=== PATIENT | female | born 1935 | race Caucasian/White ===

== ENCOUNTER 2025-03-06 22:39 | Inpatient (IN) | payer MEDICARE, SELFPAY ==
[2025-03-06] VITALS (27 sets, daily range): BP systolic 101–153; BP diastolic 63–115; BMI 17.8
[2025-03-06 19:24] LABS: Hematocrit 42.0 % (37.0-47.0); Hemoglobin 13.1 g/dL (12.0-16.0); Mean Corp Hgb Conc. 31.2 g/dL (33.0-37.0); Mean Corpuscular Volume 91.7 fL (81.0-99.0); Nucleated Red Blood Cells % 0 %; Platelet Count 268 10^3/uL (130-400); Red Cell Dist. Width 16.3 % (11.5-14.5)
[2025-03-06] MEDS: NSS 500 IV (19:40)
[2025-03-06] MEDS: ADENOCARD 6 MG IV (19:40)
[2025-03-06] MEDS: ADENOCARD 12 MG IV (19:44)
[2025-03-06 19:48] LABS: ALT (SGPT) 15 U/L (0-35); AST (SGOT) 22 U/L (14-36); Albumin 4.3 g/dl (3.5-5.0); Alkaline Phosphatase 117 U/L (38-126); Blood Urea Nitrogen 18 mg/dl (7-17); Calcium 9.6 mg/dl (8.4-10.2); Carbon Dioxide 29 mmol/L (22-30); Chloride 95 mmol/L (98-107); Estimated Creatinine Clearance 31 ml/min; Glucose 122 mg/dl (70-99); Lipase 32 U/L (23-300); Potassium 3.6 mmol/L (3.5-5.1); Sodium 135 mmol/L (135-145); Total Protein 7.2 g/dl (6.3-8.2); eGFR > 60.00
--- NOTE | 2025-03-06 19:56 | ED.GENMED ---
History of Present Illness
General
Chief Complaint: Heart Rate Problem
Source: patient and ambulance crew
Exam Limitations: none
Time Seen by Provider: 03/06/25 19:02
Nursing documentation reviewed up to this point in time: agreed with
History of Present Illness
History of Present Illness:
89-year-old female smoker not on home oxygen presents with fatigue cough abdominal pain constipation for a few weeks, she thought due to taking oxycodone for chronic back pain trying Ex-Lax much relief had increased pain in her upper abdomen afraid
that she was going to fall she felt weak and short of breath EMS was called found her to be in SVT given adenosine with no relief although sounds like the IV infiltrated, here she was tachypneic tachycardic placed on oxygen treated with adenosine x
2 with transient improvement of her heart rate and then back into the A-fib
Past History
Past History
ED Past Medical History: HTN
Social History
Tobacco: Smoker
Alcohol: None
Drug: None
Living: with family
Phy Exam
Physical Exam
Physical Exam:
Physical Exam
General: Ill-appearing female
Neck: No jaundice
Heart: Tachycardic
Lungs: Rhonchi bilaterally
Abdomen: Soft positive epigastric pain
Neuro: alert and oriented
Skin: no rash
Psychiatric: well kept. interactive and cooperative
Extremities: Slight edema
Course
Orders/Labs/Results
Orders:
Orders
03/06/25 19:11
EKG [Electrocardiogram (*1)] Urgent
Reason for Study: Tachycardia
EKG- Treatment ONCE
03/06/25 19:18
Complete Blood Count/With Diff Urgent
Comprehensive Metabolic Panel Urgent
Lipase Urgent
Comment: ADDON
Troponin I Urgent
03/06/25 19:34
0.9% Sodium Chloride 500 ml [Nss] 500 ml IV BOLUS
Adenosine [Adenocard] 6 mg IV NOW STA
03/06/25 19:35
Add On- LAB Urgent
Tests Added?: lipase
CR Chest Portable - 1 View Urgent
Comment:
Reason For Exam: sob
Reason Study Needs to be Portable: Patient Unstable
03/06/25 19:36
CT Abd/pelvis W Iv Cont Urgent
Comment:
Reason For Exam: full of stool pain
03/06/25 19:44
Adenosine [Adenocard] 12 mg .ROUTE .STK-MED ONE
Adenosine [Adenocard] 12 mg IV NOW STA
03/06/25 19:48
Adenosine [Adenocard] 12 mg IV NOW STA
Diltiazem HCl [Cardizem] 10 mg IV NOW STA
03/06/25 20:00
Diltiazem 125 mg/125 ml Nss [Cardizem] 125 mg in 125 ml IV PER PROTOCOL
Initial dose in mg/hr, then titrate:: 5
Titrate to keep:: Heart rate 80-100 bpm
Titrate by mg/hr:: 5 mg/hr
Frequency of titrations (minutes):: 15
Maximum dose in mg/hr:: 15
03/06/25 21:36
Doxycycline Hyclate [Vibramycin] 100 mg 0.9% Sodium Chloride 250 ml [Nss] 250 ml IV NOW
03/06/25 21:45
Blood Culture Q30M
LISSA Source: Blood/Venous
Specimen Description:
03/06/25 22:15
Blood Culture Q30M
LISSA Source: Blood/Venous
Specimen Description:
Abnormal Lab Results
03/06/25
19:18
MCHC 31.2 L g/dL
(33.0-37.0)
RDW 16.3 H %
(11.5-14.5)
Absolute Neuts (auto) 6.6 H 10^3/uL
(1.4-6.5)
Absolute Lymphs (auto) 1.1 L 10^3/uL
(1.2-3.4)
Absolute Monos (auto) 0.7 H 10^3/uL
(0.1-0.6)
Neutrophils % 77.7 H %
(42.2-75.2)
Lymphocytes % 12.8 L %
(20.5-51.1)
Chloride 95 L mmol/L
(98-107)
BUN 18 H mg/dl
(7-17)
Glucose 122 H mg/dl
(70-99)
03/06/25 19:18
03/06/25 19:18
Vital Signs
Initial and Last Documented VS:
Initial Vital Signs
Temp Pulse Resp BP Pulse Ox
97.8 F 181 22 151/102 93
03/06/25 19:03 03/06/25 19:03 03/06/25 19:03 03/06/25 19:03 03/06/25 19:03
Last Documented Vital Signs
Temp Pulse Resp BP Pulse Ox
97.8 F 120 26 146/93 95
03/06/25 19:03 03/06/25 21:30 03/06/25 21:30 03/06/25 21:25 03/06/25 21:30
MDM/Problems Addressed
Differential Diagnosis Includes:
SVT AF electrolyte abnormality intra-abdominal process occult infection constipation
MDM/Problems Addressed:
Tachycardia constipation
Chronic conditions affecting care:
Smoker likely COPD chronic pain
Acute Exacerbation and/or Progression of Chronic Illness:
Smoker COPD chronic pain
*Radiology
Radiology exam reviewed: preliminary read by ED provider
*Pulse Oximetry
SaO2: 93
Oxygen Mode of Delivery: Room air
Patient hypoxic: yes
*EKG
Interpreted by ED Provider?: Yes
Interpretation: abnormal
Comparison EKG: no comparison EKG present
Heart Rate: 174
Rate: tachycardiac
Rhythm: SVT
Ischemia: non-specific ST changes
*Analysis Analyst Interpretation
Rate: tachycardiac
Interpretation: abnormal
Heart Rate: 174
Rhythm: SVT
*Critical Care Note
Total Time (30-74mins, 75-104mins- exclusive of procedures): 32
Update Note
Update Note:
Update, patient transiently converted after 6 and then 12 of adenosine went back into SVT, labs noted chest x-ray noted she is a smoker she has got a productive cough will start on antibiotics continue IV diltiazem will require admission
ED Attending Note
-
Portions of this chart may have been created with voice recognition software.� Occasional wrong word or��sound alike� substitutions may have occurred due to the inherent limitations of voice recognition software.
Discharge Plan
Departure
Patient Disposition: Admit
Date of Disposition: 03/06/25
Time of Disposition: 21:49
Admit to: Telemetry
Presentation/result/management discussed w/ accepting MD/DO: Hospitalist
Patient with high blood pressure during this ER visit?: No
Condition: Fair
Covid-19: Not Applicable
Discharge Problem:
SVT, Bronchitis, Constipation, Pneumonia, COPD
Prescriptions:
No Action
lidocaine 5 % Adhesive Patch,Medicated
1 patch TOPICAL DAILYPRN PRN (Reason: lower back)
kvwwfau-kfogfyklivooj-auonntnk [Excedrin Extra Strength] 250-250-65 mg Tablet
2 tab PO DAILYPRN PRN (Reason: mild pain)
oxycodone 5 mg Tablet
5 mg PO TIDPRN PRN (Reason: severe pains)
losartan-hydrochlorothiazide 100-12.5 mg Tablet
1 tab PO DAILY
IBgard 90 mg Capsule,Delayed,Extend.Release
90 mg PO DAILYPRN PRN (Reason: stoamch issuses)
Referrals:
Kristal Flores DO [Family Provider, Family Practice]
Interventions
Interventions:
*Risk Screen - Suicide Last Done: 03/06/25 19:18
*General Assessment Last Done: 03/06/25 19:24
*Neglect/Abuse Screening Last Done: 03/06/25 19:18
*ED- Fall Risk Assessment Last Done: 03/06/25 19:18
*ED COVID-19 Vaccine History Last Done: 03/06/25 19:18
*ED Influenza Vaccine History Last Done: 03/06/25 19:18
ED- Cardiac Assessment Last Done: 03/06/25 19:16
ED- Pulmonary Assessment Last Done: 03/06/25 19:23
Discharge Date and Time
Print Language: KENYAN
[2025-03-06 19:58] LABS: Troponin I 0.029 ng/ml
[2025-03-06] MEDS: CARDIZEM 10 MG IV (20:20)
[2025-03-06] MEDS: CARDIZEM 125 IV (20:21)
--- NOTE | 2025-03-06 21:09 | EDRN ---
Shaheed aware that patient is maxed out on Cardizem and heart rate still remains in the 170s.
--- NOTE | 2025-03-06 21:36 | HPS.HSE ---
Family Physician
-
Family Physician: Kristal Flores
Chief Complaint
-
Tachycardia
History of Present Illness
This is a 89-year-old who has past medical history of COPD not on home O2, hypertension, hyperlipidemia, restrictive lung disease presenting to the emergency department with progressive abdominal pain over the last 2 weeks and then development of
shortness of breath and tachycardia.
Patient reported that symptoms began with some abdominal fullness and pain about 2 weeks ago. She is on oxycodone chronically for general severe pain. She stated that they were not helping and she felt constipated with her last bowel movement
unknown. She stated however with time she believed that the pain moved onto her epigastric area and then she started getting short of breath. She feels weak and tired. She called her son today due to her ongoing symptoms who called EMS. EMS
found her to be tachycardic to as high as 190 but hemodynamically stable and not hypoxic. Patient herself denies any cough. She denies any fevers or chills. Although she specifically denies any chest pain. She has no recent flulike symptoms.
She denies any recent vaccinations.
In the emergency department she was afebrile with a temp of nine 7.8, she was satting 95% on 2 L. Blood pressure was 146/93 and heart rate was as 180. ECG currently showing supraventricular tachycardia to 182 narrow complex and no acute ischemic
findings. Troponin was 0.029.
CBC was only unremarkable. Electrolytes BUN and creatinine were normal. Glucose was normal.
Chest x-ray with mild cardiomegaly and increasing station markings and possibly left lower lobe opacity. CT of the abdomen pelvis showing no evidence of constipation no bowel obstruction no diverticulitis. Has no other abnormal findings. No acute
inflammatory process within the abdomen or pelvis. Small bilateral pleural effusions noted with some third spacing. Mild fatty infiltration of the liver.
Patient was initially treated with adenosine 6 mg then 12 mg x 2 without any improvement. She is started on diltiazem now. Currently she is in the 130s showing atrial fibrillation on telemetry
Medical History
Past Medical History
Past Medical History: Reports COPD and HTN
Past Surgical History: Reports None
Social History
Tobacco: Smoker
Alcohol: None
Drug: None
Personal: Single
Living: Alone
Family History
Family History: Not pertinent
Allergies / Home Medications
Allergies reflects when Allergies were last updated in [facility].
Home Medications with original date entered in [facility]
Allergy/Medication List:
Allergies
Allergy/AdvReac Type Severity Reaction Status Date / Time
Penicillins Allergy Rash Verified 03/06/25 19:11
Home Medications
bxowvst-qtdbivnxuahnd-dqxcvbkf 250 mg-250 mg-65 mg tablet (Excedrin Extra Strength) 2 tab PO DAILYPRN PRN mild pain 03/06/25
lidocaine 5 % topical patch 1 patch topical DAILYPRN PRN lower back 03/06/25
losartan 100 mg-hydrochlorothiazide 12.5 mg tablet 1 tab PO DAILY Blood Pressure 03/06/25
oxycodone 5 mg tablet 5 mg PO TIDPRN PRN severe pains 03/06/25
peppermint oil 90 mg capsule,delayed,extended release (IBgard) 90 mg PO DAILYPRN PRN stoamch issuses 03/06/25
Review of Systems
-
Constitutional: Reports No Symptoms
EENT: Reports No Symptoms
Respiratory: Reports Trouble Breathing
Cardiac: Reports Diaphoresis
Abdomen/GI: Reports Abdominal Pain and Constipated
: Reports No Symptoms
Musculoskeletal: Reports No Symptoms
Skin: Reports No Symptoms
Neurological: Reports No Symptoms
Endocrine: Reports No Symptoms
Hematologic/Lymphatic: Reports No Symptoms
Psych: Reports No Symptoms
Physical Exam
Vital Signs
Vital Signs
Temp Pulse Resp BP Pulse Ox
97.8 F 120 26 146/93 95
03/06/25 19:03 03/06/25 21:30 03/06/25 21:30 03/06/25 21:25 03/06/25 21:30
Physical Exam
General: Appears in Distress
HEENT: NormoCephalic, Anicteric, Moist mucous membranes, Atraumatic, PERRLA and Oxygen
Respiratory: Crackles; No Wheezes
Cardiac: S1/S2, Irregular Rhythm and Tachycardia
Breast: Deferred by me
GI: Soft, Non Distended and Normal Bowel Sounds
Rectal: Deferred by Provider
Genito-urinary: Deferred by me
Musculoskeletal: No Clubbing, No Cyanosis and No Edema
Skin: Warm
Neuro: Nonfocal/grossly intact
Hematologic/Lymphatic: No Lymphadenopathy
Psych: Calm
Laboratory Results
-
03/06/25 19:18
03/06/25 19:18
Laboratory Results
Total Bilirubin 0.7 mg/dl (0.2-1.3) 03/06/25 19:18
AST 22 U/L (14-36) 03/06/25 19:18
ALT 15 U/L (0-35) 03/06/25 19:18
Alkaline Phosphatase 117 U/L (38-126) 03/06/25 19:18
Troponin I 0.029 ng/ml 03/06/25 19:18
Lipase 32 U/L (23-300) 03/06/25 19:18
Data Reviewed
-
Diagnostic Radiology: Image Personally Visualized and interpreted and Report Reviewed by me
CT Scan: Report Reviewed by me
Medical Tests (Nuc Med, Echo, EKG etc): Image Personally Visualized and interpreted
Lab Data: Labs Reviewed by me
Old Records: Reviewed
Impression/Plan
-
IMPRESSION:
89-year-old with history of COPD not on home O2 presents to emergency department with new onset atrial fibrillation with rapid ventricular response in the setting of abdominal discomfort. She appears to have some mild CHF based on x-ray and CT
scan. There is no finding to confirm her abdominal pain is from an acute infectious or inflammatory process. No clear evidence of pneumonia at this time.
PLAN:
Atrial fibrillation with rapid ventricle response -new onset,HD stable, no signs of an acute infection
- Admit to IVU
- Continue diltiazem drip to maintain rates less than 120
- Patient is ideal candidate for anticoagulation, will start Eliquis in a.m.
- N.p.o. for now pending cardiology in a.m. for possible TRAMAINE and cardioversion
- Will give low-dose metoprolol
- Trend troponin, check TSH, echocardiogram in a.m.
CHF -trace bilateral pleural effusion and some increased third spacing on CT scan suggestive of CHF which could be secondary to prolonged A-fib
- Check proBNP
- Echo as above
- Given stable oxygen status will give gentle diuresis lasix 20mg iv
PNA - LLL opacity on xray. No seen on CT a/p. Unlikely pna. No fevers, leuks.
- check procal
- hold further abx for now
COPD - no evidence of acute exacerbation
- supplemental O2
- prn nebs
- nicotine patch prn
DVT prophylaxis�to start apixaban
CODE STATUS�DNR
[2025-03-06] MEDS: OFIRMEV 100 IV (22:19)
[2025-03-06] MEDS: PEPCID 20 MG IV (22:19)
[2025-03-06] MEDS: NSS (PRESERVATIVE FREE) 8 ML IV (22:19)
[2025-03-06 22:51] LABS: COVID-19 Antigen Negative (Negative)
[2025-03-06 22:57] LABS: Procalcitonin < 0.05 ng/ml (0.0-0.25)
[2025-03-07] VITALS (32 sets, daily range): BP systolic 109–164; BP diastolic 53–96; BMI 17.8; BMI 16.9
--- NOTE | 2025-03-07 00:05 | EDRN ---
per provider Sin, if HR is less than 100, titrate Cardizem down to 10mg/hr.
--- NOTE | 2025-03-07 00:22 | EDRN ---
this RN noted end of atrial fibrillation on patient's monitor; EKG obtained and house provider Sin notified.
--- NOTE | 2025-03-07 00:26 | EDRN ---
per house provider Sin, decrease Cardizem to 5mg/hr and maintain at that rate unless HR drops below 60. if HR drops below 60, discontinue Cardizem.
[2025-03-07] MEDS: LASIX 20 MG IV ×2 (00:40→08:01)
[2025-03-07 06:46] LABS: Hematocrit 36.9 % (37.0-47.0); Hemoglobin 12.3 g/dL (12.0-16.0); Mean Corp Hgb Conc. 33.3 g/dL (33.0-37.0); Mean Corpuscular Volume 88.7 fL (81.0-99.0); Platelet Count 242 10^3/uL (130-400); Red Cell Dist. Width 16.0 % (11.5-14.5)
[2025-03-07] MEDS: ELIQUIS 2.5 MG PO ×2 (08:00→20:48)
[2025-03-07] MEDS: PEPCID 20 MG IV ×2 (08:00→20:48)
[2025-03-07] MEDS: TYLENOL 650 MG PO (09:09)
[2025-03-07] MEDS: COZAAR 100 MG PO (09:09)
--- NOTE | 2025-03-07 10:59 | CON.CAR ---
Addendum entered and electronically signed by Shantal Mercado MD 03/07/25 14:19:
I saw and examined the patient.
The Agricultural Service Technician's note was reviewed and I agree with the note.
Comment: General: Well developed, well nourished in NAD.
Heart: Non displaced PMI, RRR, no murmurs, No S3, S4, no rubs.
Lungs: Oxygen in place with coarse breath sounds
Extremities: No clubbing, cyanosis and trace edema bilaterally.
Neuro: Grossly nonfocal, awake, alert
She came in with at least 2 weeks if not more of abdominal pain, constipation which she feels is in part related to oxycodone type medication which she is on for her back pain. She has felt particularly bad especially yesterday with shortness of
breath, fatigue, heart racing and abdominal discomfort. She was found to be in rapid atrial fibrillation which is a new rhythm for her. She converted spontaneously when I saw her in the emergency department however she is back in rapid atrial
fibrillation requiring up titration of intravenous diltiazem drip. She currently is on oxygen. In the setting of feeling poorly and rapid atrial fibrillation she has required IV diuresis. She was noted to have urinary retention in addition which
is being addressed by primary care service
Impression:
She is admitted with abdominal pain, diarrhea and newly diagnosed A-fib 03/06/2025
Acute HF unknown EF (echo pending)
Newly diagnosed paroxysmal A-fib with RVR of unclear duration
Possible acute bronchitis
HTN
COPD
Active smoker�1 pack/day
Urinary retention
She presents with rapid atrial fibrillation which is now paroxysmal. We discussed this at great length. She is currently on IV diltiazem drip. We discussed anticoagulation and she is agreeable to proceed. She is [id number]-ESDl score 5. Continue
to follow telemetry continue to follow EKGs. She may require antiarrhythmic drug therapy if she remains paroxysmal with increased rates. She does have underlying COPD but would still consider amiodarone.
Thyroid function testing is normal.
She has heart failure with unknown left ventricular ejection fraction. Echocardiogram pending. Continue with diuresis. Urinary retention per primary service.
Continue to follow blood pressure. Continue antihypertensive medication.
Smoking cessation is recommended. COPD followed by primary care provider.
Original Note:
Consultation
Consultation Request
Date/Time Consultation Requested: 03/06/2025 and 2342
Date/Time Consultation Performed: 03/07/2025 at 0932
Requesting Provider: Dr. Flynn
Performing Provider: Dr. Shantal Mercado
Reason for Consultation: Newly diagnosed A-fib, acute HF
Medical History
-
History of Present Illness:
Patient came to the ER last night with abdominal pain and alternating constipation and diarrhea, ultimately admitted with new A-fib and acute HF prompting cardiology consultation. Patient has generalized pain described as severe for which she takes
oxycodone. Patient reports constipation and increasing abdominal fullness over weeks. Patient tried taking a laxative at home and then started with diarrhea. Patient says that for the last 2 weeks she has felt exhausted and been SOB, she had a
sense of doom and so she finally called her son to ask for help. Patient's son called EMS and they found patient to be tachycardic with a heart rate reportedly as high as 190 and they attempted to give adenosine, but she had IV infiltration.
Patient was given additional adenosine with a patent IV line in the ER 6 mg IV initially then 12 mg IV and then went back into SVT. Patient then started on Cardizem gtt and eventually converted from A-fib with RVR to SR. Then during this HPI
patient was simultaneously undergoing straight cath for urine retention and went back into A-fib, but was asymptomatic. Patient denies any history of CHF and was taking HCTZ as part of the losartan combo pill prior to admission, but has never taken
Lasix.
PMH:
HTN
COPD
Active smoker
Past Medical History
Past Medical History: Other (In HPI)
Past Surgical History: None
Social History
Tobacco: Smoker
Alcohol: None
Drug: None
Personal:
Living: Alone
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
Family History
Family History: Other (No FH of CAD)
Allergies / Home Medications
Allergy/AdvReac Type Severity Reaction Status Date / Time
Penicillins Allergy Rash Verified 03/06/25 19:11
�Medication �Instructions �Recorded �Confirmed �Type
bbnjqjd-jpwtuhrcgpedx-pbqyhxue 250 2 tab PO DAILYPRN PRN mild pain 03/06/25 03/06/25 History
mg-250 mg-65 mg tablet (Excedrin
Extra Strength)
lidocaine 5 % topical patch 1 patch topical DAILYPRN PRN lower 03/06/25 03/06/25 History
back
losartan 100 1 tab PO DAILY Blood Pressure 03/06/25 03/06/25 History
mg-hydrochlorothiazide 12.5 mg
tablet
oxycodone 5 mg tablet 5 mg PO TIDPRN PRN severe pains 03/06/25 03/06/25 History
peppermint oil 90 mg 90 mg PO DAILYPRN PRN stoamch 03/06/25 03/06/25 History
capsule,delayed,extended release issuses
(IBgard)
Review of Systems
-
History Source: Patient
All other systems: Negative unless noted
Physical Exam
Vital Signs
Temp Pulse Resp BP Pulse Ox
98.0 F 87 18 145/63 97
03/07/25 06:56 03/07/25 06:45 03/07/25 06:45 03/07/25 06:30 03/07/25 09:31
GEN: NAD, AAO x 3
HEENT: EOMI, MMM
LUNGS: 2 L NC. Diffuse rales and rhonchi
CV: Initially in SR, then went into A-fib with RVR during HPI. Reg, S1/S2, no murmur
ABD: ND
EXT: No edema B/L LE
NEURO: Gross non-focal
SKIN: No rash
Lab Results
03/07/25 06:39
Troponin I 0.029 ng/ml 03/06/25 19:18
Nwc-H-Yfdgdwikoae Pept 6740 pg/ml 03/06/25 22:20
Impression / Plan
-
PCP: Dr. Kristal Flores
Cardiology: None prior to admission
Impression:
Admitted with abdominal pain, diarrhea and newly diagnosed A-fib 03/06/2025
Constipation and diarrhea
Abdominal pain
Acute HF unknown EF
Newly diagnosed paroxysmal A-fib with RVR of unclear duration
Possible acute bronchitis
HTN
COPD
Active smoker
Urinary retention
Echo 03/07/2025: Study pending
Plan:
-Patient came to the ER last night with abdominal pain and alternating constipation and diarrhea, ultimately admitted with new A-fib and acute HF prompting cardiology consultation. Patient has generalized pain described as severe for which she
takes oxycodone. Patient reports constipation and increasing abdominal fullness over weeks. Patient tried taking a laxative at home and then started with diarrhea. Patient says that for the last 2 weeks she has felt exhausted and been SOB, she
had a sense of doom and so she finally called her son to ask for help. Patient's son called EMS and they found patient to be tachycardic with a heart rate reportedly as high as 190 and they attempted to give adenosine, but she had IV infiltration.
Patient was given additional adenosine with a patent IV line in the ER 6 mg IV initially then 12 mg IV and then went back into SVT. Patient then started on Cardizem gtt and eventually converted from A-fib with RVR to SR. Then during this HPI
patient was simultaneously undergoing straight cath for urine retention and went back into A-fib, but was asymptomatic. Patient denies any history of CHF and was taking HCTZ as part of the losartan combo pill prior to admission, but has never taken
Lasix.
-ECG that was initially done in the ER last night was reviewed by me and looks like SVT with heart rate up to 182, follow-up ECG after adenosine shows A-fib with RVR and finally ECG from this morning reviewed by me looks like SR with PACs.
-Telemetry reviewed by me was SR on my arrival to the patient's room and then she went back into A-fib with RVR during straight catheter urine retention.
-Patient has newly diagnosed paroxysmal A-fib, but appears to be overall asymptomatic, no sensation of palpitations. Cardizem gtt rate increased to 15 mg/hr by me.
-Will consider adding antiarrhythmic drug, possibly amiodarone.
-TSH normal at 0.53.
-Overnight patient was started on Eliquis 2.5 mg BID (age 89, wt 44, Cre 0.8)
-Patient with newly diagnosed acute HF with unknown EF. proBNP 6730. Acute HF could be related to the newly diagnosed A-fib with RVR, duration is unknown. Patient reports some symptomatic improvement with initial attempts at IV diuresis.
-Continue Lasix 20 mg IV daily. Patient was taking HCTZ 12.5 mg daily as part of a combination losartan/HCTZ prior to admission and she will probably need to transition to plain losartan and Lasix upon discharge with discontinuation of HCTZ.
-Check echo, study pending.
-Outpatient dose of losartan 100 mg daily has been continued
-Will attempt to add cardioselective BB
[2025-03-07 11:09] LABS: Blood Urea Nitrogen 17 mg/dl (7-17); Calcium 9.3 mg/dl (8.4-10.2); Carbon Dioxide 33 mmol/L (22-30); Chloride 94 mmol/L (98-107); Estimated Creatinine Clearance 34 ml/min; Glucose 86 mg/dl (70-99); Magnesium 1.6 mg/dl (1.6-2.3); Potassium 2.9 mmol/L (3.5-5.1); Sodium 135 mmol/L (135-145); eGFR > 60.00
--- NOTE | 2025-03-07 11:17 | W.PN.HOSP.TC ---
Addendum entered and electronically signed by Arabella Flynn MD 03/07/25 11:21:
Hypokalemia- Replace and also replace mag
Original Note:
Today's Communication/Plan
-
Switch to PO BB if OK with cardiology
Lasix
Straight cath
Add Doxy
Speech eval.
Assessment / Plan
Assessment / Plan
89-year-old female with abdominal pain for the past 2 weeks, shortness of breath and tachycardia
CT A/P-no evidence of constipation bowel obstruction. Mild sigmoid diverticulosis without diverticulitis. No obstructive uropathy. No acute inflammatory process. Mild fatty liver. Small bilateral pleural effusions. Hiatal hernia. Third
spacing.
CVS: S1-S2 normal, sm at apex
Chest: coarse BS biaterally
Abdomen: Soft, NT / Bowel sounds present
Extremities: No edema, normal pulses
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
# Atrial fibrillation with RVR-new onset
On Cardizem drip and Eliquis
Now in SR
Cardiology Evaluating now
Can switch to PO if agrees too
TSH-normal
Troponin-normal
# CHF-type unclear
Likely rate related
Echo pending
Continue Lasix
# Acute Bronchitis- Add Doxy and Mucinex. Speech eval to rule out aspiration.
# Abdominal discomfort on admission-no acute changes on CT. Bladder scan with 800 ml urine. Straight cath. Check lipase . Add PPI
# Hypertension-was on losartan hydrochlorothiazide as outpatient. Hold
# COPD-no exacerbation
# Diverticulosis
# Fatty liver per CT
# Hiatal hernia-Pepcid. Add a dose of PPI now.
# Smoker-cessation counseling. Continue nicotine patch
# DVT prophylaxis-Eliquis
# DNR
D/W Cardiology
D/W RN at bed side
Part of this note was created using voice recognition system. Occasional wrong word or��sound alike� substitutions may have inadvertently occurred due to the inherent limitations of voice recognition software. If noted kindly bring it to my
attention for correction.
Anticipated Discharge: 24 - 48 hours
Subjective/Interval History
-
Date of Service: March 07, 2025
Objective Data
-
Labs:
Laboratory Results
03/07/25 03/07/25 03/07/25
06:39 10:11 10:40
WBC 10.6
Hgb 12.3
Hct 36.9 L
Plt Count 242
Sodium Cancelled Cancelled 135
Potassium Cancelled Cancelled 2.9 L
Chloride Cancelled Cancelled 94 L
Carbon Dioxide Cancelled Cancelled 33 H
BUN Cancelled Cancelled 17
Creatinine Cancelled Cancelled 0.8
Glucose Cancelled Cancelled 86
Calcium Cancelled Cancelled 9.3
Vital Signs:
Vital Signs
Temp Pulse Resp BP Pulse Ox
98.0 F 87 18 145/63 97
03/07/25 06:56 03/07/25 06:45 03/07/25 06:45 03/07/25 06:30 03/07/25 09:31
I&O
03/06/25 03/07/25 03/08/25
06:59 06:59 06:59
Output Total 600 / 600
Balance -600 / -600
[2025-03-07] MEDS: CARDIZEM 125 IV (11:48)
[2025-03-07 11:57] LABS: Lipase 27 U/L (23-300)
[2025-03-07 12:12] LABS: Urine Character Clear (Clear)
[2025-03-07] MEDS: VENTOLIN NEBULES 2.5 MG INH (12:19)
[2025-03-07] MEDS: KCL 40 MEQ PO (12:33)
[2025-03-07] MEDS: PROTONIX 40 MG PO (12:33)
[2025-03-07] MEDS: MAGNESIUM SULFATE 100 IV (12:33)
[2025-03-07] MEDS: NICODERM TRANSDERMAL 7 MG TRANSDERM (12:34)
[2025-03-07] MEDS: VIBRAMYCIN 100 MG PO ×2 (12:34→20:48)
[2025-03-07] MEDS: MUCINEX 600 MG PO ×2 (12:34→20:48)
[2025-03-07] MEDS: KCL 270 MEQ IV (13:36)
--- NOTE | 2025-03-07 14:18 | W.CHA2DS2VAS ---
[id number] Score
Score
Age in Years (65=0, 65-74=1, >/=75=2): > or = 75
Sex (Female=+1): Female
Congestive Heart Failure History (Yes=+1): Yes
Hypertension History (Yes=+1): Yes
Stroke/TIA/Thromboembolism History (Yes=+2): No
Vascular Disease History (Yes=+1): No
Diabetes Mellitus (Yes=+1): No
Score >/=2 is otherwise an anticoagulation candidate: 5
--- NOTE | 2025-03-07 16:19 | PTOTSP ---
Dysphagia Evaluation:
Pt presents w/ acute (abnormal CXR, SOB) and chronic risk factors for aspiration/dysphagia (COPD, restrictive lung disease). However, no overt s/sx of aspiration observed during bedside swallow evaluation, no reported hx of PNAs, and WBC is WNL. It
is recommended that pt is placed on Regulars, Thins diet and ST is reconsulted if concern for aspiration PNA.
Recommendations:
1. Regulars, Thins
2. Medications as best tolerated
3. Strategies: Single sips/small bites, slow rate, alternating liquid washes
4. ST to sign off. Reconsult if change in diet level tolerance, pt presentation, or to consider VSE to objectively rule out aspiration.
[2025-03-07] MEDS: NSS (PRESERVATIVE FREE) 8 ML IV (21:03)
[2025-03-07] MEDS: ZOFRAN 4 MG IV (23:00)
[2025-03-07 23:45] LABS: Blood Urea Nitrogen 19 mg/dl (7-17); Calcium 9.1 mg/dl (8.4-10.2); Carbon Dioxide 32 mmol/L (22-30); Chloride 96 mmol/L (98-107); Estimated Creatinine Clearance 33 ml/min; Glucose 116 mg/dl (70-99); Potassium 3.7 mmol/L (3.5-5.1); Sodium 132 mmol/L (135-145); eGFR > 60.00
[2025-03-08 03:44] VITALS: BP 127/74
[2025-03-08 06:00] VITALS: BMI 16.7
[2025-03-08] MEDS: CARDIZEM 125 IV ×2 (06:19→22:30)
[2025-03-08 07:30] VITALS: BP 157/74
[2025-03-08 08:13] LABS: Blood Urea Nitrogen 18 mg/dl (7-17); Calcium 9.1 mg/dl (8.4-10.2); Carbon Dioxide 36 mmol/L (22-30); Chloride 98 mmol/L (98-107); Estimated Creatinine Clearance 29 ml/min; Glucose 97 mg/dl (70-99); Potassium 3.9 mmol/L (3.5-5.1); Sodium 137 mmol/L (135-145); eGFR > 60.00
[2025-03-08] MEDS: MUCINEX 600 MG PO ×2 (08:28→20:55)
[2025-03-08] MEDS: VIBRAMYCIN 100 MG PO ×2 (08:28→20:55)
[2025-03-08] MEDS: ELIQUIS 2.5 MG PO ×2 (08:28→20:55)
[2025-03-08] MEDS: COZAAR 100 MG PO (08:28)
[2025-03-08] MEDS: NSS (PRESERVATIVE FREE) 8 ML IV (08:29)
[2025-03-08] MEDS: LASIX 20 MG IV (08:29)
[2025-03-08] MEDS: PEPCID 20 MG IV (08:30)
[2025-03-08] MEDS: NICODERM TRANSDERMAL 7 MG TRANSDERM (08:32)
[2025-03-08] MEDS: PACERONE 200 MG PO (08:41)
[2025-03-08 09:06] LABS: Magnesium 1.9 mg/dl (1.6-2.3)
[2025-03-08 11:18] VITALS: BP 149/87
--- NOTE | 2025-03-08 11:49 | W.PN.HOSP.TC ---
Addendum entered and electronically signed by Arabella Flynn MD 03/08/25 15:50:
moderate protein calorie malnutrition
Original Note:
Today's Communication/Plan
-
Continue antibiotics
Add nebulizer treatments
Diuretics
Heart rate controlled
Case management to check pricing for Eliquis
Assessment / Plan
Assessment / Plan
89-year-old female with abdominal pain for the past 2 weeks, shortness of breath and tachycardia
CT A/P-no evidence of constipation bowel obstruction. Mild sigmoid diverticulosis without diverticulitis. No obstructive uropathy. No acute inflammatory process. Mild fatty liver. Small bilateral pleural effusions. Hiatal hernia. Third
spacing.
CVS: S1-S2 normal, sm at apex
Chest: coarse BS biaterally
Abdomen: Soft, NT / Bowel sounds present
Extremities: No edema
Echo-Left ventricular ejection fraction is normal with an ejection fraction of 64 %. RV size and function normal. Hydrocloride sclerosis. Dense mitral valve calcification. MVP. Moderate to severe MR. Severe TR. PA pressure 61 mmHg
# Atrial fibrillation with RVR-new onset
On Cardizem drip at 5 mg and Eliquis
Patient converted to sinus rhythm yesterday and back in A-fib
Amiodarone started following
Cardiology following
TSH-normal
Troponin-normal
# CHF-type unclear
Likely rate related
Echo as above
Continue Lasix
# Hyponatremia secondary to fluid retention-better. Also do not restart hydrochlorothiazide
# Acute Bronchitis- Added Doxy and Mucinex. Speech eval appreciated. Continue regular with thins
# Acute hypoxic respiratory failure secondary to CHF and also bronchitis. Wean oxygen as tolerated
# Abdominal discomfort on admission-no acute changes on CT. Bladder scan with 790 ml urine. Straight cathed in ER for 1000ml. Will do Bladder scan again to check PVR . May need torres placed.
# Hypertension-was on losartan hydrochlorothiazide as outpatient. Hold
# COPD-no exacerbation
# Diverticulosis
# Fatty liver per CT
# Hiatal hernia-Pepcid. Add a dose of PPI now.
# Smoker-cessation counseling. Continue nicotine patch
# DVT prophylaxis-Eliquis
# DNR
D/W RN at bed side
D/W Claudio Stallings and [id number].;
Part of this note was created using voice recognition system. Occasional wrong word or��sound alike� substitutions may have inadvertently occurred due to the inherent limitations of voice recognition software. If noted kindly bring it to my
attention for correction.
Anticipated Discharge: 24 - 48 hours
Subjective/Interval History
-
Date of Service: March 08, 2025
Objective Data
-
Labs:
Laboratory Results
03/08/25
07:29
Sodium 137
Potassium 3.9
Chloride 98
Carbon Dioxide 36 H
BUN 18 H
Creatinine 0.9
Glucose 97
Calcium 9.1
Vital Signs:
Vital Signs
Temp Pulse Resp BP Pulse Ox
98.1 F 130 18 149/87 97
03/08/25 11:18 03/08/25 11:18 03/08/25 11:18 03/08/25 11:18 03/08/25 11:18
I&O
03/07/25 03/08/25 03/09/25
06:59 06:59 06:59
Intake Total 0 / 0
Output Total 1899 / 1899
Balance -1899 / -1899
[2025-03-08] MEDS: DUONEB 3 ML INH ×3 (11:57→17:57)
--- NOTE | 2025-03-08 12:39 | PN.CDI ---
CDI
- -
CDI:
Physician Documentation Request
Admit Date: 03/06/25 22:39
Dear Doctor Rina,
Please review the following and provide your response in the progress notes.
Clinical Indicators:
- High Density Talc Coater Operator note indicates moderate protein calorie malnutrition
- Nutrient intake </= 75% estimated energy needs, >/= 1 month
- Moderate subcutaneous loss over rib cage
- Moderate muscle loss over clavicle, temporal
Based on the above information and your assessment, which of the following most accurately represents the patient's nutritional status?
Moderate protein calorie malnutrition
Other (please specify)
[place] Criteria ([facility] Hospitalist 2017)
2 or more criteria must be present for either
non severe or severe malnutrition
Note that the criteria differs related to the
presence of an acute or chronic illness
Acute Illness Chronic Illness
Energy Intake Non Severe: <75% for >7 days Non Severe: <75% for >1 month
Severe: <50% for >5 days Severe: <75% for >1 month
Weight Loss Non Severe: 1-2% over 1 week Non Severe: 5% over 1 month
5% over 1 month 7.5% over 3 months
7.5% over 3 months 10% over 6 months
1 year N/A 20% over 1 year
Severe: >2% over 1 week Severe: >5% over 1 month
>5% over 1 month >7.5% over 3 months
>7.5% over 3 months >10% over 6 months
1 year N/A >20% over 1 year
Body Fat Non Severe: Mild Decrease Non Severe: Mild Loss
Severe: Moderate Decrease Severe: Severe Loss
Muscle Mass Non Severe: Mild Decrease Non Severe: Mild Loss
Severe: Moderate Decrease Severe: Severe Loss
Fluid Accumulation Non Severe: Mild Accumulation Non Severe: Mild Accumulation
Severe: Moderate to severe Severe: Moderate to severe
accumulation accumulation
Reduced Molding Machine Tender Strength Non Severe: N/A Non Severe: N/A
Severe: Measurably reduced Severe: Measurably reduced
Additional criteria that can be used to Determine if Mild or Moderate Malnutrition ([employer] Manual 2018)
Mild Moderate Severe
Albumin gm/dl <3.0 gm/dl <2.5 gm/dl <2.0 gm/dl
Pre Albumin mg/dl <15 gm/dl <10 mg/dl <5.0 mg/dl
BMI <18.5 <17 <16
Use of terms such as suspected, likely, concern for, or probable (associated with a specific diagnosis that is being evaluated, monitored, or treated as if it exists) are acceptable and can be coded in the inpatient setting, when documented at the
time of discharge.
Thank you,
Umair Yan RN
CDI Specialist
Please use your independent medical judgment in providing your response.
[2025-03-08] MEDS: CARDIZEM 5 MG IV (13:05)
--- NOTE | 2025-03-08 13:27 | PTCARENOTE ---
12:00 pm Pt had low urine output. Bladder scanned patient for [address] Flynn. Redd ordered secondary to patient's acute urinary retention. Redd inserted at 12:30 without difficulty. Initial Redd Output was 625 ml. made aware.
Made patient comfortable. Cont to assess patient status.
--- NOTE | 2025-03-08 13:33 | PTCARENOTE ---
1215- Pt's HR range was in the 130-[address] on tele. B/P 138/75. Dr. Flynn made aware. Pt medicated with Cardizem 5 mg IV as ordered an Cardiazem drip was increased from 5 mg/hr to 10/hr. Cont to assess patient status.
--- NOTE | 2025-03-08 14:00 | W.PN.CARDCBS ---
Addendum entered and electronically signed by Shantal Mercado MD 03/08/25 16:19:
Patient with both atrial fibrillation and atrial flutter/tachycardia. During this admission.
Addendum entered and electronically signed by Shantal Mercado MD 03/08/25 16:13:
I saw and examined the patient.
The Stunner Animal's note was reviewed and I agree with the note.
Comment: She is sleeping currently. Appears comfortable.
She initially presented with continued abdominal pain which has been problematic for 2 weeks to 1 month and multifactorial. She presented with shortness of breath and was found to be in atrial a flutter/tachycardia with rapid ventricular response.
In the emergency department she converted to sinus rhythm. She is now back in atrial flutter/atrial tachycardia.
On presentation she also had heart failure noted. Echocardiogram reviewed which revealed ejection fraction 64%. Moderate to severe possibly severe mitral regurgitation in the setting of volume overload. Severe TR with PA pressure 61 mmHg. She
continues to diurese on IV Lasix.
Impression:
She is admitted with abdominal pain, diarrhea and newly diagnosed atrial flutter/atrial tachycardia 03/06/2025
Acute HF with preserved ejection fraction EF
Moderate to severe mitral regurgitation
Moderate to severe tricuspid regurgitation with increased PA pressures
Possible acute bronchitis
HTN
COPD
Active smoker�1 pack/day
Urinary retention
She has been paroxysmal with atrial arrhythmias. She is back in rapid atrial tachycardia. IV diltiazem increased. Given paroxysmal nature of disease have added oral amiodarone and have increased amiodarone oral load. Continue to follow.
Previously we discussed anticoagulation and she is agreeable to proceed. Oral anticoagulation started. She is [id number] score 5. Continue to follow telemetry continue to follow EKGs.
Thyroid function test normal.
She has heart failure with unknown left ventricular ejection fraction. Echocardiogram pending. Continue with diuresis. Urinary retention per primary service.
Continue to follow blood pressure. Continue antihypertensive medication.
Smoking cessation is recommended. COPD followed by primary care provider.
Original Note:
Today's Communication / Plan
-
-increase Amio 400 mg tid
-cont diuresis
Impression / Plan
-
PCP: Dr. Kristal Flores
Cardiology: None prior to admission
Impression:
Admitted with abdominal pain, diarrhea and newly diagnosed A-fib 03/06/2025
Constipation and diarrhea
Abdominal pain
Acute HF unknown EF
Newly diagnosed paroxysmal A-fib with RVR of unclear duration
Possible acute bronchitis
HTN
COPD
Active smoker
Urinary retention
Echo 03/07/2025: LVEF 64%, normal RV size and function, in some views possible posterior mitral valve prolapse, moderate to severe, probably severe MR, severe TR, PAP 61 mmHg
Plan:
-Patient came to the ER 03/06/2025 with abdominal pain and alternating constipation and diarrhea, ultimately admitted with new A-fib and acute HF prompting cardiology consultation. EMS initially found patient to be tachycardic with HR as high as
190. Patient was given adenosine in the ER 6 mg IV , then 12 mg IV and then went back into SVT. Patient then started on Cardizem gtt and eventually converted from A-fib with RVR to SR. Since admission going in and out of afib.
-remains on Cardizem gtt and initially started Amio 200 mg bid today, 03/08/2025
-on telemetry today was in NSR but went into what appears to be SVT/atrial tachycardia around 12:30 today 03/08, HRs to 160s and Cardizem uptitrated. Currently gtt at 10 mg/hr. Currently in afib 120s.
-will increase Amio to 400 mg tid while hospitalized
-son Dinesh 2.5 mg BID (age 87, wt 44, Cre 0.8), started 03/07/2025
-[id number] 5 (age, HTN, female, HF)
-TSH 0.53 WNL
-denies palps, lightheadedness
-consider BB for rate control/HF but cautious with COPD
-Patient denies any history of CHF and was taking HCTZ as part of the losartan combo pill prior to admission, but has never taken Lasix.
-Patient with newly diagnosed acute HF with unknown EF. proBNP 6730. Acute HF could be related to the newly diagnosed A-fib with RVR, duration is unknown. Patient reports some symptomatic improvement with initial attempts at IV diuresis.
-Continue Lasix 20 mg IV daily. Patient was taking HCTZ 12.5 mg daily as part of a combination losartan/HCTZ prior to admission and she will probably need to transition to plain losartan and Lasix upon discharge with discontinuation of HCTZ.
-echo 03/07/2025 with preserved EF, sev MR as above
-wt down 6 lbs since admission to 91 lbs. renal fxn stable BUN/creat 18/0.9
-Outpatient dose of losartan 100 mg daily has been continued
-Will attempt to add cardioselective BB
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
Subjective
Date of Service: March 08, 2025
-going in and out of afib/AT
-denies palps/lightheadness/SOB
Objective
Labs:
03/07/25 06:39
03/08/25 07:29
Labs
Hgb 12.3 g/dL (12.0-16.0) 03/07/25 06:39
Hct 36.9 % (37.0-47.0) L 03/07/25 06:39
Plt Count 242 10^3/uL (130-400) 03/07/25 06:39
Sodium 137 mmol/L (135-145) 03/08/25 07:29
Potassium 3.9 mmol/L (3.5-5.1) 03/08/25 07:29
BUN 18 mg/dl (7-17) H 03/08/25 07:29
Creatinine 0.9 mg/dL (0.6-1.0) 03/08/25 07:29
Glucose 97 mg/dl (70-99) 03/08/25 07:29
Troponins
03/06/25
19:18
Troponin I 0.029
Vital Signs and I&O:
Vital Signs
Temp Pulse Resp BP Pulse Ox
98.1 F 160 16 138/75 94
03/08/25 11:18 03/08/25 13:05 03/08/25 12:09 03/08/25 13:05 03/08/25 12:09
Vital Signs
Temp Pulse Resp BP Pulse Ox
98.1 F 160 16 138/75 94
03/08/25 11:18 03/08/25 13:05 03/08/25 12:09 03/08/25 13:05 03/08/25 12:09
Intake & Output
03/06/25 03/07/25 03/08/25 03/09/25
06:59 06:59 06:59 06:59
Intake Total 0 / 0
Output Total 1899 / 1899
Balance -0 / -1899
Physical Exam
Physical Exam
GEN: No distress, awake, Ox3, frail
HEENT: supple, anicteric, mmm
LUNGS: CTA, no wheezes/rales
CV: Tachy, irreg, irreg, no murmur
ABD: soft, BS+, NT/ND
EXT: No edema
NEURO: Gross non-focal
SKIN: No rash
[2025-03-08] MEDS: PACERONE 400 MG PO ×2 (15:36→21:03)
--- NOTE | 2025-03-08 16:44 | CM ---
Chart reviewed and patient states she lives alone in a split level home, with no steps to enter, patient is independent with adl's and ambulation, no dme, her daughter is very supportive and is at bedside.
Cost of Eliquis is $173 per month and Xarelto is $171.54 per month. Cardiology aware.
PCP: Dr Kristal Flores
Pharmacy' [facility] in [place]
--- NOTE | 2025-03-08 18:33 | PTCARENOTE ---
14:30 Pt's HR range 150-170;
--- NOTE | 2025-03-08 18:33 | PTCARENOTE ---
1430- Pt's HR 150-170 range. On tele patient in atrial tachycardia with A- fib intermittently. Pt continued on Cardizem Drip. Spoke with Cardiology MOSAICIST. Pt given now dose of Amiodarone 400 mg Po as ordered. HR range 70-90 range. Cont to assess
patient status.
[2025-03-08 18:38] VITALS: BP 137/84
[2025-03-08 19:11] VITALS: BP 115/62
--- NOTE | 2025-03-08 21:25 | PTCARENOTE ---
Addendum entered by Diane Ramirez RN 03/09/25 07:30:
RN notified PROGRAM OR PROJECT ADMINISTRATOR, patient still has blood in the torres w/o clots. Orders added for a CBC, Urinalysis reflex to culture, and to hold her Eliquis.
Original Note:
RN noted patient to have blood in the torres, w/o any clots. Patient denies pain at this time. PROGRAM OR PROJECT ADMINISTRATOR made aware. No new orders at this time. Patient resting in bed with call shields within reach.
[2025-03-08 23:46] VITALS: BP 117/62
[2025-03-09] VITALS (7 sets, daily range): BP systolic 104–124; BP diastolic 51–61; BMI 16.4
--- NOTE | 2025-03-09 05:34 | W.PN.UPDATE ---
Update Note
Progress Note Update
2100 RN reports torres with hematuria.
Torres bag with dark red. Draining good with no clots. Pt without complaints. Pt had torres placed earlier in day for ongoing urine retention. Pt also with new afib newly on eliquis.
unsure if hematuria caused by torres insertion exacerbated by eliquis. Will hold am dose for now.
[2025-03-09 07:06] LABS: Urine Character Cloudy (Clear)
[2025-03-09 07:12] LABS: Urine Red Blood Cell 80-90 /HPF (0-2); Urine Squamous Cell 0-2 /LPF (Few)
[2025-03-09 07:40] LABS: Hematocrit 34.7 % (37.0-47.0); Hemoglobin 11.4 g/dL (12.0-16.0); Mean Corp Hgb Conc. 32.9 g/dL (33.0-37.0); Mean Corpuscular Volume 89.7 fL (81.0-99.0); Nucleated Red Blood Cells % 0 %; Platelet Count 251 10^3/uL (130-400); Red Cell Dist. Width 16.2 % (11.5-14.5)
[2025-03-09 07:57] LABS: Blood Urea Nitrogen 23 mg/dl (7-17); Calcium 9.1 mg/dl (8.4-10.2); Carbon Dioxide 33 mmol/L (22-30); Chloride 97 mmol/L (98-107); Estimated Creatinine Clearance 28 ml/min; Glucose 94 mg/dl (70-99); Magnesium 1.8 mg/dl (1.6-2.3); Potassium 3.8 mmol/L (3.5-5.1); Sodium 134 mmol/L (135-145); eGFR > 60.00
[2025-03-09] MEDS: DUONEB 3 ML INH ×4 (08:06→19:51)
[2025-03-09] MEDS: PACERONE 400 MG PO ×3 (09:28→21:54)
[2025-03-09] MEDS: MUCINEX 600 MG PO ×2 (09:28→21:54)
[2025-03-09] MEDS: NSS (PRESERVATIVE FREE) 8 ML IV (09:29)
[2025-03-09] MEDS: VIBRAMYCIN 100 MG PO ×2 (09:29→21:54)
[2025-03-09] MEDS: COZAAR 100 MG PO (09:29)
[2025-03-09] MEDS: NICODERM TRANSDERMAL 7 MG TRANSDERM (09:30)
[2025-03-09] MEDS: PEPCID 20 MG IV (09:30)
[2025-03-09] MEDS: LASIX 20 MG IV (09:30)
[2025-03-09] MEDS: CARDIZEM 125 IV (11:21)
--- NOTE | 2025-03-09 12:47 | W.PN.CARDCBS ---
Today's Communication / Plan
-
Maintain amiodarone
Eventually resume anticoagulation when no further bleeding.
Impression / Plan
-
PCP: Dr. Kristal Flores
Cardiology: None prior to admission
She initially presented with continued abdominal pain which has been problematic for 2 weeks to 1 month and multifactorial. She presented with shortness of breath and was found to be in atrial a flutter/tachycardia with rapid ventricular response.
In the emergency department she converted to sinus rhythm. She is now back in atrial flutter/atrial tachycardia.
On presentation she also had heart failure noted. Echocardiogram reviewed which revealed ejection fraction 64%. Moderate to severe possibly severe mitral regurgitation in the setting of volume overload. Severe TR with PA pressure 61 mmHg. She
continues to diurese on IV Lasix.
Impression:
She is admitted with abdominal pain, diarrhea
Newly diagnosed atrial flutter/atrial tachycardia 03/06/2025
Acute HF with preserved ejection fraction EF
Moderate to severe mitral regurgitation
Moderate to severe tricuspid regurgitation with increased PA pressures
Possible acute bronchitis
HTN
COPD
Active smoker�1 pack/day
Urinary retention
Echocardiogram 03/07/2025 finds normal left ventricular size and function with ejection fraction of 64%, normal right ventricular size and function. There is moderate to severe mitral regurgitation with posterior leaflet mitral valve prolapse,
severe tricuspid regurgitation with estimated pulmonary artery pressure of 61 mmHg.
Recommendations:
She has been paroxysmal with atrial tachyarrhythmias.
IV diltiazem for rate control
Oral amiodarone for attempted rhythm control
Now in SR
[id number] score 5.
Eliquis initiated but now on hold due to hematuria, resume anticoagulation for atrial fibrillation related thromboembolic risk reduction when feasible
She has HFpEF
Continue with diuresis with Lasix 20 mg IV daily.
Hypertension
Blood pressure is well-controlled on current antihypertensive drug therapy
Continue losartan 100 mg daily
Urinary retention and now hematuria per primary service.
Eliquis currently on hold given hematuria. Further evaluation and management as per primary service.
Smoking cessation is recommended.
COPD followed by primary care provider.
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
Subjective
Date of Service: March 09, 2025
Denies chest pain shortness of breath palpitations or dizziness.
Objective
Labs:
03/09/25 06:49
03/09/25 06:49
Labs
Hgb 11.4 g/dL (12.0-16.0) L 03/09/25 06:49
Hct 34.7 % (37.0-47.0) L 03/09/25 06:49
Plt Count 251 10^3/uL (130-400) 03/09/25 06:49
Sodium 134 mmol/L (135-145) L 03/09/25 06:49
Potassium 3.8 mmol/L (3.5-5.1) 03/09/25 06:49
BUN 23 mg/dl (7-17) H 03/09/25 06:49
Creatinine 0.9 mg/dL (0.6-1.0) 03/09/25 06:49
Glucose 94 mg/dl (70-99) 03/09/25 06:49
Troponins
03/06/25
19:18
Troponin I 0.029
Vital Signs and I&O:
Vital Signs
Temp Pulse Resp BP Pulse Ox
97.4 F 70 16 104/56 90
03/09/25 11:30 03/09/25 11:41 03/09/25 11:41 03/09/25 11:30 03/09/25 11:41
Vital Signs
Temp Pulse Resp BP Pulse Ox
97.4 F 70 16 104/56 90
03/09/25 11:30 03/09/25 11:41 03/09/25 11:41 03/09/25 11:30 03/09/25 11:41
Intake & Output
03/07/25 03/08/25 03/09/25 03/10/25
06:59 06:59 06:59 05:59
Intake Total 0 / 0 570 / 570
Output Total 1900 / 1900 1025 / 1025
Balance -1900 / -1900 -455 / -455
Physical Exam
Physical Exam
Elderly woman resting in bed appears comfortable.
Regular rate and rhythm with normal S1 and S2, no S3 no S4 degree 1/6 apical holosystolic murmur no rubs. PMI is normally placed
Lungs poor inspiratory effort but otherwise clear, no wheezes. No rales or rhonchi
Abdomen soft nontender nondistended with normoactive bowel sounds
Extremities with trace pretibial edema bilaterally
--- NOTE | 2025-03-09 14:51 | W.PN.HOSP.TC ---
Today's Communication/Plan
-
Encourage p.o. intake as p.o. intake is very poor
Get labs done tomorrow morning prior to the dose of Lasix tomorrow
Continue Cardizem for rate control
Watch hematuria
Assessment / Plan
Assessment / Plan
89-year-old female with abdominal pain for the past 2 weeks, shortness of breath and tachycardia
CT A/P-no evidence of constipation bowel obstruction. Mild sigmoid diverticulosis without diverticulitis. No obstructive uropathy. No acute inflammatory process. Mild fatty liver. Small bilateral pleural effusions. Hiatal hernia. Third
spacing.
CVS: S1-S2 normal, sm at apex
Chest: coarse BS bilaterally
Abdomen: Soft, NT / Bowel sounds present
Extremities: No edema
Echo-Left ventricular ejection fraction is normal with an ejection fraction of 64 %. RV size and function normal. Dense mitral valve calcification. MVP. Moderate to severe MR. Severe TR. PA pressure 61 mmHg
# Atrial fibrillation with RVR-new onset
On Cardizem drip at 5 mg and hold Eliquis
Patient converted to sinus rhythm yesterday and back in A-fib
Amiodarone started
Cardiology following
TSH-normal
Troponin-normal
# CHF-acute HFpEF
Likely rate related
Echo as above
Continue Lasix
# Hematuria with urinary retention-placed a Redd catheter yesterday. Hold Eliquis given mild blood in the urine
# Hyponatremia secondary to fluid retention-better. Also do not restart hydrochlorothiazide
# Acute Bronchitis- Added Doxy and Mucinex. Speech eval appreciated. Continue regular with thins
# Acute hypoxic respiratory failure secondary to CHF and also bronchitis. Wean oxygen as tolerated
# Hypertension-was on losartan hydrochlorothiazide as outpatient. Hold
# COPD-no exacerbation
# Diverticulosis
# Fatty liver per CT
# Hiatal hernia-Pepcid. Continue PPI now.
# Smoker-cessation counseling. Continue nicotine patch
# DVT prophylaxis-Eliquis
# DNR
D/W RN at bed side
Son updated.
Part of this note was created using voice recognition system. Occasional wrong word or��sound alike� substitutions may have inadvertently occurred due to the inherent limitations of voice recognition software. If noted kindly bring it to my
attention for correction.
Anticipated Discharge: > 48 hours
Subjective/Interval History
-
Date of Service: March 09, 2025
Objective Data
-
Labs:
Laboratory Results
03/09/25
06:49
WBC 8.2
Hgb 11.4 L
Hct 34.7 L
Plt Count 251
Sodium 134 L
Potassium 3.8
Chloride 97 L
Carbon Dioxide 33 H
BUN 23 H
Creatinine 0.9
Glucose 94
Calcium 9.1
Vital Signs:
Vital Signs
Temp Pulse Resp BP Pulse Ox
97.4 F 70 16 104/56 90
03/09/25 11:30 03/09/25 11:41 03/09/25 11:41 03/09/25 11:30 03/09/25 11:41
I&O
03/08/25 03/09/25 03/10/25
06:59 06:59 05:59
Intake Total 0 / 0 570 / 570
Output Total 1900 / 1900 1025 / 1025
Balance -1900 / -1900 -455 / -455
[2025-03-09] MEDS: PROTONIX 40 MG PO (15:04)
[2025-03-09] MEDS: ROXICODONE 5 MG PO (22:07)
[2025-03-10] VITALS (7 sets, daily range): BP systolic 111–142; BP diastolic 56–71; BMI 17.4
[2025-03-10] MEDS: CARDIZEM 125 IV (00:15)
[2025-03-10] MEDS: DECADRON 4 MG IV ×2 (01:00→17:15)
[2025-03-10] MEDS: DUONEB 3 ML INH ×4 (07:29→20:24)
[2025-03-10 10:32] LABS: Blood Urea Nitrogen 30 mg/dl (7-17); Calcium 9.1 mg/dl (8.4-10.2); Carbon Dioxide 29 mmol/L (22-30); Chloride 94 mmol/L (98-107); Estimated Creatinine Clearance 19 ml/min; Glucose 143 mg/dl (70-99); Magnesium 1.7 mg/dl (1.6-2.3); Potassium 3.9 mmol/L (3.5-5.1); Sodium 131 mmol/L (135-145); eGFR 36.41
[2025-03-10] MEDS: COZAAR 100 MG PO (11:44)
[2025-03-10] MEDS: LASIX 20 MG IV (11:44)
[2025-03-10] MEDS: NICODERM TRANSDERMAL 7 MG TRANSDERM (11:45)
[2025-03-10] MEDS: MUCINEX 600 MG PO ×2 (11:45→20:00)
[2025-03-10] MEDS: NSS (PRESERVATIVE FREE) 8 ML IV (11:46)
[2025-03-10] MEDS: PACERONE 400 MG PO ×3 (11:46→21:28)
[2025-03-10] MEDS: PEPCID 20 MG IV (11:46)
[2025-03-10] MEDS: PROTONIX 40 MG PO (11:48)
[2025-03-10] MEDS: VIBRAMYCIN 100 MG PO ×2 (11:48→20:01)
[2025-03-10] MEDS: MIRALAX 17 GRAMS PO (13:15)
[2025-03-10] MEDS: MAGNESIUM OXIDE 400 MG PO (13:15)
[2025-03-10] MEDS: SENOKOT 17.2 MG PO ×2 (13:15→20:01)
--- NOTE | 2025-03-10 14:18 | W.PN.HOSP.TC ---
Today's Communication/Plan
-
hold further Lasix
Hold losartan
Encourage p.o. intake today
Add Decadron
Encourage encourage out of bed
DC Cardizem rate. Changed to Cardizem CD if okay with cardiology
Assessment / Plan
Assessment / Plan
89-year-old female with abdominal pain for the past 2 weeks, shortness of breath and tachycardia
CT A/P-no evidence of constipation bowel obstruction. Mild sigmoid diverticulosis without diverticulitis. No obstructive uropathy. No acute inflammatory process. Mild fatty liver. Small bilateral pleural effusions. Hiatal hernia. Third
spacing.
CVS: S1-S2 normal, sm at apex
Chest: coarse BS bilaterally
Abdomen: Soft, NT / Bowel sounds present
Extremities: No edema
Echo-Left ventricular ejection fraction is normal with an ejection fraction of 64 %. RV size and function normal. Dense mitral valve calcification. MVP. Moderate to severe MR. Severe TR. PA pressure 61 mmHg
# Atrial fibrillation with RVR-new onset
On Cardizem drip at 2.5 mg and hold Eliquis
Patient converted to sinus rhythm yesterday and back in A-fib
Amiodarone started
Cardiology following
TSH-normal
Troponin-normal
Switch to long-acting Cardizem if okay with cardiology
# CHF-acute HFpEF
Likely rate related
Echo as above
Hold Lasix
# Acute kidney injury-hold further Lasix. Encourage p.o. intake today
# COPD exacerbation-with acute bronchitis continue nebulizer treatments. Add IV steroids. Continue doxycycline, Mucinex. Speech evaluation appreciated. Continue regular with thins
# Hematuria with urinary retention-placed a Redd catheter yesterday. Hold Eliquis given mild blood in the urine
# Hyponatremia secondary to fluid retention-better. Also do not restart hydrochlorothiazide
# Acute hypoxic respiratory failure secondary to CHF and also COPD exacerbation and bronchitis. Wean oxygen as tolerated
# Hypertension-was on losartan hydrochlorothiazide as outpatient. Hold
# Diverticulosis
# Fatty liver per CT
# Hiatal hernia-Pepcid. Continue PPI now.
# Smoker-cessation counseling. Continue nicotine patch
# DVT prophylaxis-Eliquis
# DNR
D/W RN at bed side
Son updated.
Part of this note was created using voice recognition system. Occasional wrong word or��sound alike� substitutions may have inadvertently occurred due to the inherent limitations of voice recognition software. If noted kindly bring it to my
attention for correction.
Anticipated Discharge: > 48 hours
Subjective/Interval History
-
Date of Service: March 10, 2025
Objective Data
-
Labs:
Laboratory Results
03/10/25
10:06
Sodium 131 L
Potassium 3.9
Chloride 94 L
Carbon Dioxide 29
BUN 30 H
Creatinine 1.4 H
Glucose 143 H
Calcium 9.1
Vital Signs:
Vital Signs
Temp Pulse Resp BP Pulse Ox
97.9 F 68 16 132/64 95
03/10/25 11:35 03/10/25 11:58 03/10/25 11:58 03/10/25 11:44 03/10/25 11:58
I&O
03/09/25 03/10/25 03/11/25
06:59 05:59 06:59
Intake Total 570 / 570 600 / 600
Output Total 1025 / 1025 300 / 300 100 / 100
Balance -455 / -455 300 / 300 -100 / -100
[2025-03-11 03:36] VITALS: BP 139/72
[2025-03-11 06:00] VITALS: BMI 16.5
[2025-03-11 07:00] VITALS: BP 153/79
[2025-03-11 07:15] LABS: Blood Urea Nitrogen 32 mg/dl (7-17); Calcium 9.4 mg/dl (8.4-10.2); Carbon Dioxide 34 mmol/L (22-30); Chloride 95 mmol/L (98-107); Estimated Creatinine Clearance 23 ml/min; Glucose 106 mg/dl (70-99); Magnesium 1.8 mg/dl (1.6-2.3); Potassium 4.3 mmol/L (3.5-5.1); Sodium 133 mmol/L (135-145); eGFR 48.63
[2025-03-11] MEDS: DUONEB 3 ML INH ×4 (07:23→19:18)
[2025-03-11] MEDS: NICODERM TRANSDERMAL 7 MG TRANSDERM (08:20)
[2025-03-11] MEDS: MUCINEX 600 MG PO ×2 (08:20→20:57)
[2025-03-11] MEDS: PACERONE 400 MG PO ×3 (08:20→20:58)
[2025-03-11] MEDS: MIRALAX PO (08:21)
[2025-03-11] MEDS: VIBRAMYCIN 100 MG PO ×2 (08:21→20:58)
[2025-03-11] MEDS: DECADRON 4 MG IV ×2 (08:21→16:59)
[2025-03-11] MEDS: TYLENOL 650 MG PO (08:23)
[2025-03-11] MEDS: SENOKOT PO ×2 (08:24→21:07)
[2025-03-11] MEDS: CARDIZEM 30 MG PO ×3 (08:38→20:57)
[2025-03-11] MEDS: MAALOX 30 ML PO (08:38)
[2025-03-11] MEDS: PROTONIX 40 MG PO (08:38)
[2025-03-11 09:12] LABS: ALT (SGPT) 24 U/L (0-35); AST (SGOT) 27 U/L (14-36); Albumin 3.5 g/dl (3.5-5.0); Alkaline Phosphatase 113 U/L (38-126); Total Protein 6.3 g/dl (6.3-8.2)
--- NOTE | 2025-03-11 10:38 | PTCARENOTE ---
Roberta delgadillo dc'ed as per MR order.
--- NOTE | 2025-03-11 11:35 | W.PN.HOSP.TC ---
Today's Communication/Plan
-
Continue steroids
Acapella
Changed Cardizem to p.o.
Continue antibiotics
Sputum cultures if possible
Bladder scan to make sure patient is not retaining urine
Restart Eliquis
Assessment / Plan
Assessment / Plan
89-year-old female with abdominal pain for the past 2 weeks, shortness of breath and tachycardia
CT A/P-no evidence of constipation bowel obstruction. Mild sigmoid diverticulosis without diverticulitis. No obstructive uropathy. No acute inflammatory process. Mild fatty liver. Small bilateral pleural effusions. Hiatal hernia. Third
spacing.
CVS: S1-S2 normal, sm at apex
Chest: coarse BS bilaterally
Abdomen: Soft, NT / Bowel sounds present
Extremities: No edema
Echo-Left ventricular ejection fraction is normal with an ejection fraction of 64 %. RV size and function normal. Dense mitral valve calcification. MVP. Moderate to severe MR. Severe TR. PA pressure 61 mmHg
# Atrial fibrillation with RVR-new onset
On Cardizem drip at 2.5 mg changed to 30 Q6H, If BP Ok will change to CD
RESTART Eliquis
Afib -> converted to sinus rhythm -> A-fib-> now in SR again
Amiodarone started
Cardiology following
TSH-normal
Troponin-normal
# CHF-acute HFpEF
Likely rate related
Echo as above
Hold Lasix again today and start PO tomorrow
# Acute kidney injury-hold further Lasix today. Encourage p.o. intake today. Add Acapella
# Hematuria with urinary retention-placed a Redd catheter yesterday. Hold Eliquis given mild blood in the urine
# Hyponatremia secondary to fluid retention-better. Also do not restart hydrochlorothiazide
# Acute hypoxic respiratory failure secondary to CHF and also COPD exacerbation and bronchitis. Wean oxygen as tolerated. Rpt CXR.
# Hypertension-was on losartan hydrochlorothiazide as outpatient. Holding due to JORGE ALBERTO
# Diverticulosis
# Fatty liver per CT
# Hiatal hernia-Pepcid. Continue PPI now.
# Smoker-cessation counseling. Continue nicotine patch
# DVT prophylaxis-Eliquis
# DNR
Discussed with case management
Discussed with patient's son and updated encouraged to come up with places for rehab
Part of this note was created using voice recognition system. Occasional wrong word or��sound alike� substitutions may have inadvertently occurred due to the inherent limitations of voice recognition software. If noted kindly bring it to my
attention for correction.
Anticipated Discharge: 24 - 48 hours
Subjective/Interval History
-
Date of Service: March 11, 2025
Objective Data
-
Labs:
Laboratory Results
03/11/25
06:31
Sodium 133 L
Potassium 4.3
Chloride 95 L
Carbon Dioxide 34 H
BUN 32 H
Creatinine 1.1 H
Glucose 106 H
Calcium 9.4
Total Bilirubin 0.6
AST 27
ALT 24
Alkaline Phosphatase 113
Vital Signs:
Vital Signs
Temp Pulse Resp BP Pulse Ox
97.7 F 85 18 153/79 95
03/11/25 07:00 03/11/25 11:09 03/11/25 11:09 03/11/25 08:20 03/11/25 11:09
I&O
03/10/25 03/11/25 03/12/25
05:59 06:59 06:59
Intake Total 600 / 600 0 / 0 240 / 240
Output Total 300 / 300 900 / 900
Balance 300 / 300 -900 / -900 240 / 240
[2025-03-11] MEDS: ELIQUIS 2.5 MG PO ×2 (13:32→20:57)
[2025-03-11 15:00] VITALS: BP 141/81
--- NOTE | 2025-03-11 16:12 | CM ---
Chart reviewed. Care ongoing.
Cont abx
Discussed w/ hospitalist rehab planning for patient. PT/OT orders to be placed
Patient cont O2 at this time. Does not use any at baseline
--- NOTE | 2025-03-11 16:17 | W.PN.CARDCBS ---
Addendum entered and electronically signed by Eliazar Mallory MD 03/11/25 19:54:
89-year-old woman admitted with cholecystitis and found to be in atrial fibrillation with acute heart failure
PMH: Hypertension, COPD, active smoker
Current meds: Doxycycline, losartan 100 mg a day currently on hold, Mucinex 600 every 12, nicotine patch, DuoNebs, amiodarone 400 3 times daily, pantoprazole 40 daily, Senokot, polyethylene, dexamethasone, diltiazem 30 every 6, apixaban 2.5 mg twice
daily
122/70, pulse 86, respiratory rate 18, afebrile, frail, feisty, diminished breath sounds, irregular rate and rhythm, systolic murmur at apex, no edema
Chest x-ray today: Vascular congestion bilateral infiltrates/effusions
ECG March 10 sinus rhythm, septal FL,
Telemetry: Back in atrial fib
Echo: Pending
Sodium 133, potassium 4.3, BUN and creatinine are 32 and 1.1, proBNP was 6740 on the , troponin 0.029 and 0.015
Impression:
Newly diagnosed paroxysmal atrial fibrillation
Acute HFpEF
Hypertension
COPD
Ongoing tobacco use urinary retention abdominal pain
Plan:
Overall she is improved regarding HFpEF and paroxysmal atrial fibrillation, with periods of sinus rhythm. However currently she is in atrial fibs with a rapid ventricular response.
Continue reduced dose apixaban, oral diltiazem, and amiodarone. Over time suspect that atrial fibrillation will dwindle in sinus rhythm will predominate.
Await echocardiogram
Not currently on a diuretic, will continue to follow volume status.
Original Note:
Today's Communication / Plan
-
-cont Diltiazem, Amio for rate control of afib/AT
Impression / Plan
-
PCP: Dr. Kristal Flores
Cardiology: None prior to admission
She initially presented with continued abdominal pain which has been problematic for 2 weeks to 1 month and multifactorial. She presented with shortness of breath and was found to be in atrial a flutter/tachycardia with rapid ventricular response.
In the emergency department she converted to sinus rhythm. She is now back in atrial flutter/atrial tachycardia.
On presentation she also had heart failure noted. Echocardiogram reviewed which revealed ejection fraction 64%. Moderate to severe possibly severe mitral regurgitation in the setting of volume overload. Severe TR with PA pressure 61 mmHg. She
continues to diurese on IV Lasix.
Impression:
She is admitted with abdominal pain, diarrhea
Newly diagnosed atrial flutter/atrial tachycardia 03/06/2025
Acute HF with preserved ejection fraction EF
Moderate to severe mitral regurgitation
Moderate to severe tricuspid regurgitation with increased PA pressures
Possible acute bronchitis
HTN
COPD
Active smoker�1 pack/day
Urinary retention
Echocardiogram 03/07/2025 finds normal left ventricular size and function with ejection fraction of 64%, normal right ventricular size and function. There is moderate to severe mitral regurgitation with posterior leaflet mitral valve prolapse,
severe tricuspid regurgitation with estimated pulmonary artery pressure of 61 mmHg.
Recommendations:
-contiues with paroxysmal atrial tachyarrhythmias- new diagnosis this admission
has been on IV diltiazem for rate control which was weaned off today 03/11/2025 and has been transitioned to oral diltiazem q 6 hr
Oral amiodarone for attempted rhythm control. Initially started on 200 mg bid on 03/08 but uptitrated to 400 mg tid when she had rapid atrial rates 03/08/2025. Has rec'd 2.8 gm load since Amio started. At time of discharge will provide plan for
reduction of Amiodarone dosing
She continues to go in and out of atrial fib, currently in afib HR 90s.
[id number] score 5.
Dinesh initiated this admission, held 03/09-03/10/2025 due to hematuria, resumed today 03/11/25. Hgb 11.4
She has HFpEF
Weight down 7 pounds since admission to 90 pounds today 03/11/2025
Lasix on hold due to JORGE ALBERTO, creat to 1.4 on 03/10. Creat 1.1 today 03/11
Consider resume Lasix in am, oral dosing
Losartan on hold due to JORGE ALBERTO
remains on O2 2L
PT/OT
Hypertension
Blood pressure overall controlled
losartan 100 mg daily on hold due to JORGE ALBERTO
Urinary retention and now hematuria per primary service.
hematuria resolved and Hgb stable- Eliquis resumed today 03/11/2025
Smoking cessation is recommended.
COPD followed by primary care provider.
Progress Note - [employer]
Subjective
Date of Service: March 11, 2025
no palps, SOB
anxious to get OOB
Objective
Labs:
03/09/25 06:49
03/11/25 06:31
Labs
Hgb 11.4 g/dL (12.0-16.0) L 03/09/25 06:49
Hct 34.7 % (37.0-47.0) L 03/09/25 06:49
Plt Count 251 10^3/uL (130-400) 03/09/25 06:49
Sodium 133 mmol/L (135-145) L 03/11/25 06:31
Potassium 4.3 mmol/L (3.5-5.1) 03/11/25 06:31
BUN 32 mg/dl (7-17) H 03/11/25 06:31
Creatinine 1.1 mg/dL (0.6-1.0) H 03/11/25 06:31
Glucose 106 mg/dl (70-99) H 03/11/25 06:31
Vital Signs and I&O:
Vital Signs
Temp Pulse Resp BP Pulse Ox
97.7 F 86 18 122/70 95
03/11/25 07:00 03/11/25 15:11 03/11/25 15:11 03/11/25 13:32 03/11/25 15:11
Vital Signs
Temp Pulse Resp BP Pulse Ox
97.7 F 86 18 122/70 95
03/11/25 07:00 03/11/25 15:11 03/11/25 15:11 03/11/25 13:32 03/11/25 15:11
Intake & Output
03/09/25 03/10/25 03/11/25 03/12/25
06:59 05:59 06:59 06:59
Intake Total 570 / 570 600 / 600 0 / 0 240 / 240
Output Total 1025 / 1025 300 / 300 900 / 900
Balance -455 / -455 300 / 300 -900 / -900 240 / 240
Physical Exam
Physical Exam
GEN: No distress, awake, Ox3
HEENT: supple, anicteric, mmm
LUNGS: CTA, no wheezes/rales
CV: irreg, irreg, 2/6 systolic murmur
ABD: soft, BS+, NT/ND
EXT: No edema
NEURO: Gross non-focal
SKIN: No rash
[2025-03-11 19:55] VITALS: BP 125/73
[2025-03-11 23:55] VITALS: BP 135/71
[2025-03-12] MEDS: DECADRON 4 MG IV ×4 (01:33→23:17)
[2025-03-12] MEDS: CARDIZEM 30 MG PO ×2 (01:34→10:37)
[2025-03-12] MEDS: FLUSH (NSS) 2 FLUSH IV (01:34)
[2025-03-12 03:55] VITALS: BP 142/69
[2025-03-12 06:00] VITALS: BMI 16.7
[2025-03-12 07:00] VITALS: BP 143/73
[2025-03-12] MEDS: DUONEB 3 ML INH ×3 (08:05→19:38)
[2025-03-12 09:06] LABS: Blood Urea Nitrogen 36 mg/dl (7-17); Calcium 9.5 mg/dl (8.4-10.2); Carbon Dioxide 35 mmol/L (22-30); Chloride 98 mmol/L (98-107); Estimated Creatinine Clearance 29 ml/min; Glucose 108 mg/dl (70-99); Potassium 4.5 mmol/L (3.5-5.1); Sodium 138 mmol/L (135-145); eGFR > 60.00
[2025-03-12] MEDS: ELIQUIS 2.5 MG PO ×2 (10:38→20:15)
[2025-03-12] MEDS: MIRALAX 17 GRAMS PO (10:38)
[2025-03-12] MEDS: MUCINEX 600 MG PO ×2 (10:38→20:15)
[2025-03-12] MEDS: NICODERM TRANSDERMAL 7 MG TRANSDERM (10:38)
[2025-03-12] MEDS: ROCEPHIN 1000 MG IV (10:39)
[2025-03-12] MEDS: LASIX 20 MG IV (10:39)
[2025-03-12] MEDS: STERILE WATER FOR INJECTION 10 ML IV (10:39)
[2025-03-12] MEDS: NSS (PRESERVATIVE FREE) 8 ML IV (10:40)
[2025-03-12] MEDS: PACERONE 400 MG PO ×3 (10:40→23:17)
[2025-03-12] MEDS: PROTONIX 40 MG PO (10:40)
[2025-03-12] MEDS: PEPCID 20 MG IV (10:40)
[2025-03-12] MEDS: SENOKOT 17.2 MG PO (10:41)
[2025-03-12] MEDS: VIBRAMYCIN 100 MG PO ×2 (10:41→20:14)
[2025-03-12] MEDS: DIAMOX 250 MG PO ×2 (10:42→20:14)
[2025-03-12] MEDS: DUONEB INH (11:23)
--- NOTE | 2025-03-12 12:09 | W.PN.HOSP.TC ---
Today's Communication/Plan
-
Diuretics restarted
Breathing better with IV steroids
Follow labs
PT OT evaluation
Encourage out of bed
Treat constipation
Assessment / Plan
Assessment / Plan
89-year-old female with abdominal pain for the past 2 weeks, shortness of breath and tachycardia
CT A/P-no evidence of constipation bowel obstruction. Mild sigmoid diverticulosis without diverticulitis. No obstructive uropathy. No acute inflammatory process. Mild fatty liver. Small bilateral pleural effusions. Hiatal hernia. Third
spacing.
CVS: S1-S2 normal, sm at apex
Chest: Decerased BS
Abdomen: Soft, NT / Bowel sounds present
Extremities: No edema
Echo-Left ventricular ejection fraction is normal with an ejection fraction of 64 %. RV size and function normal. Dense mitral valve calcification. MVP. Moderate to severe MR. Severe TR. PA pressure 61 mmHg
03/11/2025- chest [id number] vascular congestion and interstitial edema. Small bilateral pleural effusions and adjacent atelectasis.
# Atrial fibrillation with RVR-new onset
Cardizem drip at 2.5 mg changed to 30 Q6H, change to CD 120 mg today
Continue Eliquis
Afib -> converted to sinus rhythm -> A-fib-> now in SR again
Amiodarone started
Cardiology following
TSH-normal
Troponin-normal
# CHF-acute HFpEF
Likely rate related
Echo as above
Lasix and Diamox ordered
# Acute kidney injury- improved
# Hematuria with urinary retention- Redd catheter placed and removed. Bladder scan to make sure she is not retaining. Hematuria resolved
# Hyponatremia secondary to fluid retention-better. Also do not restart hydrochlorothiazide
# Acute hypoxic respiratory failure secondary to CHF and also COPD exacerbation and bronchitis. Wean oxygen as tolerated. ceftriaxone added . continue IV steroids
# Hypertension-was on losartan hydrochlorothiazide as outpatient. Blood pressure on the softer side therefore hold off on losartan now
# Diverticulosis
# Constipation- Miralax and Senna
# Fatty liver per CT
# Hiatal hernia-Pepcid. Continue PPI now.
# Smoker-cessation counseling. Continue nicotine patch
# DVT prophylaxis-Eliquis
# DNR
PT OT
Part of this note was created using voice recognition system. Occasional wrong word or��sound alike� substitutions may have inadvertently occurred due to the inherent limitations of voice recognition software. If noted kindly bring it to my
attention for correction.
Anticipated Discharge: 24 - 48 hours
Subjective/Interval History
-
Date of Service: March 12, 2025
Objective Data
-
Labs:
Laboratory Results
03/12/25
08:20
Sodium 138
Potassium 4.5
Chloride 98
Carbon Dioxide 35 H
BUN 36 H
Creatinine 0.9
Glucose 108 H
Calcium 9.5
Vital Signs:
Vital Signs
Temp Pulse Resp BP Pulse Ox
97.8 F 73 16 143/73 96
03/12/25 07:00 03/12/25 08:05 03/12/25 08:05 03/12/25 07:00 03/12/25 08:05
I&O
03/11/25 03/12/25 03/13/25
06:59 06:59 06:59
Intake Total 0 / 0 240 / 240
Output Total 900 / 900 400 / 400
Balance -900 / -900 -160 / -160
[2025-03-12 13:28] VITALS: BP 149/77
[2025-03-12] MEDS: CARDIZEM CD 120 MG PO (14:02)
[2025-03-12 16:30] VITALS: BP 132/68
--- NOTE | 2025-03-12 18:36 | W.PN.CARDCBS ---
Today's Communication / Plan
-
Still having some paroxysms of atrial fibrillation. Continue amiodarone load 400 mg p.o. 3 times daily. Check EKG.
Continue diltiazem and Eliquis
Back on Lasix 20 mg IV daily. Hopefully transition to oral Lasix over next 24 to 48 hours.
Resume losartan 50 mg daily.
Impression / Plan
-
PCP: Dr. Kristal Flores
Cardiology: None prior to admission
She initially presented with continued abdominal pain which has been problematic for 2 weeks to 1 month and multifactorial. She presented with shortness of breath and was found to be in atrial a flutter/tachycardia with rapid ventricular response.
In the emergency department she converted to sinus rhythm. She is now back in atrial flutter/atrial tachycardia.
On presentation she also had heart failure noted. Echocardiogram reviewed which revealed ejection fraction 64%. Moderate to severe possibly severe mitral regurgitation in the setting of volume overload. Severe TR with PA pressure 61 mmHg. She
continues to diurese on IV Lasix.
Impression:
She is admitted with abdominal pain, diarrhea
Newly diagnosed atrial flutter/atrial tachycardia 03/06/2025
Acute HF with preserved ejection fraction EF
Moderate to severe mitral regurgitation
Moderate to severe tricuspid regurgitation with increased PA pressures
Possible acute bronchitis
HTN
COPD
Active smoker�1 pack/day
Urinary retention
Echocardiogram 03/07/2025 finds normal left ventricular size and function with ejection fraction of 64%, normal right ventricular size and function. There is moderate to severe mitral regurgitation with posterior leaflet mitral valve prolapse,
severe tricuspid regurgitation with estimated pulmonary artery pressure of 61 mmHg.
Recommendations:
-contiues with paroxysmal atrial tachyarrhythmias- new diagnosis this admission
Continue amiodarone 400 mg p.o. 3 times daily. Will convert to 200 mg p.o. twice daily tomorrow. Continue diltiazem 120 mg daily.
[id number] score 5.
Eliblanca initiated this admission, held 03/09-03/10/2025 due to hematuria, resumed 03/11/25. Hgb 11.4
She has HFpEF
Weight down 7 pounds since admission to 90 pounds today 03/11/2025
Creatinine normal at 0.9. Continue Lasix 20 mg IV daily
Resume losartan in a.m. 50 mg daily at lower dose
remains on O2 2L
PT/OT
Hypertension
Would resume losartan 50 mg daily in AM.
Urinary retention and now hematuria per primary service.
hematuria resolved and Hgb stable- Eliquis resumed today 03/11/2025
Smoking cessation is recommended.
COPD followed by primary care provider.
Progress Note - [employer]
Subjective
Date of Service: March 12, 2025
Overall about the same. Remains on oxygen. Breathing is slightly improved. Back on diuretics.
Objective
Labs:
03/09/25 06:49
03/12/25 08:20
Labs
Hgb 11.4 g/dL (12.0-16.0) L 03/09/25 06:49
Hct 34.7 % (37.0-47.0) L 03/09/25 06:49
Plt Count 251 10^3/uL (130-400) 03/09/25 06:49
Sodium 138 mmol/L (135-145) 03/12/25 08:20
Potassium 4.5 mmol/L (3.5-5.1) 03/12/25 08:20
BUN 36 mg/dl (7-17) H 03/12/25 08:20
Creatinine 0.9 mg/dL (0.6-1.0) 03/12/25 08:20
Glucose 108 mg/dl (70-99) H 03/12/25 08:20
Vital Signs and I&O:
Vital Signs
Temp Pulse Resp BP Pulse Ox
97.5 F 95 18 132/68 92
03/12/25 13:28 03/12/25 16:30 03/12/25 15:35 03/12/25 16:30 03/12/25 16:30
Vital Signs
Temp Pulse Resp BP Pulse Ox
97.5 F 95 18 132/68 92
03/12/25 13:28 03/12/25 16:30 03/12/25 15:35 03/12/25 16:30 03/12/25 16:30
Intake & Output
03/10/25 03/11/25 03/12/25 03/13/25
05:59 06:59 06:59 06:59
Intake Total 600 / 600 0 / 0 240 / 240
Output Total 300 / 300 900 / 900 400 / 400 525 / 525
Balance 300 / 300 -900 / -900 -160 / -160 -525 / -525
Physical Exam
Physical Exam
GEN: No distress, awake, Ox3
HEENT: supple, anicteric, mmm
LUNGS: rhonchi
CV: Reg, S1/S2, 1/6 syst LSB, no gallop
ABD: soft, BS+, NT/ND
EXT: No edema
NEURO: Gross non-focal
SKIN: No rash
[2025-03-12 19:23] VITALS: BP 126/71
[2025-03-12] MEDS: SENOKOT PO (20:13)
[2025-03-12 23:30] VITALS: BP 122/80
--- NOTE | 2025-03-12 23:50 | PTCARENOTE ---
Pt voided small amount, then c/o feeling discomfort in lower abdomen. Bladder scanned for 549 ml. SHEYLA Darling notified and put order in for torres. 16 F Torres catheter placed without issue, drained 600 mls yellow urine. Pt states she's
feeling more comfortable now.
[2025-03-13] VITALS (7 sets, daily range): BP systolic 121–153; BP diastolic 57–95; PULSE 112; O2SAT 91; BMI 16.0
[2025-03-13] MEDS: DUONEB 3 ML INH ×4 (07:25→19:32)
[2025-03-13 09:04] LABS: Blood Urea Nitrogen 31 mg/dl (7-17); Calcium 9.7 mg/dl (8.4-10.2); Carbon Dioxide 31 mmol/L (22-30); Chloride 101 mmol/L (98-107); Estimated Creatinine Clearance 23 ml/min; Glucose 115 mg/dl (70-99); Potassium 4.1 mmol/L (3.5-5.1); Sodium 138 mmol/L (135-145); eGFR 48.63
[2025-03-13] MEDS: COZAAR 50 MG PO (09:40)
[2025-03-13] MEDS: PROTONIX 40 MG PO (09:40)
[2025-03-13] MEDS: DIAMOX 250 MG PO ×2 (09:40→21:26)
[2025-03-13] MEDS: ELIQUIS 2.5 MG PO ×2 (09:41→21:19)
[2025-03-13] MEDS: DECADRON 4 MG IV (09:41)
[2025-03-13] MEDS: MUCINEX 600 MG PO ×3 (09:41→21:19)
[2025-03-13] MEDS: PACERONE 400 MG PO (09:41)
[2025-03-13] MEDS: VIBRAMYCIN 100 MG PO ×2 (09:41→21:19)
[2025-03-13] MEDS: CARDIZEM CD 120 MG PO (09:41)
[2025-03-13] MEDS: NICODERM TRANSDERMAL 7 MG TRANSDERM (09:45)
[2025-03-13] MEDS: MIRALAX 17 GRAMS PO (09:46)
[2025-03-13] MEDS: STERILE WATER FOR INJECTION 10 ML IV (09:46)
[2025-03-13] MEDS: SENOKOT 17.2 MG PO (09:46)
[2025-03-13] MEDS: ROCEPHIN 1000 MG IV (09:47)
[2025-03-13] MEDS: LASIX 20 MG IV (10:11)
--- NOTE | 2025-03-13 10:12 | W.PN.CARDCBS ---
Today's Communication / Plan
-
Still having paroxysms of atrial fibs and atrial flutter
Will decrease amiodarone to 100 mg p.o. twice daily. Continue diltiazem. Continue Eliquis per
Will switch Lasix to 20 mg p.o. daily
Creatinine overall acceptable at 1.1
Repeat hemoglobin
Hopeful for discharge over next 24 hours
Impression / Plan
-
PCP: Dr. Kristal Flores
Cardiology: None prior to admission
She initially presented with continued abdominal pain which has been problematic for 2 weeks to 1 month and multifactorial. She presented with shortness of breath and was found to be in atrial a flutter/tachycardia with rapid ventricular response.
In the emergency department she converted to sinus rhythm. She is now back in atrial flutter/atrial tachycardia.
On presentation she also had heart failure noted. Echocardiogram reviewed which revealed ejection fraction 64%. Moderate to severe possibly severe mitral regurgitation in the setting of volume overload. Severe TR with PA pressure 61 mmHg. She
continues to diurese on IV Lasix.
Impression:
She is admitted with abdominal pain, diarrhea
Newly diagnosed atrial flutter/atrial tachycardia 03/06/2025
Acute HF with preserved ejection fraction EF
Moderate to severe mitral regurgitation
Moderate to severe tricuspid regurgitation with increased PA pressures
Possible acute bronchitis
HTN
COPD
Active smoker�1 pack/day
Urinary retention
Echocardiogram 03/07/2025 finds normal left ventricular size and function with ejection fraction of 64%, normal right ventricular size and function. There is moderate to severe mitral regurgitation with posterior leaflet mitral valve prolapse,
severe tricuspid regurgitation with estimated pulmonary artery pressure of 61 mmHg.
Recommendations:
-contiues with paroxysmal atrial tachyarrhythmias-having episodes of atrial flutter today. Will decrease amiodarone to 200 mg p.o. twice daily. Continue diltiazem 120 mg daily.
[id number] score 5.
Dinesh initiated this admission, held 03/09-03/10/2025 due to hematuria, resumed 03/11/25. Hgb 11.4. Recheck CBC
She has HFpEF
Weight down 10 lbs
Creatinine normal at 1.1. Will switch to Lasix 20 mg p.o. daily
Resume losartan 50 mg daily at lower dose
PT/OT
Hypertension
Would resume losartan 50 mg daily in AM.
Urinary retention and now hematuria per primary service.
hematuria resolved and Hgb stable- Eliquis resumed today 03/11/2025
Smoking cessation is recommended.
COPD followed by primary care provider.
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
Subjective
Date of Service: March 13, 2025
She is improving. Now off oxygen. Still having paroxysms of atrial fibs atrial flutter
Objective
Labs:
03/09/25 06:49
03/13/25 07:54
Labs
Hgb 11.4 g/dL (12.0-16.0) L 03/09/25 06:49
Hct 34.7 % (37.0-47.0) L 03/09/25 06:49
Plt Count 251 10^3/uL (130-400) 03/09/25 06:49
Sodium 138 mmol/L (135-145) 03/13/25 07:54
Potassium 4.1 mmol/L (3.5-5.1) 03/13/25 07:54
BUN 31 mg/dl (7-17) H 03/13/25 07:54
Creatinine 1.1 mg/dL (0.6-1.0) H 03/13/25 07:54
Glucose 115 mg/dl (70-99) H 03/13/25 07:54
Vital Signs and I&O:
Vital Signs
Temp Pulse Resp BP Pulse Ox
97.4 F 79 16 139/82 94
03/13/25 07:00 03/13/25 07:27 03/13/25 07:27 03/13/25 07:00 03/13/25 07:27
Vital Signs
Temp Pulse Resp BP Pulse Ox
97.4 F 79 16 139/82 94
03/13/25 07:00 03/13/25 07:27 03/13/25 07:27 03/13/25 07:00 03/13/25 07:27
Intake & Output
03/11/25 03/12/25 03/13/25 03/14/25
06:59 06:59 06:59 06:59
Intake Total 0 / 0 240 / 240 120 / 120
Output Total 900 / 900 400 / 400 1800 / 1800
Balance -900 / -900 -160 / -160 -1680 / -1680
Physical Exam
Physical Exam
GEN: No distress, awake, Ox3
HEENT: supple, anicteric, mmm
LUNGS: scatt rhoncho
CV: Irreg, S1/S2, 1/6 syst LSB, no gallop
ABD: soft, BS+, NT/ND
EXT: No edema
NEURO: Gross non-focal
SKIN: No rash
--- NOTE | 2025-03-13 10:15 | CM ---
Met with pt bedside. [facility] has accepted this patient after they verify her insurance. Pt is agreeable to [facility] As of 03/14 she will meet the 3 day Medicare criteria for SNF.
Plan: DC to Snf when medically stable
--- NOTE | 2025-03-13 10:29 | W.PN.HOSP.TC ---
Today's Communication/Plan
-
Cardizem
Diuresis
Off O2
Discharge planning for rehab
Assessment / Plan
Assessment / Plan
89-year-old female with abdominal pain for the past 2 weeks, shortness of breath and tachycardia
CT A/P-no evidence of constipation bowel obstruction. Mild sigmoid diverticulosis without diverticulitis. No obstructive uropathy. No acute inflammatory process. Mild fatty liver. Small bilateral pleural effusions. Hiatal hernia. Third
spacing.
CVS: S1-S2 irregular, sm at apex
Chest: Decreased BS , CTA
Abdomen: Soft, NT / Bowel sounds present
Extremities: No edema
Echo-Left ventricular ejection fraction is normal with an ejection fraction of 64 %. RV size and function normal. Dense mitral valve calcification. MVP. Moderate to severe MR. Severe TR. PA pressure 61 mmHg
03/11/2025- chest [id number] vascular congestion and interstitial edema. Small bilateral pleural effusions and adjacent atelectasis.
# Atrial fibrillation with RVR-new onset
Cardizem drip at 2.5 mg changed to 30 Q6H, change to CD 120 mg today
Continue Eliquis
Afib -> converted to sinus rhythm -> A-fib-> now in SR again
Amiodarone started
Cardiology following
TSH-normal
Troponin-normal
# CHF-acute HFpEF
Likely rate related
Echo as above
Po lasix
Weight better .
# Acute kidney injury- improved
# Hematuria with urinary retention- Redd catheter placed and removed. Bladder scan to make sure she is not retaining. Hematuria resolved. Redd placed again
# Hyponatremia secondary to fluid retention-better. Also do not restart hydrochlorothiazide
# Acute hypoxic respiratory failure secondary to CHF and also COPD exacerbation and bronchitis. Wean oxygen as tolerated. ceftriaxone added . continue IV steroids, taper
# Hypertension-was on Losartan Hydrochlorothiazide as outpatient. Losartan restarted for tomorrow .
# Diverticulosis
# Constipation- Miralax and Senna
# Fatty liver per CT
# Hiatal hernia-Pepcid. Continue PPI now.
# Smoker-cessation counseling. Continue nicotine patch
# DVT prophylaxis-Eliquis
# DNR
PT OT
Part of this note was created using voice recognition system. Occasional wrong word or��sound alike� substitutions may have inadvertently occurred due to the inherent limitations of voice recognition software. If noted kindly bring it to my
attention for correction.
Anticipated Discharge: Within 24 hours
Subjective/Interval History
-
Date of Service: March 13, 2025
Objective Data
-
Labs:
Laboratory Results
03/13/25
07:54
Sodium 138
Potassium 4.1
Chloride 101
Carbon Dioxide 31 H
BUN 31 H
Creatinine 1.1 H
Glucose 115 H
Calcium 9.7
Vital Signs:
Vital Signs
Temp Pulse Resp BP Pulse Ox
97.4 F 79 16 139/82 94
03/13/25 07:00 03/13/25 07:27 03/13/25 07:27 03/13/25 07:00 03/13/25 07:27
I&O
03/12/25 03/13/25 03/14/25
06:59 06:59 06:59
Intake Total 240 / 240 120 / 120
Output Total 400 / 400 1800 / 1800
Balance -160 / -160 -1680 / -1680
--- NOTE | 2025-03-13 17:45 | CM ---
Addendum entered by Connie Castillo 03/13/25 19:04:
Referral placed for [facility]. CM will connect with family and pt in the a.m.
OT eval not performed today
Original Note:
PT rec SNF. Need choices from family for SNF referrals. Family prefers [facility], Auth needed
Possible DC tomorrow
Plan: DC to SNF when stable
[2025-03-13] MEDS: DECADRON 3 MG IV (21:20)
[2025-03-13] MEDS: SENOKOT PO ×2 (21:21→21:37)
[2025-03-13] MEDS: PACERONE 200 MG PO (21:27)
[2025-03-14] VITALS (10 sets, daily range): BP systolic 107–153; BP diastolic 54–72; PULSE 67–71; O2SAT 93–95; BMI 16.0
[2025-03-14] MEDS: DUONEB 3 ML INH ×4 (07:36→20:02)
[2025-03-14 08:40] LABS: Hematocrit 37.0 % (37.0-47.0); Hemoglobin 12.3 g/dL (12.0-16.0)
[2025-03-14] MEDS: NICODERM TRANSDERMAL 7 MG TRANSDERM (09:18)
[2025-03-14] MEDS: PEPCID 20 MG IV (09:19)
[2025-03-14] MEDS: SENOKOT 17.2 MG PO ×2 (09:19→20:02)
[2025-03-14] MEDS: MIRALAX 17 GRAMS PO (09:19)
[2025-03-14] MEDS: ELIQUIS 2.5 MG PO ×2 (09:19→20:01)
[2025-03-14] MEDS: DECADRON 3 MG IV (09:19)
[2025-03-14] MEDS: PROTONIX 40 MG PO (09:20)
[2025-03-14] MEDS: LASIX 20 MG PO (09:20)
[2025-03-14] MEDS: CARDIZEM CD 120 MG PO (09:21)
[2025-03-14] MEDS: PACERONE 200 MG PO ×2 (09:21→20:01)
[2025-03-14] MEDS: NSS (PRESERVATIVE FREE) 8 ML IV (09:21)
[2025-03-14] MEDS: COZAAR 50 MG PO (09:21)
[2025-03-14] MEDS: VIBRAMYCIN 100 MG PO ×2 (09:41→20:01)
[2025-03-14] MEDS: ROCEPHIN 1000 MG IV (09:42)
[2025-03-14] MEDS: STERILE WATER FOR INJECTION 10 ML IV (09:42)
[2025-03-14 09:45] LABS: Blood Urea Nitrogen 32 mg/dl (7-17); Calcium 9.5 mg/dl (8.4-10.2); Carbon Dioxide 29 mmol/L (22-30); Chloride 104 mmol/L (98-107); Estimated Creatinine Clearance 23 ml/min; Glucose 113 mg/dl (70-99); Potassium 3.9 mmol/L (3.5-5.1); Sodium 136 mmol/L (135-145); eGFR 48.63
[2025-03-14] MEDS: ZOFRAN 4 MG IV (10:44)
--- NOTE | 2025-03-14 12:12 | W.PN.CARDCBS ---
Today's Communication / Plan
-
aroxysmal atrial tachyarrhythmias have improved over last 24 hrs, remains in sinus.
Reduce amiodarone to 200 mg daily next 24 hrs, at the time of d/c
Cont Diltiazem 120 mg daily.
[id number] score 5.
Dinesh initiated this admission, held 03/09-03/10/2025 due to hematuria, resumed 03/11/25, 2.5 mg BID based on age and wt
Hemoglobin stable.
She appears euvolemic with HFpEF
Weight down 10 lbs
Creatinine normal at 1.1.
Cont Lasix 20 mg p.o. daily
Resumed losartan 50 mg daily at lower dose
Will arrange outpt cardiac follow up.
Discussed with primary service
Please recall if needed
Impression / Plan
-
.
PCP: Dr. Kristal Flores
Cardiology: None prior to admission, initially seen by Dr Shantal Mercado
Impression:
She is admitted with abdominal pain, diarrhea
Newly diagnosed atrial flutter/atrial tachycardia 03/06/2025
Acute HF with preserved ejection fraction EF
Moderate to severe mitral regurgitation
Moderate to severe tricuspid regurgitation with increased PA pressures
Possible acute bronchitis
HTN
COPD
Active smoker�1 pack/day
Urinary retention
Echocardiogram 03/07/2025 finds normal left ventricular size and function with ejection fraction of 64%, normal right ventricular size and function. There is moderate to severe mitral regurgitation with posterior leaflet mitral valve prolapse,
severe tricuspid regurgitation with estimated pulmonary artery pressure of 61 mmHg.
Recommendations:
She initially presented with continued abdominal pain which has been problematic for 2 weeks to 1 month and multifactorial. She presented with shortness of breath and was found to be in atrial a flutter/tachycardia with rapid ventricular response.
In the emergency department she converted to sinus rhythm. She is now back in atrial flutter/atrial tachycardia.
On presentation she also had heart failure noted. Echocardiogram reviewed which revealed ejection fraction 64%. Moderate to severe possibly severe mitral regurgitation in the setting of volume overload. Severe TR with PA pressure 61 mmHg. She
continues to diurese on IV Lasix.
Paroxysmal atrial tachyarrhythmias have improved over last 24 hrs, remains in sinus.
Reduce amiodarone to 200 mg daily next 24 hrs, at the time of d/c
Cont Diltiazem 120 mg daily.
[id number] score 5.
Dinesh initiated this admission, held 03/09-03/10/2025 due to hematuria, resumed 03/11/25, 2.5 mg BID based on age and wt
Hemoglobin stable.
She appears euvolemic with HFpEF
Weight down 10 lbs
Creatinine normal at 1.1.
Cont Lasix 20 mg p.o. daily
Resumed losartan 50 mg daily at lower dose
Urinary retention and now hematuria resolved
Smoking cessation is recommended.
COPD followed by primary care provider.
Will arrange outpt cardiac follow up.
Discussed with primary service
Please recall if needed.
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
Subjective
Date of Service: March 14, 2025
Pt seen and examined. No complaints other than general weakness. No chest pain or shortness of breath.
Objective
Labs:
03/14/25 08:11
03/14/25 08:11
Labs
Hgb 12.3 g/dL (12.0-16.0) 03/14/25 08:11
Hct 37.0 % (37.0-47.0) 03/14/25 08:11
Plt Count 251 10^3/uL (130-400) 03/09/25 06:49
Sodium 136 mmol/L (135-145) 03/14/25 08:11
Potassium 3.9 mmol/L (3.5-5.1) 03/14/25 08:11
BUN 32 mg/dl (7-17) H 11/06/25 08:11
Creatinine 1.1 mg/dL (0.6-1.0) H 03/14/25 08:11
Glucose 113 mg/dl (70-99) H 03/14/25 08:11
Vital Signs and I&O:
Vital Signs
Temp Pulse Resp BP Pulse Ox
97.3 F 63 18 153/71 94
03/14/25 11:40 03/14/25 11:40 03/14/25 11:40 03/14/25 11:40 03/14/25 11:40
Vital Signs
Temp Pulse Resp BP Pulse Ox
97.3 F 63 18 153/71 94
03/14/25 11:40 03/14/25 11:40 03/14/25 11:40 03/14/25 11:40 03/14/25 11:40
Intake & Output
03/12/25 03/13/25 03/14/25 03/15/25
06:59 06:59 06:59 06:59
Intake Total 240 / 240 120 / 120 0 / 0
Output Total 400 / 400 1800 / 1800 1700 / 1700
Balance -160 / -160 -1680 / -1680 -1700 / -1700
Physical Exam
Physical Exam
General: No acute distress, AAOX3, frail appearing
Neck: Negative JVD
Heart: Regular, Negative S3 positive S1/S2, Negative S4, No murmur
Lungs: CTA b/l, negative wheezes/rales/rhonchi
Abd: Positive BS, NT/ND, neg rebound/rigidity/guarding
Ext: Negative cyanosis/clubbing/edema
Neuro: nonfocal
--- NOTE | 2025-03-14 14:26 | W.PN.HOSP.TC ---
Today's Communication/Plan
-
Change steroids to PO
Discharge planning
Case management to arrange
Voiding trial in rehab when pt is more ambulatory
Assessment / Plan
Assessment / Plan
89-year-old female with abdominal pain for the past 2 weeks, shortness of breath and tachycardia
CT A/P-no evidence of constipation bowel obstruction. Mild sigmoid diverticulosis without diverticulitis. No obstructive uropathy. No acute inflammatory process. Mild fatty liver. Small bilateral pleural effusions. Hiatal hernia. Third
spacing.
CVS: S1-S2 irregular, sm at apex
Chest: Decreased BS , CTA
Abdomen: Soft, NT / Bowel sounds present
Extremities: No edema
Echo-Left ventricular ejection fraction is normal with an ejection fraction of 64 %. RV size and function normal. Dense mitral valve calcification. MVP. Moderate to severe MR. Severe TR. PA pressure 61 mmHg
03/11/2025- chest [id number] vascular congestion and interstitial edema. Small bilateral pleural effusions and adjacent atelectasis.
# Atrial fibrillation with RVR-new onset
Cardizem drip at 2.5 mg changed to 30 Q6H, change to CD 120
Continue Eliquis
Afib -> converted to sinus rhythm -> A-fib-> now in SR again
Amiodarone started , dose to be reduced to 200 mg at discharge
TSH-normal
Troponin-normal
# CHF-acute HFpEF
Likely rate related
Echo as above
Continue Po lasix
Weight better .
# Acute kidney injury- improved
# Hematuria with urinary retention- Redd catheter placed and removed. Hematuria resolved. Redd placed again due to retention.
# Hyponatremia secondary to fluid retention-better. Also do not restart hydrochlorothiazide
# Acute hypoxic respiratory failure secondary to CHF and also COPD exacerbation and bronchitis. Wean oxygen as tolerated. ceftriaxone added . continue IV steroids, taper
# Hypertension-was on Losartan Hydrochlorothiazide as outpatient. Losartan restarted .
# Diverticulosis
# Constipation- Miralax and Senna
# Fatty liver per CT
# Hiatal hernia-Pepcid. Continue PPI now.
# Smoker-cessation counseling. Continue nicotine patch
# DVT prophylaxis-Eliquis
# DNR
PT OT
D/W Cardiology
D/W Case management
Part of this note was created using voice recognition system. Occasional wrong word or��sound alike� substitutions may have inadvertently occurred due to the inherent limitations of voice recognition software. If noted kindly bring it to my
attention for correction.
Anticipated Discharge: Within 24 hours
Subjective/Interval History
-
Date of Service: March 14, 2025
Objective Data
-
Labs:
Laboratory Results
03/14/25
08:11
Hgb 12.3
Hct 37.0
Sodium 136
Potassium 3.9
Chloride 104
Carbon Dioxide 29
BUN 32 H
Creatinine 1.1 H
Glucose 113 H
Calcium 9.5
Vital Signs:
Vital Signs
Temp Pulse Resp BP Pulse Ox
97.3 F 63 18 153/71 94
03/14/25 11:40 03/14/25 11:40 03/14/25 11:40 03/14/25 11:40 03/14/25 11:40
I&O
03/13/25 03/14/25 03/15/25
06:59 06:59 06:59
Intake Total 120 / 120 0 / 0
Output Total 1800 / 1800 1700 / 1700
Balance -1680 / -1680 -1700 / -1700
--- NOTE | 2025-03-14 14:52 | CM ---
Pt given PAc Data for SNF.
She will confer with her family for SNF picks.
She will need [employer] auth
PLAN Locate SNF obtain auth
--- NOTE | 2025-03-14 15:59 | CM ---
Spoke with patient in room .
She said she wanted to go to [facility] .Referral in care port.
Spoke with [facility] . Petrona said to call in am to check for bed availability.
Will need auth with [facility].
PLAN To SNf after auth
[2025-03-14] MEDS: MUCINEX 600 MG PO (20:01)
[2025-03-14] MEDS: ANESTHETIC LOZENGE 1 LOZENGE PO (22:17)
[2025-03-15 03:53] VITALS: BP 126/52
[2025-03-15 06:00] VITALS: BMI 15.1
[2025-03-15] MEDS: DUONEB 3 ML INH ×4 (07:21→19:56)
[2025-03-15 07:28] VITALS: BP 151/67
[2025-03-15] MEDS: VIBRAMYCIN 100 MG PO ×2 (08:56→20:37)
[2025-03-15] MEDS: PROTONIX 40 MG PO (08:56)
[2025-03-15] MEDS: MIRALAX 17 GRAMS PO (08:56)
[2025-03-15] MEDS: LASIX 20 MG PO (08:56)
[2025-03-15] MEDS: SENOKOT 17.2 MG PO (08:57)
[2025-03-15] MEDS: ELIQUIS 2.5 MG PO ×2 (08:57→20:37)
[2025-03-15] MEDS: PACERONE 200 MG PO ×2 (08:57→20:40)
[2025-03-15] MEDS: NICODERM TRANSDERMAL 7 MG TRANSDERM (08:57)
[2025-03-15] MEDS: MUCINEX 600 MG PO ×2 (08:57→20:37)
[2025-03-15] MEDS: DELTASONE 40 MG PO (08:57)
[2025-03-15] MEDS: CARDIZEM CD 120 MG PO (08:57)
[2025-03-15] MEDS: COZAAR 50 MG PO (08:57)
[2025-03-15] MEDS: ROCEPHIN 1000 MG IV (08:59)
[2025-03-15] MEDS: STERILE WATER FOR INJECTION 10 ML IV (08:59)
--- NOTE | 2025-03-15 09:56 | CM ---
Addendum entered by Anna Marie Fischer 03/16/25 10:11:
Patient has been medically cleared for discharge to [facility] for snf and rehab services. Transport scheduled for 1:00PM. Nursing Outside Upholsterer, Humphrey, at [facility] notified. Auth information provided. Son notified of transport time.
Addendum entered by Joselyn Hansen 03/15/25 17:15:
Pt approved for transfer to [facility]
Authorization [id number] for DOS 03/15-03/19/2025
Reviewer is Cassandra Seth
Fax#
Original Note:
Patient accepted at [facility]. Spoke daniel/ Petrona/director, has a bed available today for patient
called [facility] ([phone]) to initiate auth, spoke daniel/ Anthony. Clinical information requested to be faxed
Faxed clinicals to [phone]
Pending ref # [id number]
Petrona aware insurance auth may come back at the end of the day or tomorrow, therefore, a bed will be available tomorrow for patient if unable to admit today
Ambulance transport forms on chart
IMM reviewed, copy provided, copy on chart
[facility]
Report: [phone]

Plan: [facility] once auth is received
[2025-03-15 11:00] VITALS: BP 145/61
--- NOTE | 2025-03-15 12:06 | W.PN.HOSP.TC ---
Addendum entered and electronically signed by Arabella Flynn MD 03/15/25 14:05:
Patient has urine retention issues. Straight cath at the rehab. I also called urology office and schedule her an appointment for now with any further at 1 PM.
Addendum entered and electronically signed by Arabella Flynn MD 03/15/25 13:07:
Spoke to Son and updated.
Addendum entered and electronically signed by Arabella Flynn MD 03/15/25 12:14:
left a message for son
Original Note:
Today's Communication/Plan
-
Discharge
Assessment / Plan
Assessment / Plan
89-year-old female with abdominal pain for the past 2 weeks, shortness of breath and tachycardia
CT A/P-no evidence of constipation bowel obstruction. Mild sigmoid diverticulosis without diverticulitis. No obstructive uropathy. No acute inflammatory process. Mild fatty liver. Small bilateral pleural effusions. Hiatal hernia. Third
spacing.
CVS: S1-S2 irregular, sm at apex
Chest: Decreased BS , CTA
Abdomen: Soft, NT / Bowel sounds present
Extremities: No edema
Echo-Left ventricular ejection fraction is normal with an ejection fraction of 64 %. RV size and function normal. Dense mitral valve calcification. MVP. Moderate to severe MR. Severe TR. PA pressure 61 mmHg
03/11/2025- chest [id number] vascular congestion and interstitial edema. Small bilateral pleural effusions and adjacent atelectasis.
# Atrial fibrillation with RVR-new onset
Cardizem drip at 2.5 mg changed to 30 Q6H, change to CD 120
Continue Eliquis
Afib -> converted to sinus rhythm -> A-fib-> now in SR again
Amiodarone started , dose to be reduced to 200 mg at discharge
TSH-normal
Troponin-normal
# CHF-acute HFpEF
Likely rate related
Echo as above
Continue Po lasix
Weight better
# Acute kidney injury- improved
# Hematuria with urinary retention- Redd catheter placed and removed. Hematuria resolved. Redd placed again due to retention. Removed. Bladder scan .
# Hyponatremia secondary to fluid retention-better. Also do not restart hydrochlorothiazide
# Acute hypoxic respiratory failure secondary to CHF and also COPD exacerbation and bronchitis. Wean oxygen as tolerated. ceftriaxone added . continue IV steroids, taper
# Hypertension-was on Losartan Hydrochlorothiazide as outpatient. Losartan restarted .
# Diverticulosis
# Constipation- Miralax and Senna
# Fatty liver per CT
# Hiatal hernia-Pepcid. Continue PPI now.
# Smoker-cessation counseling. Continue nicotine patch
# DVT prophylaxis-Eliquis
# DNR
PT OT
D/W Cardiology
D/W Case management
D/W RN at bed side
Part of this note was created using voice recognition system. Occasional wrong word or��sound alike� substitutions may have inadvertently occurred due to the inherent limitations of voice recognition software. If noted kindly bring it to my
attention for correction.
Anticipated Discharge: Today
Subjective/Interval History
-
Date of Service: March 15, 2025
Objective Data
-
Vital Signs:
Vital Signs
Temp Pulse Resp BP Pulse Ox
98.2 F 72 18 145/61 95
03/15/25 11:00 03/15/25 11:34 03/15/25 11:34 03/15/25 11:00 03/15/25 12:01
I&O
03/14/25 03/15/25 03/16/25
06:59 06:59 06:59
Intake Total 0 / 0 360 / 360
Output Total 1700 / 1700 1050 / 1050
Balance -1700 / -1700 -690 / -690
[2025-03-15] MEDS: FLUZONE HIGH-DOSE 2025-26 0.5 ML IM (12:30)
[2025-03-15] MEDS: PREVNAR 20 0.5 ML IM (12:30)
[2025-03-15 15:23] VITALS: BP 143/61
[2025-03-15] MEDS: SENOKOT PO (20:37)
[2025-03-15 23:39] VITALS: BP 146/69
[2025-03-16 03:55] VITALS: BP 145/73
[2025-03-16 06:00] VITALS: BMI 13.8
[2025-03-16 08:10] VITALS: BP 153/61
[2025-03-16] MEDS: DUONEB 3 ML INH ×2 (08:13→11:32)
[2025-03-16] MEDS: PROTONIX 40 MG PO (09:25)
[2025-03-16] MEDS: MUCINEX 600 MG PO (09:25)
[2025-03-16] MEDS: COZAAR 50 MG PO (09:26)
[2025-03-16] MEDS: SENOKOT 17.2 MG PO (09:26)
[2025-03-16] MEDS: PACERONE 200 MG PO (09:26)
[2025-03-16] MEDS: ELIQUIS 2.5 MG PO (09:26)
[2025-03-16] MEDS: VIBRAMYCIN 100 MG PO (09:26)
[2025-03-16] MEDS: CARDIZEM CD 120 MG PO (09:26)
[2025-03-16] MEDS: DELTASONE 40 MG PO (09:27)
[2025-03-16] MEDS: PEPCID 20 MG IV (09:27)
[2025-03-16] MEDS: LASIX 20 MG PO (09:27)
[2025-03-16] MEDS: MIRALAX 17 GRAMS PO (09:28)
[2025-03-16] MEDS: NSS (PRESERVATIVE FREE) 8 ML IV (09:28)
[2025-03-16] MEDS: NICODERM TRANSDERMAL 7 MG TRANSDERM (09:29)
[2025-03-16] MEDS: ROCEPHIN 1000 MG IV (09:30)
[2025-03-16] MEDS: STERILE WATER FOR INJECTION 10 ML IV (09:30)
[2025-03-16 11:18] VITALS: BP 154/72
[2025-03-16] MEDS: ATARAX 10 MG PO (12:42)
--- NOTE | 2025-03-16 13:04 | W.PN.HOSP.TC ---
Today's Communication/Plan
-
discharge
Assessment / Plan
Assessment / Plan
89-year-old female with abdominal pain for the past 2 weeks, shortness of breath and tachycardia
CT A/P-no evidence of constipation bowel obstruction. Mild sigmoid diverticulosis without diverticulitis. No obstructive uropathy. No acute inflammatory process. Mild fatty liver. Small bilateral pleural effusions. Hiatal hernia. Third
spacing.
feels slightly anxious about the rehab
No SOB
CVS: S1-S2 irregular, sm at apex
Chest: Decreased BS , CTA
Abdomen: Soft, NT / Bowel sounds present
Extremities: No edema
Echo-Left ventricular ejection fraction is normal with an ejection fraction of 64 %. RV size and function normal. Dense mitral valve calcification. MVP. Moderate to severe MR. Severe TR. PA pressure 61 mmHg
03/11/2025- chest [id number] vascular congestion and interstitial edema. Small bilateral pleural effusions and adjacent atelectasis.
# Atrial fibrillation with RVR-new onset
Cardizem drip at 2.5 mg changed to 30 Q6H, change to CD 120
Continue Eliquis
Afib -> converted to sinus rhythm -> A-fib-> now in SR again
Amiodarone started , dose to be reduced to 200 mg at discharge
TSH-normal
Troponin-normal
# CHF-acute HFpEF
Likely rate related
Echo as above
Continue Po lasix
Weight better
# Acute kidney injury- improved
# Hematuria with urinary retention- Redd catheter placed and removed. Hematuria resolved. Redd placed again due to retention. Removed. Bladder scan at rehab also .
# Hyponatremia secondary to fluid retention-better. Also do not restart hydrochlorothiazide
# Acute hypoxic respiratory failure secondary to CHF and also COPD exacerbation and bronchitis. Wean oxygen as tolerated. ceftriaxone added . continue IV steroids, taper
# Hypertension-was on Losartan Hydrochlorothiazide as outpatient. Losartan restarted .
# Diverticulosis
# Constipation- Miralax and Senna
# Fatty liver per CT
# Hiatal hernia-Pepcid. Continue PPI now.
# Smoker-cessation counseling. Continue nicotine patch
# DVT prophylaxis-Eliquis
# DNR
PT OT
D/W Cardiology
D/W Case management
D/W RN at bed side
\\
More than 30 minutes spent in discharge including
Final examination of the patient
Summarizing hospital stay
Instructions for continuing care to all relevant caregivers
Preparation of discharge records, prescriptions, and referral forms
Part of this note was created using voice recognition system. Occasional wrong word or��sound alike� substitutions may have inadvertently occurred due to the inherent limitations of voice recognition software. If noted kindly bring it to my
attention for correction.
Anticipated Discharge: Today
Subjective/Interval History
-
Date of Service: March 16, 2025
Objective Data
-
Vital Signs:
Vital Signs
Temp Pulse Resp BP Pulse Ox
98.1 F 67 16 154/72 96
03/16/25 11:18 03/16/25 11:34 03/16/25 11:34 03/16/25 11:18 03/16/25 11:18
I&O
03/15/25 03/16/25 03/17/25
06:59 06:59 06:59
Intake Total 360 / 360 700 / 700
Output Total 1050 / 1050 1400 / 1400
Balance -690 / -690 -700 / -700
--- NOTE | 2025-03-16 15:10 | W.DS.TRANS ---
Addendum entered and electronically signed by Arabella Flynn MD 03/16/25 15:13:
Dictation- [id number]
Original Note:
DC Summary - Treatment Technician
-
Discharge Instructions:
Discharge Diagnosis/Procedures Atrial fibrillation with RVR
Acute HFpEF
Acute kidney injury
Hematuria with urinary retention
Hyponatremia
Acute hypoxic respiratory failure
COPD exacerbation acute bronchitis
Hypertension
Diverticulosis
Constipation
Fatty liver per CT
Hiatal hernia
Severe protein calorie malnutrition
Diet 2 Gram Sodium,Restrict fluids to 64 oz
Additional Diets Ensure chocolate twice daily
Activity As tolerated,With assistance
Driving Restrictions No driving
Blood Work BMP- 2-3 days. Thyroid function tests 6 weeks.
Others Tests Chest X ray 6 weeks and in 6 months
Other Services PT,OT
Specialty Instructions Weigh Daily
Instructions:
Stand-Alone Forms:
Changes to Home Medications: Yes
Discharge Medications:
DC Medications w/original date entered in [employer]
lidocaine 5 % topical patch 1 patch topical DAILYPRN PRN lower back 03/06/25
peppermint oil 90 mg capsule,delayed,extended release (IBgard) 90 mg PO DAILYPRN PRN stoamch issuses 03/06/25
acetaminophen 325 mg tablet 650 mg (2 x 325 mg) PO Q6HPRN PRN mild pain/ fever>100.5F #0 tabs 03/15/25
amiodarone 200 mg tablet (Pacerone) 200 mg PO DAILY Arrhythmia #0 tabs 03/15/25
apixaban 2.5 mg tablet (Eliquis) 2.5 mg PO BID Blood clot prevention/tx #0 tabs 03/15/25
cefuroxime axetil 250 mg tablet 250 mg PO BID Lung/breathing issues #6 tabs 03/15/25
diltiazem HCl 120 mg capsule,extended release 24 hr 120 mg PO DAILY Heart disease/condition #0 caps 03/15/25
furosemide 20 mg tablet 20 mg PO DAILY Fluid retention/Swelling #0 tabs 03/15/25
guaifenesin 600 mg tablet, extended release 12 hr 600 mg PO Q12 Lung/breathing issues #0 tabs 03/15/25
ipratropium 0.5 mg-albuterol 3 mg (2.5 mg base)/3 mL nebulization soln 3 ml inhalation R Q4HPRN PRN sob #0 mL 03/15/25
ipratropium 0.5 mg-albuterol 3 mg (2.5 mg base)/3 mL nebulization soln 3 ml inhalation R QID Lung/breathing issues #0 mL 03/15/25
losartan 50 mg tablet 50 mg PO DAILY Blood pressure #0 tabs 03/15/25
nicotine 7 mg/24 hr daily transdermal patch 7 mg transdermal DAILY Smoking cessation #0 ea 03/15/25
oxycodone 5 mg tablet 5 mg PO BIDPRN PRN severe pain #5 tabs 03/15/25
pantoprazole 40 mg tablet,delayed release 40 mg PO DAILY Gastrointestinal issue #0 tabs 03/15/25
polyethylene glycol 3350 17 gram oral powder packet 17 g PO DAILY Constipation #0 ea 03/15/25
prednisone 10 mg tablet See Rx Instructions .Route .COMPLEX Lung/breathing issues #30 tabs 03/15/25
sennosides 8.6 mg tablet (Hina-ame) 17.2 mg (2 x 8.6 mg) PO BID Constipation #0 tabs 03/15/25
Home Medication Changes
new
amiodarone 200 mg tablet (Pacerone) 200 mg PO DAILY Arrhythmia #0 tabs 03/15/25
apixaban 2.5 mg tablet (Eliquis) 2.5 mg PO BID Blood clot prevention/tx #0 tabs 03/15/25
cefuroxime axetil 250 mg tablet 250 mg PO BID Lung/breathing issues #6 tabs 03/15/25
diltiazem HCl 120 mg capsule,extended release 24 hr 120 mg PO DAILY Heart disease/condition #0 caps 03/15/25
furosemide 20 mg tablet 20 mg PO DAILY Fluid retention/Swelling #0 tabs 11/07/25
guaifenesin 600 mg tablet, extended release 12 hr 600 mg PO Q12 Lung/breathing issues #0 tabs 03/15/25
ipratropium 0.5 mg-albuterol 3 mg (2.5 mg base)/3 mL nebulization soln 3 ml inhalation R Q4HPRN PRN sob #0 mL 03/15/25
ipratropium 0.5 mg-albuterol 3 mg (2.5 mg base)/3 mL nebulization soln 3 ml inhalation R QID Lung/breathing issues #0 mL 03/15/25
losartan 50 mg tablet 50 mg PO DAILY Blood pressure #0 tabs 03/15/25
nicotine 7 mg/24 hr daily transdermal patch 7 mg transdermal DAILY Smoking cessation #0 ea 03/15/25
oxycodone 5 mg tablet 5 mg PO BIDPRN PRN severe pain #5 tabs 03/15/25
pantoprazole 40 mg tablet,delayed release 40 mg PO DAILY Gastrointestinal issue #0 tabs 03/15/25
polyethylene glycol 3350 17 gram oral powder packet 17 g PO DAILY Constipation #0 ea 03/15/25
prednisone 10 mg tablet See Rx Instructions .Route .COMPLEX Lung/breathing issues #30 tabs 03/15/25
sennosides 8.6 mg tablet (Hina-ame) 17.2 mg (2 x 8.6 mg) PO BID Constipation #0 tabs 03/15/25
Pending Results: No
== END 2025-03-16 12:56 | DRG 308 ==
LOC: 4 EAST ACU 22:39
PROVIDERS: Internal Medicine Cardiovascular Disease; Nurse Practitioner Family; ADMITTING PHYSICIAN Internal Medicine; ATTENDING PHYSICIAN Hospitalist; EMERGENCY PHYSICIAN Emergency Medicine; FAMILY PHYSICIAN Family Medicine; OTHER PHYSICIAN Internal Medicine Cardiovascular Disease
PROC: 3E02340 Introduction of Influenza Vaccine into Muscle, Percutaneous Approach (ICD-10-PCS; 2025-03-15)
DX: I48.0 Paroxysmal atrial fibrillation (principal); E43 Unspecified severe protein-calorie malnutrition; I50.31 Acute diastolic (congestive) heart failure; J96.01 Acute respiratory failure with hypoxia; N17.9 Acute kidney failure, unspecified; J44.1 Chronic obstructive pulmonary disease with (acute) exacerbation; J44.0 Chronic obstructive pulmonary disease with (acute) lower respiratory infection; Z68.1 Body mass index [BMI] 19.9 or less, adult; E87.1 Hypo-osmolality and hyponatremia; I11.0 Hypertensive heart disease with heart failure; J20.9 Acute bronchitis, unspecified; K57.30 Diverticulosis of large intestine without perforation or abscess without bleeding; K59.00 Constipation, unspecified; K76.0 Fatty (change of) liver, not elsewhere classified; K44.9 Diaphragmatic hernia without obstruction or gangrene; R33.9 Retention of urine, unspecified; F41.9 Anxiety disorder, unspecified; R31.9 Hematuria, unspecified; Z88.0 Allergy status to penicillin; Z79.899 Other long term (current) drug therapy; Z66 Do not resuscitate; F17.210 Nicotine dependence, cigarettes, uncomplicated; I47.10 Supraventricular tachycardia, unspecified; Z11.52 Encounter for screening for COVID-19; Z23 Encounter for immunization
CPT/HCPCS: 71045; 71046; 74177; 80048; 80053; 81003; 81015; 82248; 83690; 83735; 83880; 84145; 84443; 84484; 85014; 85018; 85025; 85027; 87077; 87086; 87186; 87502; 87811; 90662; 90677; 92610; 93005; 93306; 94640; 97116; 97163; 97167; 97530; 99406; G0008; G0009; J0153; Q9967

== ENCOUNTER → 2025-03-18 13:05 | Outpatient (REF) | payer OTHER, MEDICARE, SELFPAY ==
[2025-03-18 13:25] LABS: Hematocrit 44.8 % (37.0-47.0); Hemoglobin 13.9 g/dL (12.0-16.0); Mean Corp Hgb Conc. 31.0 g/dL (33.0-37.0); Mean Corpuscular Volume 92.9 fL (81.0-99.0); Nucleated Red Blood Cells % 0.2 %; Platelet Count 283 10^3/uL (130-400); Red Cell Dist. Width 17.2 % (11.5-14.5)
[2025-03-18 13:32] LABS: ALT (SGPT) 33 U/L (0-35); AST (SGOT) 21 U/L (14-36); Albumin 3.6 g/dl (3.5-5.0); Alkaline Phosphatase 104 U/L (38-126); Blood Urea Nitrogen 46 mg/dl (7-17); Calcium 9.3 mg/dl (8.4-10.2); Carbon Dioxide 30 mmol/L (22-30); Chloride 101 mmol/L (98-107); Glucose 84 mg/dl (70-99); Potassium 4.0 mmol/L (3.5-5.1); Sodium 137 mmol/L (135-145); Total Protein 6.5 g/dl (6.3-8.2); eGFR 48.63
== END ==
LOC: OLABP 13:05
PROVIDERS: ATTENDING PHYSICIAN Family Medicine
DX: E87.6 Hypokalemia (principal); N17.9 Acute kidney failure, unspecified; J40 Bronchitis, not specified as acute or chronic; E87.1 Hypo-osmolality and hyponatremia; E44.0 Moderate protein-calorie malnutrition; I48.0 Paroxysmal atrial fibrillation; J98.4 Other disorders of lung; K57.90 Diverticulosis of intestine, part unspecified, without perforation or abscess without bleeding; K76.0 Fatty (change of) liver, not elsewhere classified; J96.01 Acute respiratory failure with hypoxia; J44.89 Other specified chronic obstructive pulmonary disease; I50.9 Heart failure, unspecified; J18.9 Pneumonia, unspecified organism
CPT/HCPCS: 36415; 80053; 85025

== ENCOUNTER → 2025-03-26 11:10 | Outpatient (REF) | payer OTHER, MEDICARE, SELFPAY ==
[2025-03-26 13:18] LABS: Blood Urea Nitrogen 31 mg/dl (7-17); Calcium 8.6 mg/dl (8.4-10.2); Carbon Dioxide 31 mmol/L (22-30); Chloride 100 mmol/L (98-107); Glucose 67 mg/dl (70-99); Potassium 3.3 mmol/L (3.5-5.1); Sodium 138 mmol/L (135-145); eGFR > 60.00
== END ==
LOC: OLABP 11:10
PROVIDERS: ATTENDING PHYSICIAN Family Medicine
DX: J96.01 Acute respiratory failure with hypoxia (principal); J44.89 Other specified chronic obstructive pulmonary disease; I50.9 Heart failure, unspecified; J18.9 Pneumonia, unspecified organism; J40 Bronchitis, not specified as acute or chronic; N17.9 Acute kidney failure, unspecified; E87.1 Hypo-osmolality and hyponatremia; E44.0 Moderate protein-calorie malnutrition; E78.5 Hyperlipidemia, unspecified; E87.6 Hypokalemia; I48.0 Paroxysmal atrial fibrillation; J98.4 Other disorders of lung; K57.90 Diverticulosis of intestine, part unspecified, without perforation or abscess without bleeding; K76.0 Fatty (change of) liver, not elsewhere classified
CPT/HCPCS: 36415; 80048

== ENCOUNTER → 2025-03-27 10:11 | Outpatient (REF) | payer OTHER, MEDICARE, SELFPAY ==
[2025-03-27 11:02] LABS: Blood Urea Nitrogen 28 mg/dl (7-17); Calcium 8.4 mg/dl (8.4-10.2); Carbon Dioxide 30 mmol/L (22-30); Chloride 103 mmol/L (98-107); Glucose 77 mg/dl (70-99); Potassium 3.0 mmol/L (3.5-5.1); Sodium 138 mmol/L (135-145); eGFR > 60.00
== END ==
LOC: OLABP 10:11
PROVIDERS: ATTENDING PHYSICIAN Family Medicine
DX: E44.0 Moderate protein-calorie malnutrition (principal); E78.5 Hyperlipidemia, unspecified; K76.0 Fatty (change of) liver, not elsewhere classified; K57.90 Diverticulosis of intestine, part unspecified, without perforation or abscess without bleeding; J44.89 Other specified chronic obstructive pulmonary disease; J96.01 Acute respiratory failure with hypoxia
CPT/HCPCS: 36415; 80048

== ENCOUNTER → 2025-03-28 11:01 | Outpatient (REF) | payer OTHER, MEDICARE, SELFPAY | LOC: OLABP 11:01 | PROVIDERS: ATTENDING PHYSICIAN Family Medicine | DX: J96.01 Acute respiratory failure with hypoxia (principal); J44.89 Other specified chronic obstructive pulmonary disease; I50.9 Heart failure, unspecified; J18.9 Pneumonia, unspecified organism; N17.9 Acute kidney failure, unspecified; E87.1 Hypo-osmolality and hyponatremia; E44.0 Moderate protein-calorie malnutrition; E78.5 Hyperlipidemia, unspecified; E87.6 Hypokalemia; I48.0 Paroxysmal atrial fibrillation; J98.4 Other disorders of lung; K57.90 Diverticulosis of intestine, part unspecified, without perforation or abscess without bleeding; K76.0 Fatty (change of) liver, not elsewhere classified | CPT/HCPCS: 36415 ==

== ENCOUNTER → 2025-03-29 11:10 | Outpatient (REF) | payer OTHER, MEDICARE, SELFPAY ==
[2025-03-29 12:21] LABS: Blood Urea Nitrogen 27 mg/dl (7-17); Calcium 8.5 mg/dl (8.4-10.2); Carbon Dioxide 24 mmol/L (22-30); Chloride 105 mmol/L (98-107); Glucose 97 mg/dl (70-99); Potassium 3.8 mmol/L (3.5-5.1); Sodium 135 mmol/L (135-145); eGFR > 60.00
== END ==
LOC: OLABP 11:10
PROVIDERS: ATTENDING PHYSICIAN Family Medicine
DX: J96.01 Acute respiratory failure with hypoxia (principal); J44.89 Other specified chronic obstructive pulmonary disease; J18.9 Pneumonia, unspecified organism; J40 Bronchitis, not specified as acute or chronic; I50.9 Heart failure, unspecified; N17.9 Acute kidney failure, unspecified; E87.1 Hypo-osmolality and hyponatremia; E44.0 Moderate protein-calorie malnutrition; E78.5 Hyperlipidemia, unspecified; E87.6 Hypokalemia; I48.0 Paroxysmal atrial fibrillation; J98.4 Other disorders of lung; K57.90 Diverticulosis of intestine, part unspecified, without perforation or abscess without bleeding; K76.0 Fatty (change of) liver, not elsewhere classified
CPT/HCPCS: 36415; 80048

== ENCOUNTER 2025-04-01 19:17 | Inpatient (IN) | payer MEDICARE, SELFPAY ==
[2025-04-01] VITALS (11 sets, daily range): BP systolic 89–126; BP diastolic 49–89; BMI 14.9; BMI 14.4
--- NOTE | 2025-04-01 14:51 | ED.GENMED ---
History of Present Illness
General
Chief Complaint: Heart Rate Problem
Source: patient
Exam Limitations: none
Time Seen by Provider: 04/01/25 14:39
Nursing documentation reviewed up to this point in time: agreed with
History of Present Illness
History of Present Illness:
Note:
CHIEF COMPLAINT(S)
Difficulty breathing, fatigue
HISTORY OF PRESENT ILLNESS
The patient is an 89-year-old female with a history of atrial flutter, atrial fibrillation, and chronic obstructive pulmonary disease (COPD). She presents with ongoing difficulty breathing and fatigue. She reports feeling constantly exhausted and
has experienced shortness of breath though this has not persisted. Currently, she reports difficulty breathing. The patient is known to be on anticoagulation therapy with Eliquis and has been experiencing fluctuations between atrial flutter and
atrial fibrillation, which appear to be impacting her respiratory status. A notable episode of low blood pressure was identified. It was discussed that her COPD might be exacerbating her cardiac symptoms. The treatment plan includes hospitalization
for monitoring, initiation of fluid therapy, a chest x-ray, laboratory work, breathing treatments, and steroid therapy.
CHRONIC MEDICAL CONDITIONS SIGNIFICANTLY AFFECTING CARE
- Atrial flutter
- Atrial fibrillation
- Chronic obstructive pulmonary disease (COPD)
MEDICATIONS
- Eliquis (apixaban)
PHYSICAL EXAM
General: Alert, no acute distress.
Skin: Warm, dry.
Head: Normocephalic, atraumatic.
Neck: Supple, trachea midline.
Eye Ears, nose, mouth and throat: Oral mucosa moist.
Cardiovascular: Normal peripheral perfusion, No edema.
Respiratory: Respirations are non-labored.
Gastrointestinal: Abdomen nondistended
Back: Normal range of motion, Normal alignment.
Musculoskeletal: Normal ROM, normal strength.
Neurological: Alert and oriented to person, place, time, and situation, No focal neurological deficit observed.
Psychiatric: Cooperative, appropriate mood & affect.
PROBLEM LIST
Acute Problems:
- Difficulty breathing
- Fatigue
- Atrial flutter/atrial fibrillation
- Low blood pressure
- COPD exacerbation
PLAN
1. Hospitalization for monitoring of cardiac and respiratory status.
2. Initiate fluid therapy to address low blood pressure.
3. Perform a chest x-ray.
4. Obtain laboratory tests.
5. Administer breathing treatments.
6. Start steroid therapy to manage COPD and associated symptoms.
7. Review current medication list from her rehab records for any changes.
DIFFERENTIAL DIAGNOSIS
The Differential Diagnosis includes, in no particular order and is not limited to:
1. COPD exacerbation
2. Atrial fibrillation with rapid ventricular response
3. Congestive heart failure
4. Pneumonia
5. Pulmonary embolism
6. Myocardial infarction
7. Heart failure with preserved ejection fraction
8. Hypertensive crisis
9. Anxiety disorder
10. Anemia
EKG
My independent EKG interpretation is:
- Time of EKG: Not provided
- Rhythm: Atrial flutter
- Heart rate: 125 bpm
- King: Normal
- Notable intervals: Not provided
- Abnormalities: Not provided
Disposition:
SUMMARY OF ENCOUNTER
The patient, an 89-year-old female with a known history of atrial flutter, atrial fibrillation, and chronic obstructive pulmonary disease (COPD), presented to the emergency department with complaints of difficulty breathing and fatigue. Examination
and history suggested an exacerbation of her COPD, possibly complicated by atrial fibrillation. She appeared hypovolemic, which contributed to a low blood pressure episode. The patients atrial flutter and fibrillation have been alternating,
affecting her breathing. In the emergency department, efforts were focused on treating the COPD exacerbation and stabilizing her cardiovascular status.
DISPOSITION
Admit.
ASSESSMENT
The patient is experiencing an exacerbation of COPD alongside atrial fibrillation with a potential volume depletion.
EMERGENCY TREATMENTS ADMINISTERED
The patient received nebulized albuterol and ipratropium (DuoNeb) to assist with breathing difficulties, and dexamethasone (Decadron) to reduce airway inflammation. Intravenous fluids were also administered to address hypovolemia.
MANAGEMENT OF THE PATIENTS CARE WAS DISCUSSED WITH
Discussed with hospitalist regarding admission and ongoing management of the patients care.
PLAN
The plan includes admission to the hospital for monitoring of her respiratory and cardiac status. Continuation of bronchodilator therapy and steroids to manage COPD symptoms, fluid management to address hypovolemia, and monitoring and treatment of
atrial fibrillation as needed. Further diagnostic work, including imaging and lab tests, to assess the extent of COPD exacerbation and any cardiac implications.
MEDICATION RECONCILIATION
- Nebulized albuterol and ipratropium (DuoNeb) administered.
- Dexamethasone (Decadron) administered.
- Intravenous fluids administered.
MEDICAL DECISION MAKING
1. Number and Complexity of Problems Addressed:
Chronic conditions affecting care include atrial flutter, atrial fibrillation, and COPD. Differential diagnosis includes COPD exacerbation, atrial fibrillation with rapid ventricular response, congestive heart failure, pneumonia, pulmonary embolism,
myocardial infarction, heart failure with preserved ejection fraction, hypertensive crisis, anxiety disorder, and anemia.
2. Data:
- Category 1: Lab tests ordered.
- Category 2: None.
- Category 3: Discussed management with hospitalist.
3. Risk:
The decision was made for hospitalization due to the complexity and risk associated with the patients COPD exacerbation and cardiac condition, considering severe respiratory and cardiac symptoms and underlying comorbidities.
DIAGNOSIS
- Chronic obstructive pulmonary disease exacerbation (J44.1)
- Atrial fibrillation (I48.91)
- Hypovolemia (E86.0)
Past History
Past History
ED Past Medical History: HTN
Social History
Tobacco: Smoker
Alcohol: None
Drug: None
Living: with family
Phy Exam
Physical Exam
Physical Exam:
.
Course
Orders/Labs/Results
Orders:
Orders
04/01/25 14:05
EKG [Electrocardiogram (*1)] Urgent
Reason for Study: Atrial Fibrillation
EKG- Treatment ONCE
04/01/25 14:35
Complete Blood Count/With Diff Urgent
NT-proBNP Urgent
Troponin I Urgent
04/01/25 14:44
Venous Blood Gas Urgent
%Oxygen/Room Air: room air
04/01/25 14:50
0.9% Sodium Chloride 500 ml [Nss] 500 ml IV BOLUS
04/01/25 14:52
Ipratropium/Albuterol Sulfate [Duoneb] 3 ml INH R NOW STA
04/01/25 14:54
CR Chest Portable - 1 View Urgent
Comment:
Reason For Exam: short of breath
Reason Study Needs to be Portable: Patient Unstable
04/01/25 15:29
Comprehensive Metabolic Panel Urgent
04/01/25 16:19
Dexamethasone Sod Phosphate [Decadron] 10 mg IV NOW STA
Ipratropium/Albuterol Sulfate [Duoneb] 3 ml INH R NOW STA
Abnormal Lab Results
04/01/25 04/01/25 04/01/25
14:35 14:44 15:29
RDW 17.5 H %
(11.5-14.5)
Abs Immat Gran (auto) 0.1 H 10^3/uL
(0-0.05)
Absolute Neuts (auto) 7.7 H 10^3/uL
(1.4-6.5)
Absolute Lymphs (auto) 1.1 L 10^3/uL
(1.2-3.4)
Immature Gran % 1.4 H %
(0-0.5)
Neutrophils % 80.1 H %
(42.2-75.2)
Lymphocytes % 11.5 L %
(20.5-51.1)
VBG HCO3 27.3 H mmol/L
(22-27)
Potassium 3.4 L mmol/L
(3.5-5.1)
BUN 22 H mg/dl
(7-17)
Glucose 100 H mg/dl
(70-99)
Calcium 8.2 L mg/dl
(8.4-10.2)
Total Protein 5.5 L g/dl
(6.3-8.2)
Albumin 2.9 L g/dl
(3.5-5.0)
04/01/25 14:35
04/01/25 15:29
Vital Signs
Initial and Last Documented VS:
Initial Vital Signs
Temp Pulse Resp BP Pulse Ox
98.1 F 52 18 89/49 96
04/01/25 14:14 04/01/25 14:14 04/01/25 14:14 04/01/25 14:14 04/01/25 14:14
Last Documented Vital Signs
Temp Pulse Resp BP Pulse Ox
98.1 F 109 25 126/81 96
04/01/25 14:14 04/01/25 16:00 04/01/25 16:00 04/01/25 16:00 04/01/25 14:52
*Pulse Oximetry
SaO2: 96
Oxygen Mode of Delivery: Room air
Patient hypoxic: no
*Critical Care Note
Total Time (30-74mins, 75-104mins- exclusive of procedures): Not Applicable
ED Attending Note
-
Portions of this chart may have been created with voice recognition software.� Occasional wrong word or��sound alike� substitutions may have occurred due to the inherent limitations of voice recognition software.
Discharge Plan
Departure
Patient Disposition: Admit
Date of Disposition: 04/01/25
Time of Disposition: 16:20
Admit to: IMU
Presentation/result/management discussed w/ accepting MD/DO: Hospitalist
Patient with high blood pressure during this ER visit?: Yes
Condition: Fair
Discharge Problem:
Acute exacerbation of chronic obstructive pulmonary disease, Atrial fibrillation with RVR
Prescriptions:
No Action
lidocaine 5 % Adhesive Patch,Medicated
1 patch TOPICAL DAILYPRN PRN (Reason: lower back)
IBgard 90 mg Capsule,Delayed,Extend.Release
90 mg PO DAILYPRN PRN (Reason: stoamch issuses)
losartan 50 mg Tablet
50 mg PO DAILY Qty: 0 0RF
sennosides [Hina-ame] 8.6 mg Tablet
17.2 mg PO BID Qty: 0 0RF
acetaminophen 325 mg Tablet
650 mg PO Q6HPRN PRN (Reason: mild pain/ fever>100.5F) Qty: 0 0RF
ipratropium-albuterol 0.5 mg-3 mg(2.5 mg base)/3 mL Solution For Nebulization
3 ml inhalation R QID Qty: 0 0RF
ipratropium-albuterol 0.5 mg-3 mg(2.5 mg base)/3 mL Solution For Nebulization
3 ml inhalation R Q4HPRN PRN (Reason: sob) Qty: 0 0RF
polyethylene glycol 3350 17 gram Powder In Packet
17 g PO DAILY Qty: 0 0RF
amiodarone [Pacerone] 200 mg Tablet
200 mg PO DAILY Qty: 0 0RF
pantoprazole 40 mg Tablet,Delayed Release (Dr/Ec)
40 mg PO DAILY Qty: 0 0RF
diltiazem HCl 120 mg Capsule,Extended Release 24hr
120 mg PO DAILY Qty: 0 0RF
furosemide 20 mg Tablet
20 mg PO DAILY Qty: 0 0RF
nicotine 7 mg/24 hr Patch 24 Hour
7 mg transdermal DAILY Qty: 0 0RF
oxycodone 5 mg Tablet
5 mg PO BIDPRN PRN (Reason: severe pain) Qty: 5 0RF
Eliquis 2.5 mg Tablet
2.5 mg PO BID Qty: 0 0RF
guaifenesin 600 mg Tablet Extended Release 12hr
600 mg PO Q12 Qty: 0 0RF
cefuroxime axetil 250 mg tablet
250 mg PO BID Qty: 6 0RF
prednisone 10 mg Tablet
See Rx Instructions .ROUTE .COMPLEX Qty: 30 0RF
Rx Instructions:
Take By Mouth:
40 mg daily x2 days, 30 mg daily x2 days,
20 mg daily x3 days, 10 mg daily x3 days.
Referrals:
Kristal Flores DO [Family Provider, Family Practice]
Interventions
Interventions:
*Risk Screen - Suicide Last Done: 04/01/25 14:14
*General Assessment Last Done: 04/01/25 14:14
*Neglect/Abuse Screening Last Done: 04/01/25 14:14
ED- Cardiac Assessment Last Done: 04/01/25 14:30
ED- Pulmonary Assessment Last Done: 04/01/25 14:30
Discharge Date and Time
Print Language: LIBYAN
[2025-04-01] MEDS: DUONEB 3 ML INH ×2 (14:55→16:34)
[2025-04-01 14:56] LABS: Venous Blood Gas B.E. 2.0 mmol/L (-4 to +4); Venous Blood Gas O2 Sat % 64.8 %
[2025-04-01 14:58] LABS: Hematocrit 39.8 % (37.0-47.0); Hemoglobin 13.4 g/dL (12.0-16.0); Mean Corp Hgb Conc. 33.7 g/dL (33.0-37.0); Mean Corpuscular Volume 86.9 fL (81.0-99.0); Nucleated Red Blood Cells % 0 %; Platelet Count 240 10^3/uL (130-400); Red Cell Dist. Width 17.5 % (11.5-14.5)
[2025-04-01] MEDS: NSS 500 IV (14:58)
[2025-04-01 15:29] LABS: Troponin I 0.028 ng/ml
[2025-04-01 16:03] LABS: ALT (SGPT) 22 U/L (0-35); AST (SGOT) 19 U/L (14-36); Albumin 2.9 g/dl (3.5-5.0); Alkaline Phosphatase 98 U/L (38-126); Blood Urea Nitrogen 22 mg/dl (7-17); Calcium 8.2 mg/dl (8.4-10.2); Carbon Dioxide 27 mmol/L (22-30); Chloride 104 mmol/L (98-107); Estimated Creatinine Clearance 25 ml/min; Glucose 100 mg/dl (70-99); Potassium 3.4 mmol/L (3.5-5.1); Sodium 135 mmol/L (135-145); Total Protein 5.5 g/dl (6.3-8.2); eGFR > 60.00
[2025-04-01] MEDS: DECADRON 10 MG IV (16:31)
--- NOTE | 2025-04-01 17:43 | W.PN.UPDATE ---
Update Note
Progress Note Update
Attending�addendum:
I saw and evaluated the patient independently. I reviewed and discussed the resident�s note and agree with findings and plan as documented in the resident�s note.� patient seen and examined at bedside, patient came to the ER today with palpitations,
shortness of breath, patient with history of COPD, atrial flutter, recently discharged on March 17 after admission for new onset atrial flutter, started on Eliquis.
X-ray shows no pneumonia, EKG shows a flutter with RVR.
Patient received IV fluid in the ER and heart rate improved.
Patient was poor historian but admitted having difficulty breathing with exertion, came to the ER today after her appointment with her urology for Redd catheter placed last admit.
Physical�exam:
GENERAL : Patient is awake, but not fully oriented
HEENT: Nonicteric sclerae, PERRLA, EOMI. Oropharynx clear. Moist mucous membranes. Conjunctivae appear well perfused.
CHEST: Chest wall is nontender.
HEART: irregular rate and rhythm without murmurs.
LUNGS: Diminished breath sound bilateral
ABDOMEN: Soft, positive bowel sounds, nontender, no organomegaly.
RECTAL: Deferred.
MUSCLES/EXTREMITIES: No abnormal range of motion, no swelling.SKIN: No rash, no excessive bruising, petechiae, or purpura.
NEUROLOGIC: Cranial nerves II-XII intact without motor/sensory deficit.
�
Assessment/plan:
Atrial flutter with RVR.
Heart rate improved with fluids.
Continue home meds in form of amiodarone, Cardizem, Eliquis.
As needed Lopressor.
Cardiology consult
COPD exacerbation, mild.
Chronic bronchitis.
Steroid.
Breathing treatment
Check COVID/flu
Urine retention.
Redd catheter in place
Oral thrush.
Continue nystatin.
Hold fluconazole
Hypertension.
Continue home meds
DVT prophylaxis: Eliquis
Diet: cardiac
�
Total time spent on today�s encounter was 75 minutes which included time spent in counseling the patient/family regarding diagnosis and treatment plan as listed above, goals of care, and symptom management. Case was discussed with nursing staff,
specialists, and care coordinators/case management. All labs and imaging personally reviewed by me. Remainder the time spent in detailed review of previous records, lab data, imaging, and other medical provider documentation.
--- NOTE | 2025-04-01 18:37 | HPS.HSE ---
Family Physician
-
Family Physician: Kristal Flores
Chief Complaint
-
dyspnea,fatigue
History of Present Illness
A 89 y/o F with a pmh of atrial fibrillation, COPD not on home O2, hypertension, anxiety presenting to the ED with difficulty breathing and feeling fatigue. She denies change in her baseline COPD coughing, change in sputum. Her sputum is clear in
color. Today she had an appt with a urologist and her Dr. told to go to the ED after seeing her. She is on urinary catheter she does not know the reason. It was rec with her recent hospitalization at on 03/17/2025 due to urinary retention. She
denies any fevers or chills. She denies any chest pain, palpitations. She has no recent flulike symptoms. At ED her BP and HR was low. She received IVF and being admitted to IVU.
Medical History
Past Medical History
Past Medical History: Reports Arrhythmia, CHF, COPD and HTN
Past Surgical History: Reports None
Social History
Tobacco: Former Smoker
Alcohol: Occasional (twice a week, 1 glass )
Drug: None
Living: Alone
Family History
Family History: Not pertinent
Allergies / Home Medications
Allergies reflects when Allergies were last updated in [facility].
Home Medications with original date entered in [facility]
Allergy/Medication List:
Allergies
Allergy/AdvReac Type Severity Reaction Status Date / Time
Penicillins Allergy Rash Verified 04/01/25 14:13
Home Medications
lidocaine 5 % topical patch 1 patch topical DAILYPRN PRN lower back 03/06/25
acetaminophen 325 mg tablet 650 mg (2 x 325 mg) PO Q6HPRN PRN mild pain/ fever>100.5F #0 tabs 03/15/25
amiodarone 200 mg tablet (Pacerone) 200 mg PO DAILY Arrhythmia #0 tabs 03/15/25
apixaban 2.5 mg tablet (Eliquis) 2.5 mg PO BID Blood clot prevention/tx #0 tabs 03/15/25
diltiazem HCl 120 mg capsule,extended release 24 hr 120 mg PO DAILY Heart disease/condition #0 caps 03/15/25
furosemide 20 mg tablet 20 mg PO DAILY Fluid retention/Swelling #0 tabs 03/15/25
guaifenesin 600 mg tablet, extended release 12 hr 600 mg PO Q12 Lung/breathing issues #0 tabs 03/15/25
ipratropium 0.5 mg-albuterol 3 mg (2.5 mg base)/3 mL nebulization soln 3 ml inhalation R Q4HPRN PRN sob #0 mL 03/15/25
ipratropium 0.5 mg-albuterol 3 mg (2.5 mg base)/3 mL nebulization soln 3 ml inhalation R QID Lung/breathing issues #0 mL 03/15/25
losartan 50 mg tablet 50 mg PO DAILY Blood pressure #0 tabs 03/15/25
nicotine 7 mg/24 hr daily transdermal patch 7 mg transdermal DAILY Smoking cessation #0 ea 03/15/25
oxycodone 5 mg tablet 5 mg PO BIDPRN PRN severe pain #5 tabs 03/15/25
pantoprazole 40 mg tablet,delayed release 40 mg PO DAILY Gastrointestinal issue #0 tabs 03/15/25
bisacodyl 10 mg rectal suppository (Dulcolax (bisacodyl)) 10 mg VT DAILYPRN PRN if no bm aftr mom giv gabriel day 5 04/01/25
docusate sodium 100 mg capsule (Colace) 200 mg PO HS Constipation 04/01/25
fluconazole 200 mg tablet 200 mg PO DAILY 04/01/25
lorazepam 0.5 mg tablet 0.5 mg PO Q6HPRN PRN anixety 04/01/25
magnesium hydroxide 400 mg/5 mL oral suspension (Milk of Magnesia) 2,400 mg PO [id number] PRN if no bm by 3rd day give on day 4 04/01/25
nystatin 100,000 unit/mL oral suspension 30 ml mucous membrane TID 04/01/25
peppermint 350 mg capsule 90 mg PO DAILYPRN PRN stomach issuses 04/01/25
phenol 1.4 % mucosal aerosol spray 2 spray mucous membrane Q2HPRN PRN sore throat 04/01/25
polyethylene glycol 3350 17 gram oral powder packet 17 g PO DAILYPRN PRN constipation 04/01/25
sennosides 8.6 mg tablet (Hina-ame) 17.2 mg PO Q48H Constipation 04/01/25
sennosides 8.6 mg tablet (senna) 17.2 mg PO BIDPRN PRN constipation 04/01/25
sodium phosphates 19 gram-7 gram/118 mL enema (Fleet Enema) 118 ml VT DAILYPRN PRN if no bm aftr dulcoalc give on day 6 04/01/25
Review of Systems
-
History Source: Patient
Constitutional: Reports Fatigue
EENT: Reports Mouth Pain
Respiratory: Reports Trouble Breathing
Abdomen/GI: Reports No Symptoms
: Reports Redd
Musculoskeletal: Reports No Symptoms
Skin: Reports No Symptoms
Neurological: Reports No Symptoms
Endocrine: Reports No Symptoms
Psych: Reports Calm
Physical Exam
Vital Signs
Vital Signs
Temp Pulse Resp BP Pulse Ox
98.1 F 100 26 101/62 96
04/01/25 14:14 04/01/25 18:30 04/01/25 18:30 04/01/25 18:00 04/01/25 14:52
Physical Exam
General: Respiratory Distress, Appears Chronically Ill and Cachectic
HEENT: NormoCephalic, Moist mucous membranes, Thrush and Pharyngeal Erythema
Respiratory: Clear and Decreased Breath Sounds
Cardiac: S1/S2, Regular Rhythm and Tachycardia
Breast: Deferred by me
GI: Soft, Non Tender, Non Distended and Normal Bowel Sounds
Rectal: Deferred by Provider
Genito-urinary: Redd
Musculoskeletal: No Clubbing, No Cyanosis and No Edema
Skin: Warm and Decubitus Ulcers (sacral wound)
Neuro: AO x 3, No Motor Deficits, Nonfocal/grossly intact, Cranial Nerves Intact and No Sensory Deficits
Hematologic/Lymphatic: No Lymphadenopathy
Psych: Anxious
Laboratory Results
-
04/01/25 14:35
04/01/25 15:29
Laboratory Results
Total Bilirubin 0.5 mg/dl (0.2-1.3) 04/01/25 15:29
AST 19 U/L (14-36) 04/01/25 15:29
ALT 22 U/L (0-35) 04/01/25 15:29
Alkaline Phosphatase 98 U/L (38-126) 04/01/25 15:29
Troponin I 0.028 ng/ml 04/01/25 14:35
Impression/Plan
-
IMPRESSION
A 89 y/o F with a pmh of atrial fibrillation, COPD not on home O2, hypertension, anxiety presenting to the ED with difficulty breathing and feeling fatigue. At ED her BP and HR was low. She received IVF and being admitted to the IVU.
PLAN:
Paroxysmal Atrial flutter with RVR
Hypotension corrected with IV Fluid repletion
-Initially her BP was 89/49, HR 52
-Consult Cardiology, input appreciated
-Continue home meds- Eliquis, Amiodarone, Diltiazem
-Lopressor 5mg Q6h, prn if HR>110, hold if SBP <100
-Check TSH
ECG 04/01/2025
-ATRIAL FLUTTER WITH VARIABLE A-V BLOCK
-ANTEROSEPTAL INFARCT
Acute COPD exacerbation, mild vs Possible chronic bronchitis
-Dyspnea, no change in coughing/sputum
-Dexamethasone 6mg Q12h IV
-Duoneb prn
-Covid/Flu test- pending
Chronic HFpEF
-Furosemide d/c
-daily weight
Echo 03/07/2025
-LVEF 64%
-RV size normal. Aortic valve sclerosis w/o stenosis
-Dense mitral calcification. leaflet MVP. Moderate to severe mitral Regurgitation. Severe tricuspid regurgitation. PAP 61mmhg, RAP 8mmhg
Essential Hypertension
-Continue Losartan
Hypokalemia
-K 3.4- repleted 40KCL PO
Thrush
-Fluconasole DC due to interaction with Amio
-Continue Nystatin
Chronic Urinary Redd catheter Use
-It was rec at last adission to due to urinary retention
-no complaints
-UA
Constipation
-sennokat
Anxiety
-Continue Lorazepam
Sacral wound
-Consult wound care
Hiatal hernia
-Continue PPI
Nicotine dependence, former smoker
-Continue daily nicotine patch
DVT prophylaxis: Eliquis
DNR
[2025-04-01 19:17] LABS: COVID-19 Antigen Negative (Negative)
[2025-04-01 20:30] LABS: Urine Character Slightly Cloudy (Clear)
[2025-04-01] MEDS: MUCINEX 600 MG PO (20:39)
[2025-04-01] MEDS: KCL 40 MEQ PO (20:39)
[2025-04-01] MEDS: COLACE 200 MG PO (20:39)
[2025-04-01] MEDS: ELIQUIS 2.5 MG PO (20:39)
[2025-04-01] MEDS: ATIVAN 0.5 MG PO (20:42)
[2025-04-01 20:43] LABS: Urine Red Blood Cell >100 /HPF (0-2); Urine Squamous Cell 0-2 /LPF (Few); Urine White Cell >100 /HPF (0-5)
[2025-04-01] MEDS: SENOKOT 8.6 MG PO (21:33)
[2025-04-01] MEDS: MYCOSTATIN ORAL SUSPENSION 5 ML PO (23:09)
[2025-04-02] VITALS (10 sets, daily range): BP systolic 93–130; BP diastolic 59–91; BMI 14.3
[2025-04-02] MEDS: DECADRON 6 MG IV ×2 (03:16→16:36)
[2025-04-02 03:29] LABS: Hematocrit 35.3 % (37.0-47.0); Hemoglobin 12.3 g/dL (12.0-16.0); Mean Corp Hgb Conc. 34.8 g/dL (33.0-37.0); Mean Corpuscular Volume 83.6 fL (81.0-99.0); Platelet Count 219 10^3/uL (130-400); Red Cell Dist. Width 17.2 % (11.5-14.5)
[2025-04-02 03:57] LABS: Blood Urea Nitrogen 25 mg/dl (7-17); Calcium 8.4 mg/dl (8.4-10.2); Carbon Dioxide 23 mmol/L (22-30); Chloride 106 mmol/L (98-107); Estimated Creatinine Clearance 24 ml/min; Glucose 119 mg/dl (70-99); Magnesium 1.6 mg/dl (1.6-2.3); Potassium 4.4 mmol/L (3.5-5.1); Sodium 134 mmol/L (135-145); eGFR > 60.00
[2025-04-02 04:59] LABS: TSH 1.23 uIU/ml (0.47-4.68)
--- NOTE | 2025-04-02 06:31 | PTCARENOTE ---
Admitted pt from ED to room 2258, aaox3, drowsy and lethargic. transferred from stretcher to bed with assist x 4, unable to stand d/t weakness. Aflutter on tele, Hr 90's, bp stable. Assessment questionnaires completed. Oriented to room and call
light. Call light within reach, POC ongoing.
--- NOTE | 2025-04-02 08:00 | CON.CAR ---
Addendum entered and electronically signed by Isrrael Conn DO 04/03/25 08:36:
.
amiodarone 200 mg BID
Addendum entered and electronically signed by Isrrael Conn, 04/02/25 10:15:
I saw and examined the patient.
The Physician'S Aide's note was reviewed and I agree with the note.
Comment:
Plan:
Amiodarone re load with amio 200 mg TID for now and monitor HR and bp.
Already feels improved and denies complaints
Mod to severe MR likely contributing to aFib. Cont conservative management of her valvular heart disease.
Follow QTc by EKG, stable
Recent echo reviewed, no need to repeat at this time.
TSH normal
Cont Eliquis as no recurrent hematuria.
Appears euvolemic.
pBNP elevated at 3600 however weight down compared to last admission at 75 lbs and chest xray without evidence of acute CHF. Cont po lasix 20mg daily.
Original Note:
Consultation
Consultation Request
Date/Time Consultation Performed: 04/02/25
Requesting Provider: Dr. Meade
Performing Provider: Victoria Lorenzo PA-C for Dr. Harrell
Reason for Consultation: afib/flutter
Medical History
-
Chief Complaint: weakness
History of Present Illness:
Patient with hypertension, COPD with admission to the [facility] 03/06 - 03/16/2025 for hematuria, urinary retention, new onset A-fib started on amiodarone and Eliquis who was discharged to SNF at [facility]. Went to urologist for follow-up yesterday and
was noted to be hypotensive and tachycardic and referred back to ER. Noted to be back in atrial fibrillation. Patient denies feelings of palpitations, CP.
PMH:
Admission PM for hematuria, urinary retention, afib, abd pain 03/06-03/16/25
Atrial fibrillation diagnosed 03/06/25
Moderate to severe MR
Severe TR
HTN
COPD
Active smoker
Past Medical History
Past Medical History: Other (In HPI)
Past Surgical History: None
Social History
Tobacco: Smoker
Alcohol: None
Drug: None
Personal:
Living: Alone
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
Family History
Family History: Other (No FH of CAD)
Allergies / Home Medications
Allergy/AdvReac Type Severity Reaction Status Date / Time
Penicillins Allergy Rash Verified 04/01/25 14:13
�Medication �Instructions �Recorded �Confirmed �Type
lidocaine 5 % topical patch 1 patch topical DAILYPRN PRN lower 03/06/25 04/01/25 History
back
acetaminophen 325 mg tablet 650 mg (2 x 325 mg) PO Q6HPRN PRN 03/15/25 04/01/25 Rx
mild pain/ fever>100.5F #0 tabs
amiodarone 200 mg tablet (Pacerone) 200 mg PO DAILY Arrhythmia #0 tabs 03/15/25 04/01/25 Rx
apixaban 2.5 mg tablet (Eliquis) 2.5 mg PO BID Blood clot 03/15/25 04/01/25 Rx
prevention/tx #0 tabs
diltiazem HCl 120 mg 120 mg PO DAILY Heart 03/15/25 04/01/25 Rx
capsule,extended release 24 hr disease/condition #0 caps
furosemide 20 mg tablet 20 mg PO DAILY Fluid 03/15/25 04/01/25 Rx
retention/Swelling #0 tabs
guaifenesin 600 mg tablet, 600 mg PO Q12 Lung/breathing 03/15/25 04/01/25 Rx
extended release 12 hr issues #0 tabs
ipratropium 0.5 mg-albuterol 3 mg 3 ml inhalation R Q4HPRN PRN sob 03/15/25 04/01/25 Rx
(2.5 mg base)/3 mL nebulization #0 mL
soln
ipratropium 0.5 mg-albuterol 3 mg 3 ml inhalation R QID 03/15/25 04/01/25 Rx
(2.5 mg base)/3 mL nebulization Lung/breathing issues #0 mL
soln
losartan 50 mg tablet 50 mg PO DAILY Blood pressure #0 03/15/25 04/01/25 Rx
tabs
nicotine 7 mg/24 hr daily 7 mg transdermal DAILY Smoking 03/15/25 04/01/25 Rx
transdermal patch cessation #0 ea
oxycodone 5 mg tablet 5 mg PO BIDPRN PRN severe pain #5 03/15/25 04/01/25 Rx
tabs
pantoprazole 40 mg tablet,delayed 40 mg PO DAILY Gastrointestinal 03/15/25 04/01/25 Rx
release issue #0 tabs
bisacodyl 10 mg rectal suppository 10 mg OR DAILYPRN PRN if no bm 04/01/25 04/01/25 History
(Dulcolax (bisacodyl)) aftr mom giv gabriel day 5
docusate sodium 100 mg capsule 200 mg PO HS Constipation 04/01/25 04/01/25 History
(Colace)
fluconazole 200 mg tablet 200 mg PO DAILY 04/01/25 04/01/25 History
lorazepam 0.5 mg tablet 0.5 mg PO Q6HPRN PRN anixety 04/01/25 04/01/25 History
magnesium hydroxide 400 mg/5 mL 2,400 mg PO [id number] PRN if no bm 04/01/25 04/01/25 History
oral suspension (Milk of Magnesia) by 3rd day give on day 4
nystatin 100,000 unit/mL oral 30 ml mucous membrane TID 04/01/25 04/01/25 History
suspension
peppermint 350 mg capsule 90 mg PO DAILYPRN PRN stomach 04/01/25 04/01/25 History
issuses
phenol 1.4 % mucosal aerosol spray 2 spray mucous membrane Q2HPRN PRN 04/01/25 04/01/25 History
sore throat
polyethylene glycol 3350 17 gram 17 g PO DAILYPRN PRN constipation 04/01/25 04/01/25 History
oral powder packet
sennosides 8.6 mg tablet (Hina-ame) 17.2 mg PO Q48H Constipation 04/01/25 04/01/25 History
sennosides 8.6 mg tablet (senna) 17.2 mg PO BIDPRN PRN constipation 04/01/25 04/01/25 History
sodium phosphates 19 gram-7 118 ml OR DAILYPRN PRN if no bm 04/01/25 04/01/25 History
gram/118 mL enema (Fleet Enema) aftr dulcoalc give on day 6
Review of Systems
-
History Source: Patient
All other systems: Negative unless noted
Physical Exam
Vital Signs
Temp Pulse Resp BP Pulse Ox
96.9 F L 95 20 102/76 97
04/02/25 02:50 04/02/25 06:30 04/02/25 02:50 04/02/25 02:48 04/02/25 02:50
Lab Results
04/02/25 03:10
04/02/25 03:10
Troponin I 0.028 ng/ml 04/01/25 14:35
Dpn-O-Jttnfjwakdq Pept 3690 pg/ml 04/01/25 14:35
Physical Exam
General: No Apparent Distress and Comfortable
HEENT: Normocephalic, Anicteric and Moist Mucous Membranes
Respiratory: Clear and Non Labored Respirations
Cardiac: S1/S2, Irregular Rhythm and Murmur
GI: Soft, Non Tender, Non Distended and Normal Bowel Sounds
Musculoskeletal: No Clubbing, No Cyanosis and No Edema
Skin: Warm and Dry
Neuro: AO x 3
Impression / Plan
-
PCP: Dr. Kristal Flores
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 Shantal Mercado
Assessment:
Presentation with hypotension, tachycardia
Atrial fibrillation diagnosed 03/06/25, now with recurrence
Admission [facility] for hematuria, urinary retention, afib, abd pain 03/06-03/16/25
Moderate to severe MR
Severe TR
HTN
COPD
Active smoker
Hypoalbuminemia
DNR
ECHO 03/07/25: EF 64%, aortic sclerosis, dense MAC, possible posterior MVP, moderate to severe MR, severe TR, PAP 61 mmHg
Plan:
-Patient with recent admission for new diagnosis afib, hematuria and urinary retention presents back due to recurrence of arrhythmia
-denies palpitations
-reports feeling well compared to admission
-presume patient has been getting medications as prescribed at [facility]
-will increase amiodarone to 200mg BID and follow QTc by EKG, stable by review of 04/01 EKG.
-suspect mod to severe MR contributing to arrhythmia. plan for conservative mgmt of valvular disease
-recent echo with results as above
-TSH WNL
-no recurrence of hematuria noted. continue eliquis 2.5mg BID. hgb 12.3
-proBNP elevated at 3600 however weight down compared to last admission (75 lbs!) and CXR without evidence of acute CHF. not requiring supp O2. hesitant to aggressively diurese further. on po lasix 20mg daily.
-dietary consultation given cachexia
-d/w nursing
Data Reviewed
-
EKG: Tracing Personally Visualized and interpreted
Radiology: Report Reviewed by me
Medical Tests (Nuc Med, Echo etc): Report Reviewed by me
Labs: Labs Reviewed by me
Old Records: Reviewed
--- NOTE | 2025-04-02 08:32 | W.PN.HOSP.TC ---
Addendum entered and electronically signed by Marianela Meade MD 04/02/25 13:30:
Attending�addendum:
I saw and evaluated the patient independently. I reviewed and discussed the resident�s note and agree with findings and plan as documented in the resident�s note.� Patient seen and examined at bedside, denies any chest pain , shortness of breath
Improved, no abdominal pain, no nausea, no vomiting, no diarrhea or constipation.
Physical�exam:
GENERAL : Patient is awake, alert, oriented x3
HEENT: Nonicteric sclerae, PERRLA, EOMI. Oropharynx clear. Moist mucous membranes. Conjunctivae appear well perfused.
CHEST: Chest wall is nontender.
HEART: irregular rate and rhythm without murmurs.
LUNGS: Clear to auscultation bilaterally.
ABDOMEN: Soft, positive bowel sounds, nontender, no organomegaly.
RECTAL: Deferred.
MUSCLES/EXTREMITIES: No abnormal range of motion, no swelling.SKIN: No rash, no excessive bruising, petechiae, or purpura.
NEUROLOGIC: Cranial nerves II-XII intact without motor/sensory deficit.
�
Assessment/plan:
�Atrial flutter with RVR.
Heart rate improved with fluids.
Continue home meds in form of amiodarone, Cardizem, Eliquis.
As needed Lopressor.
Cardiology consulted, reloading amiodarone
COPD exacerbation, mild.
Chronic bronchitis.
Steroid.
Breathing treatment
Shortness of breath improved
Urine retention.
Torres catheter in place
Voiding trial
Oral thrush.
Continue nystatin.
Hold fluconazole
Hypertension.
Continue home meds
DVT prophylaxis: Eliquis
Diet: cardiac
�
Total time spent on today�s encounter was 60 minutes which included time spent in counseling the patient/family regarding diagnosis and treatment plan as listed above, goals of care, and symptom management. Case was discussed with nursing staff,
specialists, and care coordinators/case management. All labs and imaging personally reviewed by me. Remainder the time spent in detailed review of previous records, lab data, imaging, and other medical provider documentation.
Original Note:
Today's Communication/Plan
-
start empiric ceftriaxone for UTI
Continue Lasix 20mg PO
Watch HR, BP
Assessment / Plan
Assessment / Plan
IMPRESSION
A 89 y/o F with a pmh of atrial fibrillation, COPD not on home O2, hypertension, anxiety presenting to the ED with difficulty breathing and feeling fatigue. At ED her BP and HR was low. She received IVF and being admitted to the IVU.
PLAN:
Paroxysmal Atrial flutter with RVR
Hypotension corrected with IV Fluid repletion
-Initially her BP was 89/49, HR 52
-Consult Cardiology, input appreciated
-Continue home meds- Eliquis, Amiodarone, Diltiazem
-Reload with Amio 200mg TID for now
-Follow QTc on ECG, stable
-Mod to severe MR likely contributing to aFib
-Lopressor 5mg Q6h, prn if HR>110, hold if SBP <100
-TSH 1.23- WNL
-monitor HR, BP
ECG 04/01/2025
-ATRIAL FLUTTER WITH VARIABLE A-V BLOCK
-ANTEROSEPTAL INFARCT
Acute COPD exacerbation, mild vs Possible chronic bronchitis
-Dyspnea, no change in coughing/sputum
-Dexamethasone 6mg Q12h IV
-Duoneb prn
-Covid/Flu test- neg
Chronic HFpEF
-euvolemic
-pBNP 3600
-Chest xray no evidence of acute CHF
-Continue Furosemide PO QD
-daily weight 34.2kg
Echo 03/07/2025
-LVEF 64%
-RV size normal. Aortic valve sclerosis w/o stenosis
-Dense mitral calcification. leaflet MVP. Moderate to severe mitral Regurgitation. Severe tricuspid regurgitation. PAP 61mmhg, RAP 8mmhg
Chronic Urinary Torres catheter Use, asymtpomatic UTI
-It was rec at last adission 03/06 to due to urinary retention
-UA (+)
-Urine Cx-pending
-Voiding trial- d/c torres, bladder scan
-start empiric ceftiraxone 1g QD #D1
Thrush
-Fluconasole DC due to interaction with Amio
-Continue Nystatin suspension 5ml
Essential Hypertension
-Continue Losartan
Hypokalemia
-K 3.4- repleted K4.4
Essential Hypertension
-Continue Losartan
Constipation
-senokat
Anxiety
-Continue Lorazepam
Sacral wound
-Consult wound care
Hiatal hernia
-Continue PPI
Nicotine dependence, former smoker
-Continue daily nicotine patch
DVT prophylaxis: Eliquis
DNR
Anticipated Discharge: > 48 hours
Subjective/Interval History
-
Date of Service: April 02, 2025
Objective Data
-
Labs:
Laboratory Results
04/02/25
03:10
WBC 8.8
Hgb 12.3
Hct 35.3 L
Plt Count 219
Sodium 134 L
Potassium 4.4 D
Chloride 106
Carbon Dioxide 23
BUN 25 H
Creatinine 0.9
Glucose 119 H
Calcium 8.4
Vital Signs:
Vital Signs
Temp Pulse Resp BP Pulse Ox
97.7 F 98 17 102/76 93
04/02/25 08:25 04/02/25 08:25 04/02/25 08:25 04/02/25 02:48 04/02/25 08:25
I&O
04/01/25 04/02/25 04/03/25
06:59 06:59 06:59
Intake Total 240 / 240
Balance 240 / 240
[2025-04-02] MEDS: PROTONIX 40 MG PO (09:22)
[2025-04-02] MEDS: ELIQUIS 2.5 MG PO ×2 (09:22→19:44)
[2025-04-02] MEDS: MUCINEX 600 MG PO ×2 (09:23→19:42)
[2025-04-02] MEDS: SENOKOT 8.6 MG PO ×2 (09:23→19:42)
[2025-04-02] MEDS: PACERONE 200 MG PO ×2 (09:23→19:42)
[2025-04-02] MEDS: LIDOCAINE 4% PATCH 1 PATCH TOPICAL (09:23)
[2025-04-02] MEDS: COZAAR 50 MG PO (09:23)
[2025-04-02] MEDS: CARDIZEM CD 120 MG PO (09:23)
[2025-04-02] MEDS: NICODERM TRANSDERMAL 7 MG TRANSDERM (09:24)
[2025-04-02] MEDS: MYCOSTATIN ORAL SUSPENSION 5 ML PO ×3 (10:02→22:27)
--- NOTE | 2025-04-02 12:03 | CM ---
Spoke with patient in room, prior to admission she was at [facility] for rehab. Went to urology appt and sent to ER in [place]. [facility] called, bed is on hold.
Spoke to jeb Stallings on phone, he confirms that patient was previously independent living alone, split level, with cane. She was just elected to [facility] this year and leads an active life.
Plan for return to [facility] for additional rehab when medically stable, before returning home.
--- NOTE | 2025-04-02 12:45 | WOUNDNOTE ---
GREAT TOE TIPS
--- NOTE | 2025-04-02 12:45 | WOUNDNOTE ---
R GREAT TOE TIP
--- NOTE | 2025-04-02 12:45 | WOUNDNOTE ---
L GREAT TOE TIP
--- NOTE | 2025-04-02 12:46 | WOUNDNOTE ---
R LATERAL 5TH TOE
[2025-04-02] MEDS: MAGNESIUM SULFATE 50 IV (12:50)
--- NOTE | 2025-04-02 12:50 | WOUNDNOTE ---
WON RN note: Patient admitted with acute exacerbation of COPD.
See H&P for complete history. From [facility].
PMH: The patient is an 89-year-old female with a history of atrial flutter, atrial fibrillation, and chronic obstructive pulmonary disease (COPD).
Wound Location and type/assessment: Patient admitted with: 2 stage 2 PI's on Coccyx, scant drainage, painful reports patient. R heel blanchable red. Great toe tips curl up, with evolving blood blisters and R 5th toe with similar discoloration. No
edema in legs, skin warm and dry. Suspect patient has poor circulation due to smoking history and banged toes on something, causing blood blister. Patient has slippers from home at bedside. Spine very bony, blanchable pink, protective foams in use
on back and heels.
Appetite: Poor, patient very thin, dietary on consult. Encouraged protein in diet.
Pressure redistribution devices in place: On air mattress, turns self, pillow under calves. Air cushion in use.
Plan: For Sacrum applied adaptic then sacral silicone foam. Protective foams changed on back and heels. Skin prepped toe tips, may need arterial studies if become worse, nurse Kasey made aware.
Will confirm orders with hospitalist. Updated care plan and will follow as needed.
Note to case management of equipment requested for discharge: VN if home.
Recommend follow up at wound care center upon discharge.
[2025-04-02] MEDS: ROCEPHIN 1000 MG IV (13:34)
[2025-04-02] MEDS: STERILE WATER FOR INJECTION 10 ML IV (13:34)
[2025-04-02] MEDS: MYCOSTATIN ORAL SUSPENSION PO (13:48)
[2025-04-02] MEDS: ATIVAN 0.5 MG PO (19:42)
[2025-04-02] MEDS: REMOVE LIDOCAINE PATCH 1 PATCH REMOVE (19:44)
[2025-04-02] MEDS: COLACE 200 MG PO (22:27)
--- NOTE | 2025-04-03 00:57 | PTCARENOTE ---
Assumed care of pt at change of shift OOB in chair. Afib/flutter on tele, HR 70's-80's. pt denies any CP or SOB at this time. PRN Ativan administered per pt request for anxiety--see JUL. Fall risk precautions maintained, encouraged pt to call RN for
assistance ambulating. pt calls appropriately. Call shields within reach.
[2025-04-03 02:56] VITALS: BP 126/91
[2025-04-03 03:22] VITALS: BMI 14.7
[2025-04-03] MEDS: DECADRON 6 MG IV (03:38)
[2025-04-03 04:39] LABS: Hematocrit 38.4 % (37.0-47.0); Hemoglobin 12.5 g/dL (12.0-16.0); Mean Corp Hgb Conc. 32.6 g/dL (33.0-37.0); Mean Corpuscular Volume 86.9 fL (81.0-99.0); Platelet Count 255 10^3/uL (130-400); Red Cell Dist. Width 17.8 % (11.5-14.5)
[2025-04-03 04:43] LABS: Blood Urea Nitrogen 39 mg/dl (7-17); Calcium 8.7 mg/dl (8.4-10.2); Carbon Dioxide 23 mmol/L (22-30); Chloride 102 mmol/L (98-107); Estimated Creatinine Clearance 16 ml/min; Glucose 127 mg/dl (70-99); Potassium 4.5 mmol/L (3.5-5.1); Sodium 132 mmol/L (135-145); eGFR 36.41
--- NOTE | 2025-04-03 07:55 | PN.CDI ---
CDI
- -
CDI:
Physician Documentation Request
Admit Date: 04/01/25 19:17
Dear Doctor Sana and Dr. Meade,
Please review the following and provide your response in the progress notes.
Clinical Indicators:
Telepathist, 04/02
#Current BW: (04/02) 75 lbs 6.369 oz BMI: 14.3 (underweight).
#...No recent weight history.
#Patient meets AND and ASPEN criteria for severe protein calorie malnutrition
#...of chronic disease due to a severe loss of muscle and
#...a severe loss of fat at the patient's triceps and clavicle.
Based on the above and you clinical assessment, please clarify the patient's nutritional status:
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
Other (please specify)
[place] Criteria ([facility] Hospitalist 2017)
2 or more criteria must be present for either
non severe or severe malnutrition
Note that the criteria differs related to the
presence of an acute or chronic illness
Chronic Illness
Energy Intake Non Severe: <75% for >1 month
Severe: <75% for >1 month
Weight Loss Non Severe: 5% over 1 month
7.5% over 3 months
10% over 6 months
20% over 1 year
Severe: >5% over 1 month
>7.5% over 3 months
>10% over 6 months
>20% over 1 year
Body Fat Non Severe: Mild Loss
Severe: Severe Loss
Muscle Mass Non Severe: Mild Loss
Severe: Severe Loss
Use of terms such as suspected, likely, concern for, or probable (associated with a specific diagnosis that is being evaluated, monitored, or treated as if it exists) are acceptable and can be coded in the inpatient setting, when documented at the
time of discharge.
Thank you,
Virgie Kim RN BSN CCDS
CDI Specialist
please contact via tiger text
Please use your independent medical judgment in providing your response.
[2025-04-03] MEDS: SENOKOT 8.6 MG PO ×2 (08:00→19:58)
--- NOTE | 2025-04-03 08:05 | PN.CDI ---
CDI
- -
CDI:
Physician Documentation Request
Admit Date: 04/01/25 19:17
Dear Doctor Sana and Dr. Meade,
Please review the following and provide your response in the progress notes.
Clinical Indicators:
04/02/25 12:50 (created 04/02/25 13:49) - Wound Note
#Wound Location and type/assessment:
#...admitted with: 2 stage 2 PI's on Coccyx, scant drainage, painful reports patient.
#...R heel blanchable red. Great toe tips curl up, with evolving blood blisters
#...and R 5th toe with similar discoloration. No edema in legs, skin warm and dry.
#...Suspect patient has poor circulation due to smoking history
#...and banged toes on something, causing blood blister.
#...Spine very bony, blanchable pink, protective foams in use on back and heels.
Selected Entries
04/02/25
01:48
Pressure injury stage [Present on admission Sacrum] Stage 2
Physician documentation of the type and location of wounds is required for compliant documentation. Based on the above clinical findings and your assessment, please provide the following in your progress note:
Yes, Stage 2 pressure injury sacrum, POA
No, Stage 2 pressure injury sacrum
Other (please specify)
1. Location of the ulcer/wound, including laterality.
2. Type (etiology) of ulcer/wound:
- Diabetic ulcer
- Arterial (ischemic) ulcer
- Traumatic wound
- Venous stasis ulcer
- Pressure (decubitus) ulcer
3. For a non-pressure ulcer, please indicate the depth/severity:
- Limited to the breakdown of skin
- With fat layer exposed
- With necrosis of muscle
- With necrosis of bone
4. If a pressure ulcer, please also include the stage* of the ulcer:
- Stage 1 - Skin intact, non-blanchable redness
- Stage 2 - Partial thickness loss of dermis, includes intact or open blister
- Stage 3 - Full thickness tissue not including bone, tendon or muscle
- Stage 4 - Full thickness tissue loss, including exposed bone, tendon or muscle
- Unstageable - Full thickness loss in which the base of the ulcer is covered by slough (yellow, villa, hennessy, green or brown) and/or eschar (villa, brown or black) in the wound bed.
- Unable to determine
Use of terms such as suspected, likely, concern for, or probable (associated with a specific diagnosis that is being evaluated, monitored, or treated as if it exists) are acceptable and can be coded in the inpatient setting, when documented at the
time of discharge.
Thank you,
Virgie Kim RN BSN CCDS
CDI Specialist
Please contact via tiger text
Please use your independent medical judgment in providing your response.
*Source: National Pressure Ulcer Advisory Panel (NPUAP)
[2025-04-03 08:18] VITALS: BP 114/93
--- NOTE | 2025-04-03 08:36 | W.PN.HOSP.TC ---
Addendum entered and electronically signed by Marianela Meade MD 04/03/25 13:17:
Attending�addendum:
I saw and evaluated the patient independently. I reviewed and discussed the resident�s note and agree with findings and plan as documented in the resident�s note.� Patient seen and examined at bedside, denies any chest pain , shortness of breath
Improved, no abdominal pain, no nausea, no vomiting, no diarrhea or constipation.
Physical�exam:
GENERAL : Patient is awake, alert, oriented x3
HEENT: Nonicteric sclerae, PERRLA, EOMI. Oropharynx clear. Moist mucous membranes. Conjunctivae appear well perfused.
CHEST: Chest wall is nontender.
HEART: irregular rate and rhythm without murmurs.
LUNGS: Clear to auscultation bilaterally.
ABDOMEN: Soft, positive bowel sounds, nontender, no organomegaly.
RECTAL: Deferred.
MUSCLES/EXTREMITIES: No abnormal range of motion, no swelling.SKIN: No rash, no excessive bruising, petechiae, or purpura.
NEUROLOGIC: Cranial nerves II-XII intact without motor/sensory deficit.
�
Assessment/plan:
�Atrial flutter with RVR.
Heart rate improved with fluids.
Continue home meds in form of amiodarone, Cardizem, Eliquis.
As needed Lopressor.
Cardiology consulted, reloading amiodarone
COPD exacerbation, mild.
Chronic bronchitis.
Steroid.
Breathing treatment
Shortness of breath improved
Urine retention.
Torres catheter removed
Voiding trial
Oral thrush.
Continue nystatin.
Hold fluconazole
Hypertension.
Continue home meds
Pressure�� injury stage [Present on admission Sacrum] Stage 2�
�Severe protein calorie malnutrition of chronic illness
DVT prophylaxis: Eliquis
Diet: cardiac
Total time spent on today�s encounter was 60 minutes which included time spent in counseling the patient/family regarding diagnosis and treatment plan as listed above, goals of care, and symptom management. Case was discussed with nursing staff,
specialists, and care coordinators/case management. All labs and imaging personally reviewed by me. Remainder the time spent in detailed review of previous records, lab data, imaging, and other medical provider documentation.
Original Note:
Today's Communication/Plan
-
Continue Monitoring ecg, HR
Follow cards recs
Start PO prednisone
Assessment / Plan
Assessment / Plan
IMPRESSION
A 89 y/o F with a pmh of atrial fibrillation, COPD not on home O2, hypertension, anxiety presenting to the ED with difficulty breathing and feeling fatigue. At ED her BP and HR was low. She received IVF and being admitted to the IVU.
PLAN:
Paroxysmal Atrial flutter with RVR
Hypotension corrected with IV Fluid repletion
-Initially her BP was 89/49, HR 52
-Consult Cardiology, input appreciated
-Continue home meds- Eliquis, Amiodarone, Diltiazem
-Amio 200mg PO BID
-Follow QTc on ECG, stable
-Mod to severe MR likely contributing to aFib
-Lopressor 5mg Q6h, prn if HR>110, hold if SBP <100
-TSH 1.23- WNL
-monitor HR, BP
ECG 04/01/2025
-ATRIAL FLUTTER WITH VARIABLE A-V BLOCK
-ANTEROSEPTAL INFARCT
Acute COPD exacerbation, mild vs Possible chronic bronchitis
-Dyspnea, no change in coughing/sputum
-Dexamethasone 6mg Q12h IV #D1 - 04/03 switch to Prednisone PO 40mg #D1 taper 10mg every 3 days
-Duoneb prn
-Covid/Flu test- neg
Acute Kidney Injury
-?Prerenal AK , BUN:Cr 27.8
-Cr 1.4 from 0.9
-Urine Output 300ml
Chronic Urinary Torres catheter Use, asymtpomatic UTI
-It was rec at last adission 03/06 to due to urinary retention
-UA (+)
-Urine Cx-gram neg bacilli - pending
-Voiding trial- d/c torres, bladder scan
-start empiric ceftriaxone 1g QD #D2
Chronic HFpEF
-euvolemic
-pBNP 3600
-Chest xray no evidence of acute CHF
-Continue Furosemide PO QD - d/c
-daily weight 34.2kg
Echo 03/07/2025
-LVEF 64%
-RV size normal. Aortic valve sclerosis w/o stenosis
-Dense mitral calcification. leaflet MVP. Moderate to severe mitral Regurgitation. Severe tricuspid regurgitation. PAP 61mmhg, RAP 8mmhg
Thrush
-Fluconasole DC due to interaction with Amio
-Continue Nystatin suspension 5ml
Essential Hypertension
-Continue Losartan
Hypokalemia
-K 3.4- repleted K4.4
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
-03/07 44kg--> 04/01 35.8--> 8kg weight loss in a month
-BMI 14.7
Essential Hypertension
-Continue Losartan
Constipation
-senokat
Anxiety
-Continue Lorazepam
Sacral wound
-Pressure ulcer stage 2 (present on admission)
-Continue wound care
Hiatal hernia
-Continue PPI
Nicotine dependence, former smoker
-Continue daily nicotine patch
DVT prophylaxis: Eliquis
DNR
Anticipated Discharge: > 48 hours
Subjective/Interval History
-
Date of Service: April 03, 2025
She could not fall a sleep at night that is why she is feeling restless. She denies SOB, CP, palpitations, abdominalpain. She feels constipated. She was able to pass small hard lumps of stool.
Objective Data
-
Labs:
Laboratory Results
04/03/25
03:38
WBC 14.8 H
Hgb 12.5
Hct 38.4
Plt Count 255
Sodium 132 L
Potassium 4.5
Chloride 102
Carbon Dioxide 23
BUN 39 H
Creatinine 1.4 H
Glucose 127 H
Calcium 8.7
Vital Signs:
Vital Signs
Temp Pulse Resp BP Pulse Ox
97.4 F 90 18 126/91 98
04/03/25 02:57 04/03/25 06:00 04/03/25 02:57 04/03/25 02:56 04/03/25 02:57
I&O
04/02/25 04/03/25 04/04/25
06:59 06:59 06:59
Intake Total 240 / 240 770 / 770
Output Total 300 / 300
Balance 240 / 240 470 / 470
Review of Systems
-
History Source: Patient
Constitutional: Reports Sleep Disturbance
EENT: Reports No Symptoms Reported
Respiratory: Reports No Symptoms
Cardiac: Reports No Symptoms
Abdomen/GI: Reports No Symptoms
Breast: Reports No Symptoms
Genitourinary: Reports No Symptoms
Musculoskeletal: Reports Muscle Pain (chronic back pain because of wound in her back)
Skin: Reports No Symptoms
Neuro: Reports No Symptoms
Endocrine: Reports No Symptoms
Hematologic / Lymphatic: Reports No Symptoms
Allergy / Immunology: Reports No Symptoms
Physical Exam
-
General: Comfortable and Cachectic
HEENT: Normocephalic, Atraumatic, Thrush and No Ptosis
Respiratory: Clear to Auscultation and Decreased Breath Sounds
Cardiac: S1/S2 and Irregular Rhythm
Breast: Deferred by me
GI: Soft, Nontender, Nondistended and Normal Bowel Sounds
Rectal: Deferred by Provider
Musculoskeletal: No Clubbing, No Cyanosis and No Edema
Skin: Warm, Dry, Ulcers (arterial ulcers on toes) and Decubitus Ulcers (sacrum)
Neuro: AO x 3, No Motor Deficits and No Sensory Deficits
Hematologic / Lymphatic: No Lymphadenopathy
Psych: Calm
[2025-04-03] MEDS: MYCOSTATIN ORAL SUSPENSION 5 ML PO ×4 (09:06→22:35)
[2025-04-03] MEDS: NICODERM TRANSDERMAL 7 MG TRANSDERM (09:06)
[2025-04-03] MEDS: COZAAR 50 MG PO (09:07)
[2025-04-03] MEDS: PACERONE 200 MG PO ×3 (09:07→22:35)
[2025-04-03] MEDS: ELIQUIS 2.5 MG PO ×2 (09:07→19:58)
[2025-04-03] MEDS: MUCINEX 600 MG PO ×2 (09:07→19:58)
[2025-04-03] MEDS: PROTONIX 40 MG PO (09:07)
[2025-04-03] MEDS: SENOKOT PO (09:08)
[2025-04-03] MEDS: CARDIZEM CD 120 MG PO (09:12)
[2025-04-03] MEDS: LIDOCAINE 4% PATCH TOPICAL (10:43)
[2025-04-03 10:52] VITALS: BP 132/93
[2025-04-03] MEDS: LOPRESSOR 5 MG IV (11:05)
[2025-04-03] MEDS: LIDOCAINE 4% PATCH 1 PATCH TOPICAL (11:07)
--- NOTE | 2025-04-03 11:43 | PTCARENOTE ---
Assumed care of pt from night RN. AAOx3. OHKAY OWINGEH. x1 assist OOB with RW to chair. Afib on tele, HR 80s-120s. SpO2 94% on room air. VSS. Pt endorsing 8/10 aching chest pain after eating. EKG obtained, reading Afib RVR with HR 120s. BP 132/93. PRN IV
metop given (see MAR). HR now 70s-80s. Chest pain resolved. Executive Chef Assistant aware. Maalox ordered for indigestion. Pt remains OOB to chair at this time, call shields in reach. Assisted with oral hygiene. Incontinence care provided.
[2025-04-03] MEDS: DELTASONE 40 MG PO (13:09)
[2025-04-03] MEDS: SENOKOT-S 1 TABLET PO (13:09)
[2025-04-03] MEDS: ROCEPHIN 1000 MG IV (13:10)
[2025-04-03] MEDS: STERILE WATER FOR INJECTION 10 ML IV (13:10)
--- NOTE | 2025-04-03 13:10 | W.PN.CARDCBS ---
Addendum entered and electronically signed by Isrrael Conn DO 04/03/25 14:07:
I saw and examined the patient.
The Boiler Repair Supervisor's note was reviewed and I agree with the note.
Comment:
Plan:
Increase amiodarone to 200 mg TID for better HR control
QTc stable with amiodarone.
Cont Cardizem CD for rate control. She did receive some IV lopressor this am for better HR control.
Hold lasix and losartan for now and monitor cr as it is rising.
Resume low dose Lasix once cr improved.
PT/OT
Original Note:
Today's Communication / Plan
-
amiodarone 200mg TID
follow QTC by EKG
holding additional lasix/losartan for now with bump in Cr
PT/OT
bowel regimen
Impression / Plan
-
PCP: Dr. Kristal Flores
Primary Hoeing Row Boss: initially seen by Dr. Shantal Mercado
Assessment:
Presentation with hypotension, tachycardia
Atrial fibrillation diagnosed 03/06/25, now with recurrence
Admission [facility] for hematuria, urinary retention, afib, abd pain 03/06-03/16/25
Moderate to severe MR
Severe TR
HTN
COPD
Active smoker
Hypoalbuminemia
DNR
ECHO 03/07/25: EF 64%, aortic sclerosis, dense MAC, possible posterior MVP, moderate to severe MR, severe TR, PAP 61 mmHg
Plan:
-Patient with recent admission for new diagnosis afib, hematuria and urinary retention presents back due to recurrence of arrhythmia
-reports breathing is much improved today
-main complaint is constipation this AM.
-also reported some chest discomfort which occurred as eating breakfast. EKG stable. resolved on own. will follow
-HRs were elevated this AM. improved s/p dose of IV lopressor. amiodarone increased to 200mg TID. follow QTC by EKG
-suspect mod to severe MR contributing to arrhythmia. plan for conservative mgmt of valvular disease
-continue eliquis 2.5mg BID
-recent echo with results as above
-TSH WNL
-proBNP elevated at 3600 however weight down compared to last admission (75 lbs!) and CXR without evidence of acute CHF. not requiring supp O2. hesitant to aggressively diurese further. lasix and losartan now on hold as Cr up from 0.9 to 1.4 on 04/03
-dietary consultation given cachexia
-PT/OT evals
-d/w nursing
Progress Note - Hoeing Row Boss
Subjective
Date of Service: April 03, 2025
reports constipation. believes chest discomfort earlier in AM was indigestion, now resolved. breathing improved today
Objective
Labs:
04/03/25 03:38
04/03/25 03:38
Labs
Hgb 12.5 g/dL (12.0-16.0) 04/03/25 03:38
Hct 38.4 % (37.0-47.0) 04/03/25 03:38
Plt Count 255 10^3/uL (130-400) 04/03/25 03:38
Sodium 132 mmol/L (135-145) L 04/03/25 03:38
Potassium 4.5 mmol/L (3.5-5.1) 04/03/25 03:38
BUN 39 mg/dl (7-17) H 04/03/25 03:38
Creatinine 1.4 mg/dL (0.6-1.0) H 04/03/25 03:38
Glucose 127 mg/dl (70-99) H 04/03/25 03:38
Troponins
04/01/25
14:35
Troponin I 0.028
Vital Signs and I&O:
Vital Signs
Temp Pulse Resp BP Pulse Ox
97.5 F 116 20 132/93 94
04/03/25 12:21 04/03/25 11:05 04/03/25 11:15 04/03/25 11:05 04/03/25 11:15
Vital Signs
Temp Pulse Resp BP Pulse Ox
97.5 F 116 20 132/93 94
04/03/25 12:21 04/03/25 11:05 04/03/25 11:15 04/03/25 11:05 04/03/25 11:15
Intake & Output
04/01/25 04/02/25 04/03/25 04/04/25
07:59 07:59 07:59 07:59
Intake Total 240 / 240 770 / 770
Output Total 300 / 300
Balance 240 / 240 470 / 470
Physical Exam
Physical Exam
GEN: No distress, awake, alert, oriented x3. frail, cachectic
HEENT: supple, anicteric, mmm, eomi
LUNGS: CTA B/L, no wheezes/rales
CV: Irreg, S1/S2, 2/6 murmur
ABD: soft, BS+, NT/ND
EXT: No cyanosis, clubbing, edema
NEURO: Gross non-focal
SKIN: Warm, pink, dry. No rash
--- NOTE | 2025-04-03 15:04 | CM ---
dc plans remain back to [facility] for rehab (she has a bed hold) when medically stable.
[2025-04-03 15:25] VITALS: BP 117/94
[2025-04-03 18:47] VITALS: BP 115/66
[2025-04-03] MEDS: ATIVAN 0.5 MG PO (20:00)
[2025-04-03] MEDS: REMOVE LIDOCAINE PATCH 1 PATCH REMOVE (20:20)
[2025-04-03 22:28] VITALS: BP 105/60
[2025-04-03] MEDS: COLACE 200 MG PO (22:35)
--- NOTE | 2025-04-03 23:07 | PTCARENOTE ---
Addendum entered by Ginny Matson RN 04/04/25 00:47:
Saved VS from 1200 on.
Original Note:
Received pt at change of shift resting in bed. Afib/flutter on tele, HR 70's-80's. pt denies any CP or SOB at this time. PRN Ativan administered per pt request for anxiety--see MAR. Fall risk precautions maintained, encouraged pt to call RN for
assistance ambulating. pt calls appropriately. Call shields within reach.
[2025-04-04] VITALS (8 sets, daily range): BP systolic 102–156; BP diastolic 59–102; PULSE 105–106; O2SAT 98; BMI 14.5
[2025-04-04 05:41] LABS: Hematocrit 34.8 % (37.0-47.0); Hemoglobin 11.6 g/dL (12.0-16.0); Mean Corp Hgb Conc. 33.3 g/dL (33.0-37.0); Mean Corpuscular Volume 84.3 fL (81.0-99.0); Platelet Count 217 10^3/uL (130-400); Red Cell Dist. Width 17.8 % (11.5-14.5)
[2025-04-04 05:58] LABS: Blood Urea Nitrogen 48 mg/dl (7-17); Calcium 8.7 mg/dl (8.4-10.2); Carbon Dioxide 24 mmol/L (22-30); Chloride 104 mmol/L (98-107); Estimated Creatinine Clearance 18 ml/min; Glucose 96 mg/dl (70-99); Potassium 4.6 mmol/L (3.5-5.1); Sodium 131 mmol/L (135-145); eGFR 43.81
--- NOTE | 2025-04-04 07:39 | W.PN.HOSP.TC ---
Addendum entered and electronically signed by Marianela Meade MD 04/04/25 13:53:
Attending�addendum:
I saw and evaluated the patient independently. I reviewed and discussed the resident�s note and agree with findings and plan as documented in the resident�s note.� Patient seen and examined at bedside, denies any chest pain , shortness of breath
Improved, no abdominal pain, no nausea, no vomiting, no diarrhea or constipation.
Physical�exam:
GENERAL : Patient is awake, alert, oriented x3
HEENT: Nonicteric sclerae, PERRLA, EOMI. Oropharynx clear. Moist mucous membranes. Conjunctivae appear well perfused.
CHEST: Chest wall is nontender.
HEART: irregular rate and rhythm without murmurs.
LUNGS: Clear to auscultation bilaterally.
ABDOMEN: Soft, positive bowel sounds, nontender, no organomegaly.
RECTAL: Deferred.
MUSCLES/EXTREMITIES: No abnormal range of motion, no swelling.SKIN: No rash, no excessive bruising, petechiae, or purpura.
NEUROLOGIC: Cranial nerves II-XII intact without motor/sensory deficit.
�
Assessment/plan:
�Atrial flutter with RVR.
Heart rate improved with fluids.
Continue home meds in form of amiodarone, Cardizem, Eliquis.
As needed Lopressor.
Cardiology consulted, reloading amiodarone
COPD exacerbation, mild.
Chronic bronchitis.
Steroid.
Breathing treatment
Shortness of breath improved
Urine retention.
Torres catheter removed
Voiding trial
Oral thrush.
Continue nystatin.
Hold fluconazole
Hypertension.
Continue home meds
Pressure�� injury stage [Present on admission Sacrum] Stage 2�
�Severe protein calorie malnutrition of chronic illness
DVT prophylaxis: Eliquis
Diet: cardiac
Total time spent on today�s encounter was 55 minutes which included time spent in counseling the patient/family regarding diagnosis and treatment plan as listed above, goals of care, and symptom management. Case was discussed with nursing staff,
specialists, and care coordinators/case management. All labs and imaging personally reviewed by me. Remainder the time spent in detailed review of previous records, lab data, imaging, and other medical provider documentation.
Original Note:
Today's Communication/Plan
-
Hold lasix for today
Continue home meds for HR control
Montior HR, QTc
Assessment / Plan
Assessment / Plan
IMPRESSION
A 89 y/o F with a pmh of atrial fibrillation, COPD not on home O2, hypertension, anxiety presenting to the ED with difficulty breathing and feeling fatigue. At ED her BP and HR was low. She received IVF and being admitted to the IVU.
PLAN:
Paroxysmal Atrial flutter with RVR
Hypotension corrected with IV Fluid repletion
-Initially her BP was 89/49, HR 52
-Consult Cardiology, input appreciated
-Continue home meds- Eliquis, Amiodarone, Diltiazem
-Amio 200mg PO TID--> HR improved-->lower dose to Amio QD
-Follow QTc on ECG, if stable d/c back to rehab in
-Mod to severe MR likely contributing to aFib
-Lopressor 5mg Q6h, prn if HR>110, hold if SBP <100
-TSH 1.23- WNL
-monitor HR, BP
-PT/OT eval
ECG 04/01/2025
-ATRIAL FLUTTER WITH VARIABLE A-V BLOCK
-ANTEROSEPTAL INFARCT
Acute COPD exacerbation, mild vs Possible chronic bronchitis
-Dyspnea, no change in coughing/sputum
-Dexamethasone 6mg Q12h IV #D1 - 04/03 switch to Prednisone PO 40mg #D2 taper 10mg every 3 days
-Duoneb prn
-Covid/Flu test- neg
Acute Kidney Injury
-?Prerenal [place] , BUN:Cr 27.8
-Cr 1.4 from 0.9 on admission
-Urine Output 300ml
-Hold lasix and losartan for now and monitor Cr
-Cr1.4-->Cr 1.2--> hold lasix--> 04/05 resume lasix if Cr continues to improve
Chronic Urinary Torres catheter Use, asymtpomatic UTI
-It was rec at last adission 03/06 to due to urinary retention
-UA (+)
-Urine Cx-gram neg bacilli - pending
-Voiding trial- d/c torres, bladder scan
-start empiric ceftriaxone 1g QD #D2
Chronic HFpEF
-euvolemic
-pBNP 3600
-Chest xray no evidence of acute CHF
-Continue Furosemide PO QD - d/c
-daily weight 34.2kg
Echo 03/07/2025
-LVEF 64%
-RV size normal. Aortic valve sclerosis w/o stenosis
-Dense mitral calcification. leaflet MVP. Moderate to severe mitral Regurgitation. Severe tricuspid regurgitation. PAP 61mmhg, RAP 8mmhg
Thrush
-Fluconasole DC due to interaction with Amio
-Continue Nystatin suspension 5ml
Essential Hypertension
-Continue Losartan
Hypokalemia
-K 3.4- repleted K4.4
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
-03/07 44kg--> 04/01 35.8--> 8kg weight loss in a month
-BMI 14.7
Essential Hypertension
-Continue Losartan
Constipation
-senokat
Anxiety
-Continue Lorazepam
Sacral wound
-Pressure ulcer stage 2 (present on admission)
-Continue wound care
Hiatal hernia
-Continue PPI
Nicotine dependence, former smoker
-Continue daily nicotine patch
DVT prophylaxis: Eliquis
DNR
Anticipated Discharge: Within 24 hours
Subjective/Interval History
-
Date of Service: April 04, 2025
She is sitting on the chair eating her breakfast. She still feels tired but overall she is feeling better. Yesterday she had indigestion after eating food. She denies SOB, CP, palpitations. She has been urinating without any pain.
Objective Data
-
Labs:
Laboratory Results
04/04/25
04:50
WBC 12.3 H
Hgb 11.6 L
Hct 34.8 L
Plt Count 217
Sodium 131 L
Potassium 4.6
Chloride 104
Carbon Dioxide 24
BUN 48 H
Creatinine 1.2 H
Glucose 96
Calcium 8.7
Vital Signs:
Vital Signs
Temp Pulse Resp BP Pulse Ox
97.5 F 86 18 138/82 97
04/04/25 04:42 04/04/25 06:00 04/04/25 04:42 04/04/25 04:42 04/04/25 04:42
I&O
04/03/25 04/04/25 04/05/25
06:59 06:59 06:59
Intake Total 770 / 770 240 / 240
Output Total 300 / 300 150 / 150
Balance 470 / 470 90 / 90
Review of Systems
-
History Source: Patient
Constitutional: Reports Fatigue
EENT: Reports No Symptoms Reported
Respiratory: Reports No Symptoms
Cardiac: Reports No Symptoms
Abdomen/GI: Reports Indigestion
Breast: Reports No Symptoms
Genitourinary: Reports No Symptoms
Musculoskeletal: Reports Muscle Pain (chronic back pain because of bedsore on her sacrum)
Skin: Reports No Symptoms
Neuro: Reports No Symptoms
Endocrine: Reports No Symptoms
Hematologic / Lymphatic: Reports No Symptoms
Allergy / Immunology: Reports No Symptoms
Physical Exam
-
General: Comfortable and Cachectic
HEENT: Normocephalic, Atraumatic, Thrush and No Ptosis
Respiratory: Clear to Auscultation and Decreased Breath Sounds
Cardiac: S1/S2 and Irregular Rhythm
Breast: Deferred by me
GI: Soft, Nontender, Nondistended and Normal Bowel Sounds
Rectal: Deferred by Provider
Genito-urinary: Deferred by me
Musculoskeletal: No Clubbing, No Cyanosis and No Edema
Skin: Warm, Dry, Ulcers (arterial ulcers on toes) and Decubitus Ulcers (sacrum)
Neuro: AO x 3, No Motor Deficits and No Sensory Deficits
Hematologic / Lymphatic: No Lymphadenopathy
Psych: Calm
--- NOTE | 2025-04-04 08:28 | W.PN.CARDCBS ---
Today's Communication / Plan
-
Continues to improve.
HR improved on increased Amiodarone. Will lower dose to once daily and if QTc remains stable over next 24 hrs, then likely can d/c back to rehab 04/05 from cardiac standpoint.
Cont Cardizem for HR control
Cont Eliquis 2.5 mg BID
TSH was normal
Cont to hold lasix, cr improving
Likely resume lasix 04/05 if continues to improve.
Her weight remains stable and is down from her last admission.
Impression / Plan
-
.
PCP: Dr. Kristal Flores
Primary Outside Industrial Sales Representative: initially seen by Dr. Shantal Mercado
Impression:
Presentation with hypotension, tachycardia
Atrial fibrillation diagnosed 03/06/25, now with recurrence
Admission [facility] for hematuria, urinary retention, afib, abd pain 03/06-03/16/25
Moderate to severe MR
Severe TR
HTN
COPD
Active smoker
Hypoalbuminemia
DNR
ECHO 03/07/25: EF 64%, aortic sclerosis, dense MAC, possible posterior MVP, moderate to severe MR, severe TR, PAP 61 mmHg
Plan:
-Patient with recent admission for new diagnosis afib, hematuria and urinary retention presents back due to recurrence of arrhythmia
Continues to improve. No recurrent chest pain.
HR improved on increased Amiodarone. Will lower dose to 200 mg once daily and if QTc remains stable over next 24 hrs, then likely can d/c back to rehab 04/05 from cardiac standpoint.
Cont Cardizem for HR control
Cont Eliquis 2.5 mg BID
TSH was normal
Cont to hold lasix, cr improving
Likely resume lasix 04/05 if continues to improve.
Her weight remains stable and is down from her last admission.
Continue PT/OT.
Progress Note - Outside Industrial Sales Representative
Subjective
Date of Service: April 04, 2025
Patient seen and examined. No chest pain or shortness of breath.
Objective
Labs:
04/04/25 04:50
04/04/25 04:50
Labs
Hgb 11.6 g/dL (12.0-16.0) L 04/04/25 04:50
Hct 34.8 % (37.0-47.0) L 04/04/25 04:50
Plt Count 217 10^3/uL (130-400) 04/04/25 04:50
Sodium 131 mmol/L (135-145) L 04/04/25 04:50
Potassium 4.6 mmol/L (3.5-5.1) 04/04/25 04:50
BUN 48 mg/dl (7-17) H 04/04/25 04:50
Creatinine 1.2 mg/dL (0.6-1.0) H 04/04/25 04:50
Glucose 96 mg/dl (70-99) 04/04/25 04:50
Troponins
04/01/25
14:35
Troponin I 0.028
Vital Signs and I&O:
Vital Signs
Temp Pulse Resp BP Pulse Ox
97.5 F 86 18 138/82 97
04/04/25 04:42 04/04/25 06:00 04/04/25 04:42 04/04/25 04:42 04/04/25 04:42
Vital Signs
Temp Pulse Resp BP Pulse Ox
97.5 F 86 18 138/82 97
04/04/25 04:42 04/04/25 06:00 04/04/25 04:42 04/04/25 04:42 04/04/25 04:42
Intake & Output
04/02/25 04/03/25 04/04/25 04/05/25
06:59 06:59 06:59 06:59
Intake Total 240 / 240 770 / 770 240 / 240
Output Total 300 / 300 150 / 150
Balance 240 / 240 470 / 470 90 / 90
Physical Exam
Physical Exam
General: No acute distress, AAOX3, cachectic
Neck: Negative JVD
Heart: Irregularly irregular, Negative S3 positive S1/S2, Negative S4, No murmur
Lungs: CTA b/l, negative wheezes/rales/rhonchi
Abd: Positive BS, NT/ND, neg rebound/rigidity/guarding
Ext: Negative cyanosis/clubbing/edema
Neuro: nonfocal
[2025-04-04] MEDS: PACERONE 200 MG PO (08:54)
[2025-04-04] MEDS: PROTONIX 40 MG PO (08:54)
[2025-04-04] MEDS: MUCINEX 600 MG PO ×2 (08:54→20:51)
[2025-04-04] MEDS: SENOKOT 8.6 MG PO ×2 (08:55→20:51)
[2025-04-04] MEDS: ELIQUIS 2.5 MG PO ×2 (08:55→20:51)
[2025-04-04] MEDS: NICODERM TRANSDERMAL 7 MG TRANSDERM (08:56)
[2025-04-04] MEDS: LIDOCAINE 4% PATCH 1 PATCH TOPICAL (09:02)
[2025-04-04] MEDS: DELTASONE 40 MG PO (09:04)
[2025-04-04] MEDS: MYCOSTATIN ORAL SUSPENSION 5 ML PO ×4 (09:04→21:08)
[2025-04-04] MEDS: PACERONE PO (09:18)
[2025-04-04] MEDS: CARDIZEM CD 120 MG PO (09:51)
[2025-04-04] MEDS: STERILE WATER FOR INJECTION 10 ML IV (15:28)
[2025-04-04] MEDS: ROCEPHIN 1000 MG IV (15:28)
[2025-04-04] MEDS: COLACE 200 MG PO (21:08)
[2025-04-04] MEDS: REMOVE LIDOCAINE PATCH 1 PATCH REMOVE (21:08)
[2025-04-04] MEDS: ATIVAN 0.5 MG PO (21:15)
--- NOTE | 2025-04-04 22:32 | PTCARENOTE ---
Received pt at change of shift resting in bed. Afib/flutter on tele, HR 70's-80's. PRN Ativan administered per pt request for anxiety--see JUL. pt ambulating w/ assistance x1 w/ rw to bedside commode. Fall risk precautions maintained, encouraged pt
to call RN for assistance ambulating. pt calls appropriately. Call shields within reach.
[2025-04-05 02:20] VITALS: BP 113/76
[2025-04-05 03:00] LABS: Hematocrit 37.2 % (37.0-47.0); Hemoglobin 12.5 g/dL (12.0-16.0); Mean Corp Hgb Conc. 33.6 g/dL (33.0-37.0); Mean Corpuscular Volume 85.5 fL (81.0-99.0); Platelet Count 219 10^3/uL (130-400); Red Cell Dist. Width 17.6 % (11.5-14.5)
[2025-04-05 03:24] LABS: Blood Urea Nitrogen 50 mg/dl (7-17); Calcium 9.1 mg/dl (8.4-10.2); Carbon Dioxide 24 mmol/L (22-30); Chloride 103 mmol/L (98-107); Estimated Creatinine Clearance 17 ml/min; Glucose 106 mg/dl (70-99); Magnesium 2.2 mg/dl (1.6-2.3); Potassium 5.1 mmol/L (3.5-5.1); Sodium 131 mmol/L (135-145); eGFR 39.80
[2025-04-05 06:00] VITALS: BMI 14.5
--- NOTE | 2025-04-05 07:09 | W.PN.HOSP.TC ---
Addendum entered and electronically signed by Marianela Meade MD 04/05/25 14:31:
Attending�addendum:
I saw and evaluated the patient independently. I reviewed and discussed the resident�s note and agree with findings and plan as documented in the resident�s note.� Patient seen and examined at bedside, denies any chest pain , shortness of breath
Improved, no abdominal pain, no nausea, no vomiting, no diarrhea or constipation.
Will be discharged to rehab today.
Physical�exam:
GENERAL : Patient is awake, alert, oriented x3
HEENT: Nonicteric sclerae, PERRLA, EOMI. Oropharynx clear. Moist mucous membranes. Conjunctivae appear well perfused.
CHEST: Chest wall is nontender.
HEART: irregular rate and rhythm without murmurs.
LUNGS: Clear to auscultation bilaterally.
ABDOMEN: Soft, positive bowel sounds, nontender, no organomegaly.
RECTAL: Deferred.
MUSCLES/EXTREMITIES: No abnormal range of motion, no swelling.SKIN: No rash, no excessive bruising, petechiae, or purpura.
NEUROLOGIC: Cranial nerves II-XII intact without motor/sensory deficit.
�
Assessment/plan:
�Atrial flutter with RVR.
Heart rate improved with fluids.
Continue home meds in form of amiodarone, Cardizem, Eliquis.
As needed Lopressor.
Cardiology consulted, reloading amiodarone
COPD exacerbation, mild.
Chronic bronchitis.
Steroid.
Breathing treatment
Shortness of breath improved
Urine retention.
Torres catheter removed
Voiding trial
Oral thrush.
Continue nystatin.
Hold fluconazole
Dysphagia.
Appreciate speech input
Hypertension.
Continue home meds
Asymptomatic UTI which related to to Chronic urinary torres.
Pressure�� injury stage [Present on admission Sacrum] Stage 2�
�Severe protein calorie malnutrition of chronic illness
DVT prophylaxis: Eliquis
Diet: cardiac
Disposition: Discharge to rehab today
Total time spent on today�s encounter was 55 minutes which included time spent in counseling the patient/family regarding diagnosis and treatment plan as listed above, goals of care, and symptom management. Case was discussed with nursing staff,
specialists, and care coordinators/case management. All labs and imaging personally reviewed by me. Remainder the time spent in detailed review of previous records, lab data, imaging, and other medical provider documentation.
Original Note:
Today's Communication/Plan
-
VSE for dysphagia
Follow cards recs - hold lasix
Discharge today-bmp in 3 days
Assessment / Plan
Assessment / Plan
IMPRESSION
A 89 y/o F with a pmh of atrial fibrillation, COPD not on home O2, hypertension, anxiety presenting to the ED with difficulty breathing and feeling fatigue. At ED her BP and HR was low. She received IVF and being admitted to the IVU.
PLAN:
Paroxysmal Atrial flutter with RVR
Hypotension corrected with IV Fluid repletion
-Initially her BP was 89/49, HR 52
-Consult Cardiology, input appreciated
-Continue home meds- Eliquis, Amiodarone, Diltiazem
-Amio 200mg PO TID--> HR improved-->lower dose to Amio QD
-Follow QTc on ECG- stable 320/409 (previous 400/484ms)
-Mod to severe MR likely contributing to aFib
-Lopressor 5mg Q6h, prn if HR>110, hold if SBP <100
-TSH 1.23- WNL
-monitor HR, BP
-PT/OT eval - SNF
Dysphagia
-Speech eval
-order VSE
ECG 04/01/2025
-ATRIAL FLUTTER WITH VARIABLE A-V BLOCK
-ANTEROSEPTAL INFARCT
Acute COPD exacerbation, mild vs Possible chronic bronchitis
-Dyspnea, no change in coughing/sputum
-Dexamethasone 6mg Q12h IV #D1 - 04/03 switch to Prednisone PO 40mg #D3 taper 10mg every 3 days
-Duoneb prn
-Covid/Flu test- neg
Acute Kidney Injury
-?Prerenal AK , BUN:Cr 27.8
-Cr 1.3 from 0.9 on admission - hold lasix
-Urine Output 300ml
-Hold lasix and losartan for now and monitor Cr
Asymptomatic UTI is likely due to Chronic urinary torres catheter Use
-It was rec at last adission 03/06 to due to urinary retention
-UA (+)
-Urine Cx-gram neg bacilli - klebsiella
-Voiding trial- d/c torres, bladder scan
-start empiric ceftriaxone 1g QD #D3 - at discharge transition to 300mg Cefdinir PO BID for 7 days
Chronic HFpEF
-euvolemic
-pBNP 3600
-Chest xray no evidence of acute CHF
-Continue Furosemide PO QD - d/c
-daily weight 34.2kg
Echo 03/07/2025
-LVEF 64%
-RV size normal. Aortic valve sclerosis w/o stenosis
-Dense mitral calcification. leaflet MVP. Moderate to severe mitral Regurgitation. Severe tricuspid regurgitation. PAP 61mmhg, RAP 8mmhg
Thrush
-Fluconasole DC due to interaction with Amio
-Continue Nystatin suspension 5ml
Essential Hypertension
-Continue Losartan
Hypokalemia
-K 3.4- repleted K4.4
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
-03/07 44kg--> 04/01 35.8--> 8kg weight loss in a month
-BMI 14.7
Essential Hypertension
-Continue Losartan
Constipation
-senokat
Anxiety
-Continue Lorazepam
Sacral wound
-Pressure ulcer stage 2 (present on admission)
-Continue wound care
Hiatal hernia
-Continue PPI
Nicotine dependence, former smoker
-Continue daily nicotine patch
DVT prophylaxis: Eliquis
DNR
Anticipated Discharge: Today
Subjective/Interval History
-
Date of Service: April 05, 2025
She is sitting on the chair eating her breakfast potatoes. She is having difficulty with swallowing it and coughing. She feels tired. She denies CP, SOB, Palpitations. She has been urinating.
Objective Data
-
Labs:
Laboratory Results
04/05/25
02:50
WBC 12.9 H
Hgb 12.5
Hct 37.2
Plt Count 219
Sodium 131 L
Potassium 5.1
Chloride 103
Carbon Dioxide 24
BUN 50 H
Creatinine 1.3 H
Glucose 106 H
Calcium 9.1
Vital Signs:
Vital Signs
Temp Pulse Resp BP Pulse Ox
97.5 F 83 18 113/76 97
04/05/25 02:20 04/05/25 06:00 04/05/25 02:20 04/05/25 02:20 04/05/25 02:20
I&O
04/04/25 04/05/25 04/06/25
06:59 06:59 06:59
Intake Total 240 / 240
Output Total 150 / 150 225 / 225
Balance 90 / 90 -225 / -225
Review of Systems
-
History Source: Patient
Constitutional: Reports Fatigue
EENT: Reports No Symptoms Reported and Other (difficulty swallowing her food)
Respiratory: Reports No Symptoms
Cardiac: Reports No Symptoms
Abdomen/GI: Reports No Symptoms
Breast: Reports No Symptoms
Genitourinary: Reports No Symptoms
Musculoskeletal: Reports Muscle Pain (chronic back pain because of bedsore on her sacrum)
Skin: Reports No Symptoms
Neuro: Reports No Symptoms
Endocrine: Reports No Symptoms
Hematologic / Lymphatic: Reports No Symptoms
Allergy / Immunology: Reports No Symptoms
Physical Exam
-
General: Comfortable and Cachectic
HEENT: Normocephalic, Atraumatic, Thrush and No Ptosis
Respiratory: Clear to Auscultation and Decreased Breath Sounds
Cardiac: S1/S2 and Irregular Rhythm
Breast: Deferred by me
GI: Soft, Nontender, Nondistended and Normal Bowel Sounds
Rectal: Deferred by Provider
Genito-urinary: Deferred by me
Musculoskeletal: No Clubbing, No Cyanosis and No Edema
Skin: Warm, Dry, Ulcers (arterial ulcers on toes) and Decubitus Ulcers (sacrum)
Neuro: AO x 3, No Motor Deficits and No Sensory Deficits
Hematologic / Lymphatic: No Lymphadenopathy
Psych: Calm
[2025-04-05 08:00] VITALS: BP 140/89
--- NOTE | 2025-04-05 08:00 | PTCARENOTE ---
pt received from previous RN, oriented, [place]. Aflutter on the monitor, HR 80-90s. SBP 140s. weakly palpable DP pulses, palpable radials. pt on RA, 98% POX. HOLM. lungs diminished. +frequent [employer] cough. pt voids on BSC, x1 assist w/ RW. pt states has had
BM, 'but could go more'. PRN Miralax given. preventative foam dressings on spine. Sacral foam dressing in place. b/l heel foams in place, blanchable under dressing. blood blisters on top of big toes, skin prep applied as ordered. PIV. see worklist
for VS, I&O, and assessment.
--- NOTE | 2025-04-05 08:51 | PN.CDI ---
CDI
- -
CDI:
Physician Documentation Request
Admit Date: 04/01/25 19:17
Dear Doctor Sana and Dr. Meade,
Please review the following and provide your response in the progress notes.
Clinical Indicators:
PN, 04/03
#Chronic Urinary Torres catheter Use, asymtpomatic UTI
#...-It was rec at last adission 03/06 to due to urinary retention
#...-UA (+)
#...-Urine Cx-gram neg bacilli - pending
#...-Voiding trial- d/c torres, bladder scan
#...-start empiric ceftriaxone 1g QD #D2
PN, 04/04
#Urine retention.
#...Torres catheter removed
#...Voiding trial
Based on the above and your clinical assessment, please clarify the relationship, if any, between these conditions:
Yes, Asymptomatic UTI is enhanced by/contributed to/related to/associated with/due to Chronic urinary torres.
No, Asymptomatic UTI is not enhanced by/contributed to/related to/associated with/due to chronic urinary torres but it is due to ___. (Please specify)
Other (please specify)
Use of terms such as suspected, likely, concern for, or probable (associated with a specific diagnosis that is being evaluated, monitored, or treated as if it exists) are acceptable and can be coded in the inpatient setting, when documented at the
time of discharge.
Thank you,
Virgie Kim [employer]
CDI Specialist
Pleas contact via tiger text
Please use your independent medical judgment in providing your response.
[2025-04-05] MEDS: CARDIZEM CD 120 MG PO (09:02)
[2025-04-05] MEDS: PROTONIX 40 MG PO (09:02)
[2025-04-05] MEDS: MUCINEX 600 MG PO (09:03)
[2025-04-05] MEDS: DELTASONE 40 MG PO (09:03)
[2025-04-05] MEDS: PACERONE 200 MG PO (09:03)
[2025-04-05] MEDS: ELIQUIS 2.5 MG PO (09:03)
[2025-04-05] MEDS: SENOKOT 8.6 MG PO (09:03)
[2025-04-05] MEDS: MYCOSTATIN ORAL SUSPENSION 5 ML PO ×3 (09:04→17:00)
[2025-04-05] MEDS: LIDOCAINE 4% PATCH 1 PATCH TOPICAL (09:06)
[2025-04-05] MEDS: NICODERM TRANSDERMAL 7 MG TRANSDERM (09:07)
[2025-04-05] MEDS: MIRALAX 17 GRAMS PO (09:12)
--- NOTE | 2025-04-05 10:40 | W.PN.CARDCBS ---
Addendum entered and electronically signed by Hamilton Shen DO 04/05/25 11:23:
I saw and examined the patient.
The Des[employer] Cler[employer] Supervisor's note was reviewed and I agree with the note.
Comment:
Patient seen and examined this morning. No acute events overnight. Patient resting comfortably in chair. Patient denies chest pain, shortness of breath, palpitations. Patient notes fatigue but denies any focal deficits.
GENERAL: no acute distress, frail, cachectic
EYE: sclera anicteric
NECK: Supple, no JVD, no carotid bruit appreciated
ENT: normal nose, moist mucosal membranes
CARDIAC: Irregularly irregular, +S1/S2, 2/6 systolic murmur; no rubs, or gallops
CHEST/PULMONARY: Normal effort, clear breath sounds
ABDOMEN: Soft, without focal tenderness or distention
NEUROLOGICAL: Alert and oriented x3
SKIN: Warm and dry, no rash, no edema
PSYCH: Normal and appropriate interaction.
Telemetry shows AF
EKG 96 bpm QT/QTc remained stable 320/409 ms(Previous 400/484 ms)
A/P as below
Patient appears euvolemic on examination. Renal elevated but improving. Will continue to hold diuretic therapy with plan to BMP in 3 days. Can then notify office for reinitiation of medical therapy with subsequent repeat testing.
Rate controlled atrial fibrillation while on amiodarone, Cardizem. Continue Eliquis 2.5 mg twice daily for stroke risk reduction
Patient with acute on chronic COPD, management primary service
No further recommendations from CV standpoint, will sign off. Can likely go back to rehab. Please call back with questions
Original Note:
Today's Communication / Plan
-
-cont to hold Lasix
-check f/u BMP 3 days after discharge
-rates remain controlled in afib
Impression / Plan
-
.
PCP: Dr. Kristal Flores
Primary [employer]: initially seen by Dr. Shantal Mercado
Impression:
Presentation with hypotension, tachycardia
Atrial fibrillation diagnosed 03/06/25, now with recurrence
Admission [facility] for hematuria, urinary retention, afib, abd pain 03/06-03/16/25
Moderate to severe MR
Severe TR
HTN
COPD
Active smoker
Hypoalbuminemia
DNR
ECHO 03/07/25: EF 64%, aortic sclerosis, dense MAC, possible posterior MVP, moderate to severe MR, severe TR, PAP 61 mmHg
Plan:
-Patient with recent admission for new diagnosis afib, hematuria and urinary retention presents back to ED 04/01/2025 due to recurrence of arrhythmia
Continues to improve. No recurrent chest pain.
HR improved/stable on Amiodarone 200 mg once daily. QTc stable at 409 msec.
Cont Cardizem 120 mg daily for HR control
telem personally reviewed afib 90-110 bpm
Cont Eliquis 2.5 mg BID
TSH was normal
Cont to hold lasix and Losartan, cr improving but still above baseline. Peak creat 1.6, 1.3 04/05, baseline 0.9-1.1
Home dose Lasix 20 mg daily
Home dose Losartan 50 mg daily
Her weight remains stable
Continue PT/OT
she reports PT was being held at [facility] at times due to lower BPs. When Losartan restarted may need to start at lower dose.
check BMP within 3-4 days of discharge and resume Lasix once creat at baseline.
Progress Note - [employer]
Subjective
Date of Service: April 05, 2025
c/o weakness
no palps, SOB, lightheadedness
Objective
Labs:
04/05/25 02:50
04/05/25 02:50
Labs
Hgb 12.5 g/dL (12.0-16.0) 04/05/25 02:50
Hct 37.2 % (37.0-47.0) 04/05/25 02:50
Plt Count 219 10^3/uL (130-400) 04/05/25 02:50
Sodium 131 mmol/L (135-145) L 04/05/25 02:50
Potassium 5.1 mmol/L (3.5-5.1) 04/05/25 02:50
BUN 50 mg/dl (7-17) H 04/05/25 02:50
Creatinine 1.3 mg/dL (0.6-1.0) H 04/05/25 02:50
Glucose 106 mg/dl (70-99) H 04/05/25 02:50
Vital Signs and I&O:
Vital Signs
Temp Pulse Resp BP Pulse Ox
97.9 F 97 18 140/89 98
04/05/25 08:10 04/05/25 10:00 04/05/25 08:10 04/05/25 09:02 04/05/25 08:10
Vital Signs
Temp Pulse Resp BP Pulse Ox
97.9 F 97 18 140/89 98
04/05/25 08:10 04/05/25 10:00 04/05/25 08:10 04/05/25 09:02 04/05/25 08:10
Intake & Output
04/03/25 04/04/25 04/05/25 04/06/25
06:59 06:59 06:59 06:59
Intake Total 770 / 770 240 / 240
Output Total 300 / 300 150 / 150 225 / 225 150 / 150
Balance 470 / 470 90 / 90 -225 / -225 -150 / -150
Physical Exam
Physical Exam
GEN: No distress, awake, Ox3
HEENT: supple, anicteric, mmm
LUNGS: CTA, no wheezes/rales
CV: irreg, irreg, 2/6 systolic murmur
ABD: soft, BS+, NT/ND
EXT: No edema
NEURO: Gross non-focal
SKIN: No rash
[2025-04-05 11:27] VITALS: BP 131/98
--- NOTE | 2025-04-05 12:39 | PTOTSP ---
Speech Therapy Swallowing Assessment
Patient with acute and chronic risk factors for dysphagia including COPD and CHF with elevated risk for aspiration given symptoms of congested breath sounds and coughing during oral intake.
Recommend
1. Continue current diet (L6/Thin Liquids).
2. VSE to objectively assess pharyngeal swallow and assist in appropriate diet modifications as needed for safety.
3. Aspiration precautions.
--- NOTE | 2025-04-05 13:12 | PTCARENOTE ---
pt sent for video swallow via stretcher w/ volunteer transport.
--- NOTE | 2025-04-05 14:38 | W.DCSUMMARY ---
Addendum entered and electronically signed by Marianela Meade MD 04/06/25 08:44:
Attending�addendum:
I saw and evaluated the patient independently. I reviewed and discussed the resident�s note and agree with findings and plan as documented in the resident�s note.� Patient seen and examined at bedside, denies any chest pain , shortness of breath
Improved, no abdominal pain, no nausea, no vomiting, no diarrhea or constipation.
Will be discharged to rehab today.
Physical�exam:
GENERAL : Patient is awake, alert, oriented x3
HEENT: Nonicteric sclerae, PERRLA, EOMI. Oropharynx clear. Moist mucous membranes. Conjunctivae appear well perfused.
CHEST: Chest wall is nontender.
HEART: irregular rate and rhythm without murmurs.
LUNGS: Clear to auscultation bilaterally.
ABDOMEN: Soft, positive bowel sounds, nontender, no organomegaly.
RECTAL: Deferred.
MUSCLES/EXTREMITIES: No abnormal range of motion, no swelling.SKIN: No rash, no excessive bruising, petechiae, or purpura.
NEUROLOGIC: Cranial nerves II-XII intact without motor/sensory deficit.
�
Assessment/plan:
�Atrial flutter with RVR.
Heart rate improved with fluids.
Continue home meds in form of amiodarone, Cardizem, Eliquis.
As needed Lopressor.
Cardiology consulted, reloading amiodarone
COPD exacerbation, mild.
Chronic bronchitis.
Steroid.
Breathing treatment
Shortness of breath improved
Urine retention.
Torres catheter removed
Voiding trial
Oral thrush.
Continue nystatin.
Hold fluconazole
Dysphagia.
Appreciate speech input
Hypertension.
Continue home meds
Asymptomatic UTI which related to to Chronic urinary torres.
Pressure�� injury stage [Present on admission Sacrum] Stage 2�
�Severe protein calorie malnutrition of chronic illness
DVT prophylaxis: Eliquis
Diet: cardiac
Disposition: Discharge to rehab today
Total time spent on today�s encounter was 40 minutes which included time spent in counseling the patient/family regarding diagnosis and treatment plan as listed above, goals of care, and symptom management. Case was discussed with nursing staff,
specialists, and care coordinators/case management. All labs and imaging personally reviewed by me. Remainder the time spent in detailed review of previous records, lab data, imaging, and other medical provider documentation.
Original Note:
Documented by User: Fahad Hood MD, Resident 04/05/25 16:34
Discharge Summary
Discharge Data
Date of Admission: 04/01/25
Date of Discharge: 04/05/25
-
Pending Results: No
Hospital Course
Discharging Physician : Dr. Fahad Hood, Dr. Marianela Meade
Disposition : [facility] / [facility]
Primary care physician : Dr. Kristal Flores
Principal Discharge diagnosis : �
Atrial flutter with RVR
mild COPD exacerbation
Dysphagia
Chronic Discharge diagnosis :
Urine retention
Oral thrush
Hypertension
Pressure injury stage Stage 2
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
Hospital Course :
Important imaging findings : Ms. Lugo is a 89 y/o F with h of hypertension, COPD with admission to the [facility] 03/06 - 03/16/2025 for hematuria, urinary retention, new onset A-fib started on amiodarone and Eliquis who was discharged to SNF at [place]
run. Went to urologist for follow-up on 04/01 and was noted to be hypotensive and tachycardic and referred back to ER. Noted to be back in atrial fibrillation. She was admitted to telemetry. Continued her home meds Eliquis, Amiodarone,
Diltiazem. Lasix and Losartan was on hold due to elevated Creatinine level.
She has oral thrush since admission discontinued her Fluconazole due to interaction with Amiodarone. She is on Nystatine.
She was started on Prednisone 40mg for mild COPD exacerbation tapering it down 10mg every 3 days.
She had UTI likely secondary to chronic urinary Torres catheter use due to urinary retention. Urine Cx was positive for Klebsiella. She was on ceftriaxone switched to cefdinir during discharge.
She was evaluated by speech therapist for mild/moderate dysphagia and ordered Video Swallow study.
Procedure findings :
Video Swallow Examination 04/05/2025
-patient presents with a mild to moderate oral/pharyngeal dysphagia characterized by reduced oral containment and oral clearance, delayed laryngeal vestibular closure and at least mild tongue base/pharyngeal weakness resulting in consistent trace
laryngeal penetration of thin liquid with one instance of trace flash aspiration of thin liquid. Use of chin tuck appeared to contribute to pyriform sinus stasis and degree and depth of airway compromise with thin liquid. Trace to mild pharyngeal
stasis cleared with secondary swallow. Trace to minimal pharyngeal stasis acoross tested consistencies. Brief lateral view of esophagus after study completed was unremarkable.
Recommend:
1. Continue Level 6 (soft and bite-sized) solids, but downgrade to mildly thick liquids.
2. Pills whole in applesauce.
3. Allow ice chips in between meals per ARHP guidelines.
4. Aspiration precautions.
5. Follow up speech therapy after discharge to assist in advancing diet as clinically indicated. Further diet modifications per treating therapist discretion based on their personal assessment and observations with patient after discharge.
Discharge Plan
-
Patient Disposition: Intermediate/SNF
Discharge Diagnosis/Procedures: Paroxysmal Atrial flutter with RVR
Hypotension
Dysphagia
Acute Chronic Obstructive Pulmonary disease exacerbation
Acute kidney injury
Urinary tract infection secondary to Chronic Torres catheter use
Chronic Heart failure
Thrush
Essential hypertension
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
Condition: Fair
Diet: Other diet
Additional Diets: soft and bite sized with mildly thickened liquids. Meds whole in applesauce. Allow ice chips after oral care per ARHP guidelines.
Activity: As tolerated
Driving Restrictions: As prior to admission
Bathing Restrictions: None
Blood Work: BMP in 3 days
Other Services: ST
Activity Restrictions/Additional Instructions:
Wound Care Instructions
Sacrum: clean with saline, skin prep periwound, adaptic then sacral silicone foam, change q other day and prn soilage
Great toe tips: Skin prep daily
increase protein in diet
air chair cushion when sitting
air mattress if going back to [facility].
Follow up at wound care center if not healing, call for an appointment.
Referrals:
[facility] [Outside]
Kristal Flores DO [Family Provider, Family Practice]
Cassandra Florence CRNP [Specified Professional Personl, Cardiology] - 04/18/25 2:00 pm
Referral Note: You have a cardiology follow-up appointment at the [facility]. Please call with questions
Additional Discharge Medication Instructions: Recommend speech therapy at [facility]
Hold diuretic therapy with plan to BMP in 3 days 04/08/2025. Then notify cardiology office for reinitiation of medical therapy with subsequent repeat testing.
Follow up at wound care center if not healing, call for an appointment
Please follow up in a week with your PCP
Prescriptions:
New
prednisone 10 mg Tablet
See Rx Instructions .ROUTE .COMPLEX Qty: 30 0RF
Rx Instructions:
Take By Mouth:
40 mg daily x3 days, 30 mg daily x3 days,
20 mg daily x3 days, 10 mg daily x3 days.
cefdinir 300 mg capsule
300 mg PO BID Qty: 8 0RF
Continued
lidocaine 5 % Adhesive Patch,Medicated
1 patch TOPICAL DAILYPRN PRN (Reason: lower back)
acetaminophen 325 mg Tablet
650 mg PO Q6HPRN PRN (Reason: mild pain/ fever>100.5F) Qty: 0 0RF
ipratropium-albuterol 0.5 mg-3 mg(2.5 mg base)/3 mL Solution For Nebulization
3 ml inhalation R QID Qty: 0 0RF
ipratropium-albuterol 0.5 mg-3 mg(2.5 mg base)/3 mL Solution For Nebulization
3 ml inhalation R Q4HPRN PRN (Reason: sob) Qty: 0 0RF
amiodarone [Pacerone] 200 mg Tablet
200 mg PO DAILY Qty: 0 0RF
pantoprazole 40 mg Tablet,Delayed Release (Dr/Ec)
40 mg PO DAILY Qty: 0 0RF
diltiazem HCl 120 mg Capsule,Extended Release 24hr
120 mg PO DAILY Qty: 0 0RF
nicotine 7 mg/24 hr Patch 24 Hour
7 mg transdermal DAILY Qty: 0 0RF
oxycodone 5 mg Tablet
5 mg PO BIDPRN PRN (Reason: severe pain) Qty: 5 0RF
Eliquis 2.5 mg Tablet
2.5 mg PO BID Qty: 0 0RF
guaifenesin 600 mg Tablet Extended Release 12hr
600 mg PO Q12 Qty: 0 0RF
sennosides [senna] 8.6 mg Tablet
17.2 mg PO BIDPRN PRN (Reason: constipation)
nystatin 100,000 unit/mL Suspension
30 ml mucous membrane TID
bisacodyl [Dulcolax (bisacodyl)] 10 mg Suppository
10 mg IL DAILYPRN PRN (Reason: if no bm aftr mom giv gabriel day 5)
Fleet Enema 19-7 gram/118 mL Enema
118 ml IL DAILYPRN PRN (Reason: if no bm aftr dulcoalc give on day 6)
docusate sodium [Colace] 100 mg Capsule
200 mg PO HS
phenol 1.4 % Aerosol,Harrison
2 spray MUCOUS MEMBRANE Q2HPRN PRN (Reason: sore throat)
peppermint 350 mg Capsule
90 mg PO DAILYPRN PRN (Reason: stomach issuses)
sennosides [Hina-ame] 8.6 mg tablet
17.2 mg PO Q48H
polyethylene glycol 3350 17 gram powder in packet
17 g PO DAILYPRN PRN (Reason: constipation)
lorazepam 0.5 mg Tablet
0.5 mg PO Q6HPRN PRN (Reason: anixety) Qty: 4 0RF
Held
losartan 50 mg Tablet
50 mg PO DAILY Qty: 0 0RF
Hold Instructions: hold losartan therapy with plan to BMP in 04/08/2025. Can then notify cardiology office for reinitiation of medical therapy with subsequent repeat testing.
furosemide 20 mg Tablet
20 mg PO DAILY Qty: 0 0RF
Hold Instructions: hold diuretic therapy with plan to BMP in 04/08/2025. Can then notify cardiology office for reinitiation of medical therapy with subsequent repeat testing.
Discontinued
fluconazole 200 mg Tablet
200 mg PO DAILY
Rx Instructions:
for 14 days startingg 03/26/25
magnesium hydroxide [Milk of Magnesia] 400 mg/5 mL Suspension
2,400 mg PO [id number] PRN (Reason: if no bm by 3rd day give on day 4)
Discharge Orders:
Discharge Patient (As Directed); Ordered 04/05/25
Ordered By: Fahad Hood
Care Plan Goals
Care Plan Goals:
Problem: Readiness for enhanced knowledge related to diagnosis and treatment plan
Goal: Understand your diagnosis and treatment plan needs, including medications if applicable.
Instructions: Know your diagnosis, underlying causes and treatment plan options, including medications if applicable. Consult with your health care team to learn about your diagnosis and treatment plan, including medications if applicable.
Discharge Date and Time
Discharge Date/Time: 04/05/25 18:30
Print Language: SCOTTISH

Documented by User: Marianela Meade MD 04/06/25 08:43
Discharge Summary
Discharge Data
Date of Admission: 04/01/25
Date of Discharge: 04/06/25
Discharge Plan
-
Patient Disposition: Intermediate/SNF
Discharge Diagnosis/Procedures: Paroxysmal Atrial flutter with RVR
Hypotension
Dysphagia
Acute Chronic Obstructive Pulmonary disease exacerbation
Acute kidney injury
Urinary tract infection secondary to Chronic Torres catheter use
Chronic Heart failure
Thrush
Essential hypertension
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
Condition: Fair
Diet: Other diet
Additional Diets: soft and bite sized with mildly thickened liquids. Meds whole in applesauce. Allow ice chips after oral care [facility].
Activity: As tolerated
Driving Restrictions: As prior to admission
Bathing Restrictions: None
Blood Work: BMP in 3 days
Other Services: ST
Activity Restrictions/Additional Instructions:
Wound Care Instructions
Sacrum: clean with saline, skin prep periwound, adaptic then sacral silicone foam, change q other day and prn soilage
Great toe tips: Skin prep daily
increase protein in diet
air chair cushion when sitting
air mattress if going back to SNF.
Follow up at wound care center if not healing, call for an appointment.
Referrals:
[facility] [Outside]
Kristal Flores DO [Family Provider, Family Practice]
Cassandra Florence CRNP [Specified Professional Personl, Cardiology] - 04/18/25 2:00 pm
Referral Note: You have a cardiology follow-up appointment at the [facility] office. Please call with questions
Additional Discharge Medication Instructions: Recommend speech therapy at [facility]
Hold diuretic therapy with plan to BMP in 3 days 04/08/2025. Then notify cardiology office for reinitiation of medical therapy with subsequent repeat testing.
Follow up at wound care center if not healing, call for an appointment
Please follow up in a week with your PCP
Prescriptions:
New
prednisone 10 mg Tablet
See Rx Instructions .ROUTE .COMPLEX Qty: 30 0RF
Rx Instructions:
Take By Mouth:
40 mg daily x3 days, 30 mg daily x3 days,
20 mg daily x3 days, 10 mg daily x3 days.
cefdinir 300 mg capsule
300 mg PO BID Qty: 8 0RF
Continued
lidocaine 5 % Adhesive Patch,Medicated
1 patch TOPICAL DAILYPRN PRN (Reason: lower back)
acetaminophen 325 mg Tablet
650 mg PO Q6HPRN PRN (Reason: mild pain/ fever>100.5F) Qty: 0 0RF
ipratropium-albuterol 0.5 mg-3 mg(2.5 mg base)/3 mL Solution For Nebulization
3 ml inhalation R QID Qty: 0 0RF
ipratropium-albuterol 0.5 mg-3 mg(2.5 mg base)/3 mL Solution For Nebulization
3 ml inhalation R Q4HPRN PRN (Reason: sob) Qty: 0 0RF
amiodarone [Pacerone] 200 mg Tablet
200 mg PO DAILY Qty: 0 0RF
pantoprazole 40 mg Tablet,Delayed Release (Dr/Ec)
40 mg PO DAILY Qty: 0 0RF
diltiazem HCl 120 mg Capsule,Extended Release 24hr
120 mg PO DAILY Qty: 0 0RF
nicotine 7 mg/24 hr Patch 24 Hour
7 mg transdermal DAILY Qty: 0 0RF
oxycodone 5 mg Tablet
5 mg PO BIDPRN PRN (Reason: severe pain) Qty: 5 0RF
Eliquis 2.5 mg Tablet
2.5 mg PO BID Qty: 0 0RF
guaifenesin 600 mg Tablet Extended Release 12hr
600 mg PO Q12 Qty: 0 0RF
sennosides [senna] 8.6 mg Tablet
17.2 mg PO BIDPRN PRN (Reason: constipation)
nystatin 100,000 unit/mL Suspension
30 ml mucous membrane TID
bisacodyl [Dulcolax (bisacodyl)] 10 mg Suppository
10 mg IL DAILYPRN PRN (Reason: if no bm aftr mom giv gabriel day 5)
Fleet Enema 19-7 gram/118 mL Enema
118 ml IL DAILYPRN PRN (Reason: if no bm aftr dulcoalc give on day 6)
docusate sodium [Colace] 100 mg Capsule
200 mg PO HS
phenol 1.4 % Aerosol,Harrison
2 spray MUCOUS MEMBRANE Q2HPRN PRN (Reason: sore throat)
peppermint 350 mg Capsule
90 mg PO DAILYPRN PRN (Reason: stomach issuses)
sennosides [Hina-ame] 8.6 mg tablet
17.2 mg PO Q48H
polyethylene glycol 3350 17 gram powder in packet
17 g PO DAILYPRN PRN (Reason: constipation)
lorazepam 0.5 mg Tablet
0.5 mg PO Q6HPRN PRN (Reason: anixety) Qty: 4 0RF
Held
losartan 50 mg Tablet
50 mg PO DAILY Qty: 0 0RF
Hold Instructions: hold losartan therapy with plan to BMP in 04/08/2025. Can then notify cardiology office for reinitiation of medical therapy with subsequent repeat testing.
furosemide 20 mg Tablet
20 mg PO DAILY Qty: 0 0RF
Hold Instructions: hold diuretic therapy with plan to BMP in 04/08/2025. Can then notify cardiology office for reinitiation of medical therapy with subsequent repeat testing.
Discontinued
fluconazole 200 mg Tablet
200 mg PO DAILY
Rx Instructions:
for 14 days startingg 03/26/25
magnesium hydroxide [Milk of Magnesia] 400 mg/5 mL Suspension
2,400 mg PO [id number] PRN (Reason: if no bm by 3rd day give on day 4)
Discharge Orders:
Discharge Patient (As Directed); Ordered 04/05/25
Ordered By: Fahad Hood
Care Plan Goals
Care Plan Goals:
Problem: Readiness for enhanced knowledge related to diagnosis and treatment plan
Goal: Understand your diagnosis and treatment plan needs, including medications if applicable.
Instructions: Know your diagnosis, underlying causes and treatment plan options, including medications if applicable. Consult with your health care team to learn about your diagnosis and treatment plan, including medications if applicable.
Discharge Date and Time
Discharge Date/Time: 04/05/25 18:30
Print Language: SCOTTISH
[2025-04-05] MEDS: STERILE WATER FOR INJECTION 10 ML IV (14:42)
[2025-04-05] MEDS: ROCEPHIN 1000 MG IV (14:44)
[2025-04-05 15:12] VITALS: BP 127/73
--- NOTE | 2025-04-05 15:40 | PTOTSP ---
Video Swallow Examination
patient presents with a mild to moderate oral/pharyngeal dysphagia characterized by reduced oral containment and oral clearance, delayed laryngeal vestibular closure and at least mild tongue base/pharyngeal weakness resulting in consistent trace
laryngeal penetration of thin liquid with one instance of trace flash aspiration of thin liquid. Use of chin tuck appeared to contribute to pyriform sinus stasis and degree and depth of airway compromise with thin liquid. Trace to mild pharyngeal
stasis cleared with secondary swallow. Trace to minimal pharyngeal stasis acoross tested consistencies. Brief lateral view of esophagus after study completed was unremarkable.
Recommend:
1. Continue Level 6 (soft and bite-sized) solids, but downgrade to mildly thick liquids.
2. Pills whole in applesauce.
3. Allow ice chips in between meals per ARHP guidelines.
4. Aspiration precautions.
5. Follow up speech therapy after discharge to assist in advancing diet as clinically indicated. Further diet modifications per treating therapist discretion based on their personal assessment and observations with patient after discharge.
--- NOTE | 2025-04-05 15:55 | CM ---
pt medically cleared to return to [facility], auth obtained.
[2025-04-05] MEDS: ATIVAN 0.5 MG PO (16:59)
--- NOTE | 2025-04-05 17:50 | PTCARENOTE ---
pt report called to [facility], spoke w/ Nella. questions answered. Son updated. Xanax script faxed to [facility]. IV and tele dc'd. pt left w/ all belongings via ambulance stretcher. paperwork given to EMS crew.
--- NOTE | 2025-04-08 13:16 | CM ---
recieved call from [facility] with a different auth # for [facility]- # [id number] 04/05-04/09, skilled. called [employer] supervisor [address] at [place] with auth.
== END 2025-04-05 18:30 | DRG 308 ==
LOC: IVU 19:17
PROVIDERS: Emergency Medicine; ADMITTING PHYSICIAN General Practice; CONSULT PHYSICIAN Nuclear Medicine Nuclear Cardiology; EMERGENCY PHYSICIAN Emergency Medicine; FAMILY PHYSICIAN Family Medicine
DX: I48.92 Unspecified atrial flutter (principal); E43 Unspecified severe protein-calorie malnutrition; J44.1 Chronic obstructive pulmonary disease with (acute) exacerbation; T83.511A Infection and inflammatory reaction due to indwelling urethral catheter, initial encounter; N39.0 Urinary tract infection, site not specified; B37.0 Candidal stomatitis; I50.32 Chronic diastolic (congestive) heart failure; Z68.1 Body mass index [BMI] 19.9 or less, adult; N17.9 Acute kidney failure, unspecified; I48.91 Unspecified atrial fibrillation; E86.1 Hypovolemia; I11.0 Hypertensive heart disease with heart failure; F17.200 Nicotine dependence, unspecified, uncomplicated; F41.9 Anxiety disorder, unspecified; I95.9 Hypotension, unspecified; I35.8 Other nonrheumatic aortic valve disorders; I34.0 Nonrheumatic mitral (valve) insufficiency; I07.1 Rheumatic tricuspid insufficiency; E87.6 Hypokalemia; E88.09 Other disorders of plasma-protein metabolism, not elsewhere classified; L89.152 Pressure ulcer of sacral region, stage 2; R13.13 Dysphagia, pharyngeal phase; K59.00 Constipation, unspecified; K44.9 Diaphragmatic hernia without obstruction or gangrene; B96.1 Klebsiella pneumoniae [K. pneumoniae] as the cause of diseases classified elsewhere; R31.9 Hematuria, unspecified; Y84.6 Urinary catheterization as the cause of abnormal reaction of the patient, or of later complication, without mention of misadventure at the time of the procedure; Y92.9 Unspecified place or not applicable; Y73.2 Prosthetic and other implants, materials and accessory gastroenterology and urology devices associated with adverse incidents; Z66 Do not resuscitate; Z88.0 Allergy status to penicillin; Z79.899 Other long term (current) drug therapy; Z79.51 Long term (current) use of inhaled steroids; Z79.01 Long term (current) use of anticoagulants; Z79.52 Long term (current) use of systemic steroids; Z79.891 Long term (current) use of opiate analgesic; Z11.52 Encounter for screening for COVID-19
CPT/HCPCS: 71045; 74230; 80048; 80053; 81003; 81015; 82805; 83735; 83880; 84443; 84484; 85025; 85027; 87077; 87086; 87186; 87502; 87811; 92610; 92611; 93005; 94640; 96361; 96374; 97163; 97167; 99285; 99406

== ENCOUNTER → 2025-04-08 09:45 | Outpatient (REF) | payer OTHER, MEDICARE, SELFPAY ==
[2025-04-08 12:03] LABS: Hematocrit 39.6 % (37.0-47.0); Hemoglobin 12.2 g/dL (12.0-16.0); Mean Corp Hgb Conc. 30.8 g/dL (33.0-37.0); Mean Corpuscular Volume 93.8 fL (81.0-99.0); Nucleated Red Blood Cells % 0 %; Platelet Count 243 10^3/uL (130-400); Red Cell Dist. Width 18.7 % (11.5-14.5)
[2025-04-08 12:17] LABS: Blood Urea Nitrogen 25 mg/dl (7-17); Calcium 8.5 mg/dl (8.4-10.2); Carbon Dioxide 26 mmol/L (22-30); Chloride 105 mmol/L (98-107); Glucose 83 mg/dl (70-99); Potassium 4.5 mmol/L (3.5-5.1); Sodium 137 mmol/L (135-145); eGFR > 60.00
== END ==
LOC: OLABP 09:45
PROVIDERS: ATTENDING PHYSICIAN Family Medicine
DX: J96.01 Acute respiratory failure with hypoxia (principal); J44.89 Other specified chronic obstructive pulmonary disease; I50.9 Heart failure, unspecified; J18.9 Pneumonia, unspecified organism; J40 Bronchitis, not specified as acute or chronic; N17.9 Acute kidney failure, unspecified; E87.1 Hypo-osmolality and hyponatremia; B37.0 Candidal stomatitis; R33.9 Retention of urine, unspecified; I50.31 Acute diastolic (congestive) heart failure; R53.1 Weakness; R63.0 Anorexia; R79.9 Abnormal finding of blood chemistry, unspecified
CPT/HCPCS: 36415; 80048; 85025

== ENCOUNTER → 2025-04-10 11:40 | Outpatient (REF) | payer OTHER, MEDICARE, SELFPAY ==
[2025-04-10 12:19] LABS: Hematocrit 36.2 % (37.0-47.0); Hemoglobin 11.3 g/dL (12.0-16.0); Mean Corp Hgb Conc. 31.2 g/dL (33.0-37.0); Mean Corpuscular Volume 90.7 fL (81.0-99.0); Platelet Count 240 10^3/uL (130-400); Red Cell Dist. Width 18.8 % (11.5-14.5)
== END ==
LOC: OLABP 11:40
PROVIDERS: ATTENDING PHYSICIAN Family Medicine
DX: G47.00 Insomnia, unspecified (principal); J96.01 Acute respiratory failure with hypoxia; I50.9 Heart failure, unspecified; J18.9 Pneumonia, unspecified organism; J40 Bronchitis, not specified as acute or chronic; N17.9 Acute kidney failure, unspecified; E87.1 Hypo-osmolality and hyponatremia; B37.0 Candidal stomatitis; R33.9 Retention of urine, unspecified; R79.9 Abnormal finding of blood chemistry, unspecified; R19.5 Other fecal abnormalities
CPT/HCPCS: 36415; 85027

== ENCOUNTER → 2025-04-16 12:29 | Outpatient (REF) | payer OTHER, MEDICARE, SELFPAY ==
[2025-04-16 13:07] LABS: Hematocrit 34.0 % (37.0-47.0); Hemoglobin 10.7 g/dL (12.0-16.0); Mean Corp Hgb Conc. 31.5 g/dL (33.0-37.0); Mean Corpuscular Volume 89.5 fL (81.0-99.0); Nucleated Red Blood Cells % 0.2 %; Platelet Count 260 10^3/uL (130-400); Red Cell Dist. Width 20.0 % (11.5-14.5)
== END ==
LOC: OLABP 12:29
PROVIDERS: ATTENDING PHYSICIAN Family Medicine
DX: B37.0 Candidal stomatitis (principal); J44.89 Other specified chronic obstructive pulmonary disease; J40 Bronchitis, not specified as acute or chronic; N17.9 Acute kidney failure, unspecified; E87.1 Hypo-osmolality and hyponatremia; B37.81 Candidal esophagitis
CPT/HCPCS: 36415; 85025

== ENCOUNTER → 2025-04-19 10:51 | Outpatient (REF) | payer OTHER, MEDICARE, SELFPAY ==
[2025-04-19 11:19] LABS: Hematocrit 36.6 % (37.0-47.0); Hemoglobin 11.3 g/dL (12.0-16.0); Mean Corp Hgb Conc. 30.9 g/dL (33.0-37.0); Mean Corpuscular Volume 90.6 fL (81.0-99.0); Nucleated Red Blood Cells % 0 %; Platelet Count 225 10^3/uL (130-400); Red Cell Dist. Width 20.5 % (11.5-14.5)
[2025-04-19 11:40] LABS: Blood Urea Nitrogen 23 mg/dl (7-17); Calcium 7.9 mg/dl (8.4-10.2); Carbon Dioxide 25 mmol/L (22-30); Chloride 106 mmol/L (98-107); Glucose 77 mg/dl (70-99); Potassium 3.9 mmol/L (3.5-5.1); Sodium 137 mmol/L (135-145); eGFR > 60.00
== END ==
LOC: OLABP 10:51
PROVIDERS: ATTENDING PHYSICIAN Family Medicine
DX: B37.0 Candidal stomatitis (principal); G47.00 Insomnia, unspecified; R79.9 Abnormal finding of blood chemistry, unspecified; J96.01 Acute respiratory failure with hypoxia; I50.9 Heart failure, unspecified; N18.9 Chronic kidney disease, unspecified; J40 Bronchitis, not specified as acute or chronic; N17.9 Acute kidney failure, unspecified; E87.1 Hypo-osmolality and hyponatremia; B37.81 Candidal esophagitis; I50.31 Acute diastolic (congestive) heart failure; R53.1 Weakness; R63.0 Anorexia; Z68.1 Body mass index [BMI] 19.9 or less, adult; R33.9 Retention of urine, unspecified; R26.2 Difficulty in walking, not elsewhere classified; R19.5 Other fecal abnormalities
CPT/HCPCS: 36415; 80048; 85025

== ENCOUNTER 2025-04-23 19:34 | Inpatient (IN) | payer MEDICARE, SELFPAY ==
[2025-04-23] VITALS (11 sets, daily range): BP systolic 91–113; BP diastolic 52–84; BMI 14.5; BMI 16.4
--- NOTE | 2025-04-23 14:25 | ED.GENMED ---
History of Present Illness
<Alonso Villela, DO - Last Filed: 04/23/25 20:05>
General
Chief Complaint: Breathing Problem
Time Seen by Provider: 04/23/25 13:51
<Saurav Rosado DO, Resident - Last Filed: 04/23/25 16:27>
General
Source: patient
Exam Limitations: none
History of Present Illness
History of Present Illness:
Virgie Lugo is a 89F w/ PMHx COPD, HTN, recently diagnosed atrial fibrillation with recent admission from 04/01-04/05 for A-fib with RVR and resultant hypotension. She is rate and rhythm controlled on amiodarone and diltiazem. Last visit she was
reloaded with amiodarone and discharged after trial of IV fluids for hypotension. She was discharged to rehab.
She presents today with difficulty breathing that started approximately 1 hour prior to arrival. Transfer records not available. Patient says 'my A-fib keeps acting up'. Patient endorses she has also been coughing. She states that earlier today,
she choked on a scrambled egg. A chest x-ray was done at the rehab facility. She said she was told that she has pneumonia. Cough is nonproductive. Patient otherwise denies upper respiratory symptoms, chest pain, abdominal pain, nausea, vomiting.
Past History
<Alonso Villela, DO - Last Filed: 04/23/25 20:05>
Past History
ED Past Medical History: HTN
Social History
Tobacco: Smoker
Alcohol: None
Drug: None
Living: with family
Review of Systems
<Saurav Rosado DO, Resident - Last Filed: 04/23/25 16:27>
Review of Systems
All Other Systems: ROS reviewed and negative except as documented in HPI and ROS
Phy Exam
<Saurav Rosado DO, Resident - Last Filed: 04/23/25 16:27>
Physical Exam
Physical Exam:
General: Elderly female in mild acute distress.
HEENT: Right sclera are anicteric with normal extraocular motions. Left eye behind a bandage.
Cardiovascular: Irregular rhythm, tachycardia
Lungs: Left lung field clear to auscultation, right lung decreased breath sounds particularly from middle lobe down.
MSK: No clubbing, no cyanosis, no edema.
Neuro: Alert, awake, AO X3
Psych: Calm, normal affect.
Scores
<Saurav Rosado DO, Resident - Last Filed: 04/23/25 16:27>
Heart Failure Risk
Heart Failure Risk Score: Not Applicable
Heart Score for Chest Pain Patients
STEMI patient?: Not applicable
Withdrawal Assessment of Alcohol
Withdrawal Assessment Completed?: Not applicable
Course
<Alonso Villela DO - Last Filed: 04/23/25 20:05>
Orders/Labs/Results
Orders:
Orders
04/23/25 14:20
Electrocardiogram (*1) Urgent
Reason for Study: Shortness of Breath
EKG- Treatment ONCE
Ipratropium/Albuterol Sulfate [Duoneb] 3 ml INH R NOW STA
04/23/25 14:30
Complete Blood Count/With Diff Urgent
Comprehensive Metabolic Panel Urgent
Lactate Level [Lactic Acid] Urgent
NT-proBNP Urgent
Troponin I Urgent
Blood Culture Q30M
LISSA Source: Blood/Venous
Specimen Description:
04/23/25 14:32
COVID-19 Antigen Stat
Source: Nasal Swab
Influenza A+B Rapid Molecular Urgent
LISSA Source: Nasal Swab
Specimen Description:
04/23/25 14:42
Blood Culture Q30M
LISSA Source: Blood/Venous
Specimen Description:
04/23/25 15:21
Portable Chest Xray [CR Chest Portable - 1 View] Stat
Comment:
Reason For Exam: Shortness of breath
Reason Study Needs to be Portable: Unable to Transport
04/23/25 15:49
Cefepime HCl [Maxipime] 1,000 mg IV NOW STA
04/23/25 16:10
Sterile Water [Sterile Water For Injection] 10 ml .ROUTE .STK-MED ONE
04/23/25 17:13
MetroNIDAZOLE [Flagyl] 250 mg PO NOW STA
04/23/25 17:14
Vancomycin HCl [Firvanq] 125 mg PO NOW STA
04/23/25 18:11
Admit/Transfer Patient As Directed
Co-Sign Provider:
Level of Care: Inpatient admission
Assign to:: IVU
Physician / Group: Hospitalist
Diagnosis: Acute hypoxic respiratory failure
Reason for Hospitalization: Acute hypoxic respiratory failure
Expected length of stay greater than two midnights?: Yes
ELOS- Estimated Length of Stay in days: 3
I certify the patient meets the requirements for IP care: Yes
PRN Pain Medication Management As Directed
May give lesser potent ordered pain med per pt: Yes
preference::
Protocol:: Medication orders for pain may be administered in a
manner that supports deferring to patient preference
when the pt is:
- Requesting an ordered lesser potent pain medication.
Least to most potent pain medications are defined
as: acetaminophen < NSAID < tramadol < opioids
(morphine, oxycodone, hydromorphone).
- Requesting a lesser dose of the same medication IF
ORDERED.
- Requesting a less intrusive route of administration
if both routes are prescribed by the provider (PO <
IV).
04/23/25 19:03
Code Status As Directed
Resuscitation Status: Do not resuscitate
Reached after discussion with pt or family/Healthcare POA: Yes
DNR Bracelet Application ONCE
04/23/25 19:04
Lactate Level [Lactic Acid] Routine
Abnormal Lab Results
04/23/25
14:30
MCHC 32.7 L g/dL
(33.0-37.0)
RDW 21.3 H %
(11.5-14.5)
Abs Immat Gran (auto) 0.1 H 10^3/uL
(0-0.05)
Absolute Neuts (auto) 7.5 H 10^3/uL
(1.4-6.5)
Absolute Monos (auto) 0.7 H 10^3/uL
(0.1-0.6)
Immature Gran % 0.9 H %
(0-0.5)
Lymphocytes % 15.8 L %
(20.5-51.1)
Sodium 134 L mmol/L
(135-145)
BUN 26 H mg/dl
(7-17)
Lactic Acid 2.1 H mmol/L
(0.7-2.0)
Calcium 8.2 L mg/dl
(8.4-10.2)
Total Protein 5.2 L g/dl
(6.3-8.2)
Albumin 2.9 L g/dl
(3.5-5.0)
04/23/25 14:30
04/23/25 14:30
Vital Signs
Initial and Last Documented VS:
Initial Vital Signs
Pulse Resp
144 34
04/23/25 13:44 04/23/25 13:44
Last Documented Vital Signs
Temp Pulse Resp BP Pulse Ox
99.7 F 127 25 97/68 97
04/23/25 14:26 04/23/25 18:45 04/23/25 18:45 04/23/25 18:01 04/23/25 17:00
<Saurav Rosado DO, Resident - Last Filed: 04/23/25 16:27>
Orders/Labs/Results
Orders:
Orders
04/23/25 14:20
Electrocardiogram (*1) Urgent
Reason for Study: Shortness of Breath
EKG- Treatment ONCE
Ipratropium/Albuterol Sulfate [Duoneb] 3 ml INH R NOW STA
04/23/25 14:30
Complete Blood Count/With Diff Urgent
Comprehensive Metabolic Panel Urgent
Lactate Level [Lactic Acid] Urgent
NT-proBNP Urgent
Troponin I Urgent
Blood Culture Q30M
LISSA Source: Blood/Venous
Specimen Description:
04/23/25 14:32
COVID-19 Antigen Stat
Source: Nasal Swab
Influenza A+B Rapid Molecular Urgent
LISSA Source: Nasal Swab
Specimen Description:
04/23/25 14:42
Blood Culture Q30M
LISSA Source: Blood/Venous
Specimen Description:
04/23/25 15:21
Portable Chest Xray [CR Chest Portable - 1 View] Stat
Comment:
Reason For Exam: Shortness of breath
Reason Study Needs to be Portable: Unable to Transport
04/23/25 15:49
Cefepime HCl [Maxipime] 1,000 mg IV NOW STA
04/23/25 16:10
Sterile Water [Sterile Water For Injection] 10 ml .ROUTE .STK-MED ONE
04/23/25 17:13
MetroNIDAZOLE [Flagyl] 250 mg PO NOW STA
04/23/25 17:14
Vancomycin HCl [Firvanq] 125 mg PO NOW STA
04/23/25 18:11
Admit/Transfer Patient As Directed
Co-Sign Provider:
Level of Care: Inpatient admission
Assign to:: IVU
Physician / Group: Hospitalist
Diagnosis: Acute hypoxic respiratory failure
Reason for Hospitalization: Acute hypoxic respiratory failure
Expected length of stay greater than two midnights?: Yes
ELOS- Estimated Length of Stay in days: 3
I certify the patient meets the requirements for IP care: Yes
PRN Pain Medication Management As Directed
May give lesser potent ordered pain med per pt: Yes
preference::
Protocol:: Medication orders for pain may be administered in a
manner that supports deferring to patient preference
when the pt is:
- Requesting an ordered lesser potent pain medication.
Least to most potent pain medications are defined
as: acetaminophen < NSAID < tramadol < opioids
(morphine, oxycodone, hydromorphone).
- Requesting a lesser dose of the same medication IF
ORDERED.
- Requesting a less intrusive route of administration
if both routes are prescribed by the provider (PO <
IV).
04/23/25 19:03
Code Status As Directed
Resuscitation Status: Do not resuscitate
Reached after discussion with pt or family/Healthcare POA: Yes
DNR Bracelet Application ONCE
04/23/25 19:04
Lactate Level [Lactic Acid] Routine
Abnormal Lab Results
04/23/25
14:30
MCHC 32.7 L g/dL
(33.0-37.0)
RDW 21.3 H %
(11.5-14.5)
Abs Immat Gran (auto) 0.1 H 10^3/uL
(0-0.05)
Absolute Neuts (auto) 7.5 H 10^3/uL
(1.4-6.5)
Absolute Monos (auto) 0.7 H 10^3/uL
(0.1-0.6)
Immature Gran % 0.9 H %
(0-0.5)
Lymphocytes % 15.8 L %
(20.5-51.1)
Sodium 134 L mmol/L
(135-145)
BUN 26 H mg/dl
(7-17)
Lactic Acid 2.1 H mmol/L
(0.7-2.0)
Calcium 8.2 L mg/dl
(8.4-10.2)
Total Protein 5.2 L g/dl
(6.3-8.2)
Albumin 2.9 L g/dl
(3.5-5.0)
04/23/25 14:30
04/23/25 14:30
Vital Signs
Initial and Last Documented VS:
Initial Vital Signs
Pulse Resp
144 34
04/23/25 13:44 04/23/25 13:44
Last Documented Vital Signs
Temp Pulse Resp BP Pulse Ox
99.7 F 127 25 97/68 97
04/23/25 14:26 04/23/25 18:45 04/23/25 18:45 04/23/25 18:01 04/23/25 17:00
<Saurav Rosado DO, Resident - Last Filed: 04/23/25 16:27>
MDM/Problems Addressed
Differential Diagnosis Includes:
Dyspnea secondary to atrial fibrillation, COPD exacerbation, influenza, COVID, CHF secondary to atrial fibrillation, bacterial pneumonia, aspiration penumonia, viral pneumonia
MDM/Problems Addressed:
89F w/ recent diagnosis of atrial fibrillation who is presenting with new onset shortness of breath started approximately 1 hour prior to arrival associated with cough. Transfer records not available but patient endorses that she choked on a
scrambled egg prior to arrival and a chest x-ray at rehab showed pneumonia. On arrival patient is tachycardic, with EKG showing atrial flutter with variable AV block. Lung examination reveals decreased breath sounds on the right. DuoNeb started.
CXR, COVID, flu, CBC, CMP, proBNP, troponin ordered. Temperature 99.7 and patient with soft blood pressures and tachycardia; Lactate and blood cultures X2 ordered.
CBC reveals normocytosis but still with mild left shift possibly indicating early response to infection.
Initial lactate 2.1, repeat in 2-4 hours.
HR, RR, O2 sat improved s/p Duoneb treatment.
BNP 8000 compare to 3700 on last admission; patient appears dry on exam, will hold on Lasix.
CXR shows L>R airspace opacities, atelectasis vs pneumonia. Will start Cefepime, Flagyl, Vanco for HAP vs. possible aspiration pneumonia.
Will admit for further antibiotic treatment. Hospitalist notified.
Radiologist read atelectasis more possible than pneumonia, but with mildly elevated lactate, there is still concern. Will still admit to hospitalist for further treatment and work up, though a broad differential including possible CHF should still
be considered as clinical course evolves.
<Alonso Villela DO - Last Filed: 04/23/25 20:05>
*Pulse Oximetry
Nasal Cannula flow liters per minute: 2
<Saurav Rosado DO, Resident - Last Filed: 04/23/25 16:27>
*Pulse Oximetry
Patient hypoxic: no
*Critical Care Note
Total Time (30-74mins, 75-104mins- exclusive of procedures): Not Applicable
ED Attending Note
<Alonso Villela DO - Last Filed: 04/23/25 20:05>
ED Attending Note
Patient seen and examined by attending physician: Yes
I performed a history and physical exam of patient and discussed management with resident, I reviewed resident's note and agree with documented findings and plan of care.: Yes
ED Attending Note:
I reviewed and agree with history treatment plan by Saurav Rosado DO. My exam revealed 89-year-old female with atrial flutter, irregular rhythm, decreased breath sounds at bases. Patient with COPD exacerbation pneumonia treated with vancomycin and
cefepime. Will hold rate control medication at this time. Admit to hospitalist
-
Portions of this chart may have been created with voice recognition software.� Occasional wrong word or��sound alike� substitutions may have occurred due to the inherent limitations of voice recognition software.
Discharge Plan
Departure
Patient Disposition: Admit
Date of Disposition: 04/23/25
Time of Disposition: 16:11
Admit to: Telemetry
Admit to doctor: Marilin Wick
Presentation/result/management discussed w/ accepting MD/DO: Hospitalist
Condition: Fair
Covid-19: Negative COVID-19
Discharge Problem:
HAP (hospital-acquired pneumonia), Aspiration pneumonia, Atrial fibrillation/flutter
Interventions
Interventions:
*General Assessment Last Done: 04/23/25 13:46
*Neglect/Abuse Screening Last Done: 04/23/25 14:27
*ED COVID-19 Vaccine History Last Done: 04/23/25 13:46
*ED Influenza Vaccine History Last Done: 04/23/25 13:46
[facility] Fall Risk Assessment Tool Last Done: 04/23/25 14:27
*Risk Screen - Suicide (C-SSRS) Last Done: 04/23/25 14:27
ED- Cardiac Assessment Last Done: 04/23/25 13:46
ED- Pulmonary Assessment Last Done: 04/23/25 13:46
[2025-04-23] MEDS: DUONEB 3 ML INH (14:35)
[2025-04-23 14:51] LABS: Hematocrit 37.3 % (37.0-47.0); Hemoglobin 12.2 g/dL (12.0-16.0); Mean Corp Hgb Conc. 32.7 g/dL (33.0-37.0); Mean Corpuscular Volume 86.5 fL (81.0-99.0); Nucleated Red Blood Cells % 0 %; Platelet Count 327 10^3/uL (130-400); Red Cell Dist. Width 21.3 % (11.5-14.5)
[2025-04-23 15:11] LABS: COVID-19 Antigen Negative (Negative)
[2025-04-23 15:12] LABS: ALT (SGPT) 34 U/L (0-35); AST (SGOT) 19 U/L (14-36); Albumin 2.9 g/dl (3.5-5.0); Alkaline Phosphatase 102 U/L (38-126); Blood Urea Nitrogen 26 mg/dl (7-17); Calcium 8.2 mg/dl (8.4-10.2); Carbon Dioxide 23 mmol/L (22-30); Chloride 105 mmol/L (98-107); Estimated Creatinine Clearance 27 ml/min; Glucose 95 mg/dl (70-99); Potassium 4.0 mmol/L (3.5-5.1); Sodium 134 mmol/L (135-145); Total Protein 5.2 g/dl (6.3-8.2); eGFR > 60.00
[2025-04-23 15:14] LABS: Troponin I 0.029 ng/ml
[2025-04-23] MEDS: MAXIPIME 1000 MG IV (16:59)
--- NOTE | 2025-04-23 17:05 | HPS.HSE ---
Addendum entered and electronically signed by Virgie Ramírez MD 04/23/25 19:47:
I personally performed a history and physical exam of the patient and discussed management with the resident. I reviewed the resident's note and agree with the documented findings and plan of care HPI/CC.
GENERAL: frail cachectic female in some resp distress with pursed lip breathing
HEENT: NC/AT--O2 NC
HEART: irreg irreg --tachy
LUNGS : clear to auscultation bilaterally--decreased breath sounds-- no wheezing
ABDOM: soft, nontender, nondistended, + bowel sounds
EXT: no cyanosis, clubbing, or edema
NEUROLOGIC: grossly intact
Acute hypoxic respiratory failure --on 2-3 L O2--likely from COPD exacerbation with possible aspiration pneumonitis/pneumonia--this is 2nd or 3rd visit in the last 2 months--cont O2, agree with vanco/cefepime for now--if MRSA screen neg than can
stop IV vanco (ED gave oral vanco but that does not work for pneumonia)--would cont nebs and consult pulm--start oral steroids with taper
Atrial flutter with variable AV block--Patient with history of A-fib with RVR, now with a flutter--has seen cards in past--admit to IVU--consult cards--cardizem may contribute to low BP as BP borderline currently)--might need IV amio or
other--likely precipitated by resp issues--cont eliquis
Chronic HFpEF--Last echo 03/07/2025 EF 64%--consider chest US to see if need for thoracentesis--pro BNP 8000 but pt does not seem volume overloaded--hold lasix and hold IVF--no need for repeat ECHO
Dysphagia--had choking episode on eggs earlier--agree with speech eval
Essential Hypertension--BP soft but may be from intolerant rapid aflutter--hold IVF--await cards input to help with rate control
DVT prophylaxis Eliquis
Code status-- DNR, living will available
Original Note:
Family Physician
-
Family Physician: Raquel Abbott, DO
Chief Complaint
-
Choking episode
Breathing difficulties
History of Present Illness
Ms. Lugo is an 89-year-old female with a past medical history of COPD, essential hypertension, A-fib with rapid ventricular response and anxiety.
She was brought in from [facility] following a recent choking episode that occurred while she was eating eggs, which resulted in difficulty breathing prompting a chest x-ray. Patient reports that the chest x-ray was concerning for pneumonia. She she
also complains of her heart beating fast, cough that is mild and nonproductive.
She denies chest pain, fever, chillS.
She has a recent diagnosis of COPD, about 2 months ago and has been admitted twice for exacerbation requiring oxygen support and new onset A-fib with RVR and resultant hypotension and has been to [facility] for acute care rehab in between both
admission.
on presentation to the ED, she was seen to be in acute respiratory distress, vital signs unstable, reduced right lower lung air entry and an irregular heart rate.
Investigations showed, lactic acidosis, elevated proBNP, Left greater than right small bilateral pleural effusions with adjacent airspace opacities, atelectasis versus pneumonia, EKG with atrial flutter with variable AV block.
Flu and COVID-negative
Medical History
Past Medical History
Past Medical History: Reports Arrhythmia, COPD, HTN and Psychiatric (Anxiety)
Past Surgical History: Reports None
Social History
Tobacco: Former Smoker (Quit 2 months ago, smoked for many years)
Alcohol: Occasional (twice a week, 1 glass )
Drug: None
Living: Other (Currently from acute rehab, [facility])
Family History
Family History: Not pertinent
Allergies / Home Medications
Allergies reflects when Allergies were last updated in [employer].
Home Medications with original date entered in [employer]
Allergy/Medication List:
Allergies
Allergy/AdvReac Type Severity Reaction Status Date / Time
Penicillins Allergy Rash Verified 04/01/25 14:13
Home Medications
lidocaine 5 % topical patch 1 patch topical DAILYPRN PRN lower back 03/06/25
acetaminophen 325 mg tablet 650 mg (2 x 325 mg) PO Q6HPRN PRN mild pain/ fever>100.5F #0 tabs 03/15/25
amiodarone 200 mg tablet (Pacerone) 200 mg PO DAILY Arrhythmia #0 tabs 03/15/25
apixaban 2.5 mg tablet (Eliquis) 2.5 mg PO BID Blood clot prevention/tx #0 tabs 03/15/25
diltiazem HCl 120 mg capsule,extended release 24 hr 120 mg PO DAILY Heart disease/condition #0 caps 03/15/25
furosemide 20 mg tablet 20 mg PO DAILY Fluid retention/Swelling #0 tabs 03/15/25
guaifenesin 600 mg tablet, extended release 12 hr 600 mg PO Q12 Lung/breathing issues #0 tabs 03/15/25
ipratropium 0.5 mg-albuterol 3 mg (2.5 mg base)/3 mL nebulization soln 3 ml inhalation R Q4HPRN PRN sob #0 mL 03/15/25
ipratropium 0.5 mg-albuterol 3 mg (2.5 mg base)/3 mL nebulization soln 3 ml inhalation R QID Lung/breathing issues #0 mL 03/15/25
losartan 50 mg tablet 50 mg PO DAILY Blood pressure #0 tabs 03/15/25
nicotine 7 mg/24 hr daily transdermal patch 7 mg transdermal DAILY Smoking cessation #0 ea 03/15/25
oxycodone 5 mg tablet 5 mg PO BIDPRN PRN severe pain #5 tabs 03/15/25
pantoprazole 40 mg tablet,delayed release 40 mg PO DAILY Gastrointestinal issue #0 tabs 03/15/25
bisacodyl 10 mg rectal suppository (Dulcolax (bisacodyl)) 10 mg WA DAILYPRN PRN if no bm aftr mom giv gabriel day 5 04/01/25
docusate sodium 100 mg capsule (Colace) 200 mg PO HS Constipation 04/01/25
fluconazole 200 mg tablet 200 mg PO DAILY 04/01/25
lorazepam 0.5 mg tablet 0.5 mg PO Q6HPRN PRN anixety 04/01/25
magnesium hydroxide 400 mg/5 mL oral suspension (Milk of Magnesia) 2,400 mg PO [id number] PRN if no bm by 3rd day give on day 4 04/01/25
nystatin 100,000 unit/mL oral suspension 30 ml mucous membrane TID 04/01/25
peppermint 350 mg capsule 90 mg PO DAILYPRN PRN stomach issuses 04/01/25
phenol 1.4 % mucosal aerosol spray 2 spray mucous membrane Q2HPRN PRN sore throat 04/01/25
polyethylene glycol 3350 17 gram oral powder packet 17 g PO DAILYPRN PRN constipation 04/01/25
sennosides 8.6 mg tablet (Hina-ame) 17.2 mg PO Q48H Constipation 04/01/25
sennosides 8.6 mg tablet (senna) 17.2 mg PO BIDPRN PRN constipation 04/01/25
sodium phosphates 19 gram-7 gram/118 mL enema (Fleet Enema) 118 ml WA DAILYPRN PRN if no bm aftr dulcoalc give on day 6 04/01/25
Review of Systems
-
History Source: Patient and Family (Dr in-law present)
A 12 point ROS was completed and negative except as noted: Yes
Constitutional: Reports Weight Loss
EENT: Reports No Symptoms
Respiratory: Reports See HPI
Cardiac: Reports See HPI
Abdomen/GI: Reports Diarrhea and Constipated
Musculoskeletal: Reports No Symptoms
Skin: Reports Other (Multiple bruising on edwards)
Neurological: Reports No Symptoms
Physical Exam
Vital Signs
Vital Signs
Temp Pulse Resp BP Pulse Ox
99.7 F 104 26 113/79 100
04/23/25 14:26 04/23/25 14:26 04/23/25 14:26 04/23/25 14:26 04/23/25 14:26
Physical Exam
General: Appears Chronically Ill (Frail looking)
HEENT: NormoCephalic, Anicteric, Moist mucous membranes and Atraumatic
Respiratory: Clear (Reduced mildly reduced air entry on the right lower lung, no crepitations or wheezing, some transmitted sounds from the upper airway)
Cardiac: Irregular Rhythm and Tachycardia; No Peripheral Edema
GI: Soft, Non Tender, Non Distended and Normal Bowel Sounds
Genito-urinary: Other (On adult diapers)
Musculoskeletal: No Cyanosis
Skin: Warm and Dry
Neuro: Awake, Alert, Oriented and AO x 3
Psych: Calm
Laboratory Results
-
04/23/25 14:30
04/23/25 14:30
Laboratory Results
Lactic Acid 2.1 mmol/L (0.7-2.0) H 04/23/25 14:30
Total Bilirubin 0.4 mg/dl (0.2-1.3) 04/23/25 14:30
AST 19 U/L (14-36) 04/23/25 14:30
ALT 34 U/L (0-35) 04/23/25 14:30
Alkaline Phosphatase 102 U/L (38-126) 04/23/25 14:30
Troponin I 0.029 ng/ml 04/23/25 14:30
Data Reviewed
-
Lab Data: Labs Reviewed by me, Discussed with Physician, Discussed with Patient and Discussed with Family
Impression/Plan
-
IMPRESSION:
In summary, Ms. Lugo is an 89-year-old patient with a past medical history of COPD, hypertension, A-fib with RVR who is presenting in acute respiratory distress following a recent choking episode
PLAN:
1) Acute hypoxic respiratory failure
Multifactorial, aspiration incident, possible aspiration pneumonitis vs bacterial Pneumonia in a patient with COPD
Admitted to IVU
Placed on oxygen supplementation, goal O2 >92%
Respiratory treatment with DuoNebs 3 mL q6hr
IV cefepime 1 g Q8
IV vancomycin [continue pending MRSA screen]
P.o. Prednisone 50 mg, taper
Pulmonology consult in a.m.
Monitor respiratory status, vital signs closely.
Daily CBC, CMP, trend lactate.
2) Atrial flutter with variable AV block
Patient with history of A-fib with RVR, now with a flutter
Likely secondary to respiratory compromise
Monitor on telemetry
Continue home amiodarone/diltiazem
Cardiology consult in a.m.
3) Chronic HFpEF
Last echo 03/07/2025 EF 64%
Stable
Continue p.o. Lasix
Cardiology consult
4) Dysphagia
She is presenting following a choking episode.
Speech-language pathology consult.
5) Essential Hypertension
Blood pressure now ranging low
Of blood pressure meds
DVT prophylaxis Eliquis
Code, DNR, living will available
Dispo acute care rehab
[2025-04-23] MEDS: FLAGYL 250 MG PO (17:45)
[2025-04-23] MEDS: FIRVANQ 125 MG PO (17:45)
--- NOTE | 2025-04-23 21:25 | PTCARENOTE ---
Pt admitted to 2251 from ED. Pt AAOX3, WALES. A flutter in 130s on tele. BPs 90s/70s. SOB on exertion and slightly at rest. 95% on 3L, lungs diminished t/o. Denies c/o pain. Pt took PO meds in applesauce without issue. Speech eval ordered, npo except
meds. Plan of care reviewed. Call shields within reach.
[2025-04-23] MEDS: COLACE 200 MG PO (22:02)
[2025-04-23] MEDS: NICODERM TRANSDERMAL 7 MG TRANSDERM (22:02)
[2025-04-23] MEDS: PACERONE 200 MG PO (22:02)
[2025-04-23] MEDS: FLORASTOR 250 MG PO (22:02)
[2025-04-23] MEDS: MUCINEX 600 MG PO (22:02)
[2025-04-23] MEDS: ELIQUIS 2.5 MG PO (22:02)
[2025-04-23] MEDS: SENOKOT 17.2 MG PO (22:03)
[2025-04-23] MEDS: VANCOCIN 200 IV (22:46)
--- NOTE | 2025-04-23 23:19 | PHA.VAN.IN ---
Assessment
- Assessment
Renal Function: Appears similar to baseline
Concomitant Antimicrobials: CEFEPIME
Plan
- Plan
Initial / Loading Dose: VANCOMYCIN 1000 MG IV ~ 2244
Maintenance Regimen: Dosing by random level.
Monitoring: A random level is scheduled 04/24 at 0600 w. am labs. pharmacy will follow.
Pharmacokinetics Vancomycin I
- -
Patient Age: 89
Patient Sex: Female
Vancomycin Day #: 1
Indication: Pulmonary/Respiratory
Requesting Provider: Dr Esther Valenzuela ( Resident)
Pertinent Antimicrobial Allergies:
Penicillin w. rash.
Height / Weight:
Height 5 ft
Actual Weight 38.102 kg
Pertinent Past Medical History: She presents today with difficulty breathing.
- Vital Signs / Lab Results
Temp Pulse Resp BP Pulse Ox
97.4 F 137 22 97/84 95
04/23/25 23:15 04/23/25 21:24 04/23/25 23:15 04/23/25 21:24 04/23/25 23:15
Lab Results - Hematology
04/23/25
14:30
WBC 10.0
Lab Results - Chemistry
04/23/25
14:30
BUN 26 H
Creatinine 0.9
Estimated Creat Clear 27
Albumin 2.9 L
04/23/25 04/23/25
14:30 19:04
Lactic Acid 2.1 H 1.8
Microbiology Results
04/23/25 14:32 Influenza Types A & B (GERI) - Final
Nasal Swab Negative for Influenza A & B, NAAT
Negative results must be combined with clinical observations
and patient history.
Nucleic Acid Amplification test (NAAT)performed on the
[employer] platform.
[2025-04-23] MEDS: DUONEB INH (23:55)
[2025-04-24] VITALS (11 sets, daily range): BP systolic 95–127; BP diastolic 54–84; PULSE 101; O2SAT 100; BMI 16.4
--- NOTE | 2025-04-24 02:46 | W.PN.UPDATE ---
Update Note
Progress Note Update
HR 140's afib/aflutter BP 108/83 SOB at rest
received amiodarone at 2200
will order Cardizem IV 5mg x1
HR remains >144 BP 96/65. patient seen, anxious, stated she feels short of breath and tired, feels like she wants to poop, LBM yesterday. RN gave stool softner
Amiodarone 150 mg bolusx1
HR >139 BP soft
Amiodarone 150mg IV bolus
HR remains above 130's
Dr. Conn made aware.
NPO EKG in AM
HR 90's now no further interventions at present.
[2025-04-24] MEDS: CARDIZEM 5 MG IV (02:57)
--- NOTE | 2025-04-24 02:57 | PTCARENOTE ---
Pt asking to use commode for BM. offered BP but unable to go. Pt helped to BSC with heavy assist x 2. Pt unable to have BM, incont of urine. Pt very SOB, weak, HR now sustaining 141-142. SHEYLA Rodriguez notified. bp 108/83. One time order 5mg cardizem
IV given.
[2025-04-24] MEDS: STERILE WATER FOR INJECTION 10 ML IV ×2 (03:00→17:00)
[2025-04-24] MEDS: MAXIPIME 1000 MG IV ×2 (03:00→17:00)
--- NOTE | 2025-04-24 03:38 | PTCARENOTE ---
HR still high 143-144 after IV cardizem. 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 Order in for 150 mg amio bolus. medication given. after bolus HR 134 bp 101/74 provider aware. Order in for another 150 mg amio bolus.
[2025-04-24] MEDS: CORDARONE 103 MG IV ×2 (04:00→04:49)
[2025-04-24 04:25] LABS: Hematocrit 36.3 % (37.0-47.0); Hemoglobin 11.9 g/dL (12.0-16.0); Mean Corp Hgb Conc. 32.8 g/dL (33.0-37.0); Mean Corpuscular Volume 85.6 fL (81.0-99.0); Nucleated Red Blood Cells % 0 %; Platelet Count 283 10^3/uL (130-400); Red Cell Dist. Width 21.3 % (11.5-14.5)
[2025-04-24 04:52] LABS: Blood Urea Nitrogen 31 mg/dl (7-17); Calcium 8.1 mg/dl (8.4-10.2); Carbon Dioxide 17 mmol/L (22-30); Chloride 107 mmol/L (98-107); Estimated Creatinine Clearance 24 ml/min; Glucose 122 mg/dl (70-99); Potassium 4.2 mmol/L (3.5-5.1); Sodium 133 mmol/L (135-145); eGFR 54.53
[2025-04-24] MEDS: ATIVAN 0.5 MG PO ×2 (05:23→20:17)
[2025-04-24 06:41] LABS: Magnesium 1.7 mg/dl (1.6-2.3)
--- NOTE | 2025-04-24 07:06 | W.PN.HOSP.TC ---
Addendum entered and electronically signed by Virgie Ramírez MD 04/24/25 17:39:
I saw and evaluated the patient independently. I reviewed the resident�s note and agree with findings and plan as documented by Dr. Santana.
GENERAL: frail cachectic female in some resp distress with less pursed lip breathing
HEENT: NC/AT--O2 NC
HEART: irreg irreg --tachy
LUNGS : clear to auscultation bilaterally--decreased breath sounds-- no wheezing
ABDOM: soft, nontender, nondistended, + bowel sounds
EXT: no cyanosis, clubbing, or edema
NEUROLOGIC: grossly intact
Acute hypoxic respiratory failure --on 2-3 L O2--likely from COPD exacerbation with possible aspiration pneumonitis/pneumonia--this is 2nd or 3rd visit in the last 2 months--cont O2, agree with vanco/cefepime for now--if MRSA screen neg than can
stop IV vanco (ED gave oral vanco but that does not work for pneumonia)--would cont nebs and apprec pulm
Atrial flutter with variable AV block--Patient with history of A-fib with RVR, now with a flutter--has seen cards in past--apprec cards--cardizem may contribute to low BP as BP borderline currently)--might need IV amio or other--likely precipitated
by resp issues--cont eliquis
Chronic HFpEF--Last echo 03/07/2025 EF 64%--consider chest US to see if need for thoracentesis--pro BNP 8000 --starting lasix and hold IVF--no need for repeat ECHO
Dysphagia--had choking episode on eggs earlier--apprec speech eval
wounds-POA--stage 2 sacrum pressure injury
severe protein calorie malnutrition--apprec dietary
Essential Hypertension--BP soft but may be from intolerant rapid aflutter--hold IVF--apprec cards input to help with rate control
DVT prophylaxis Eliquis
Code status-- DNR, living will available
Original Note:
Today's Communication/Plan
-
For ST/OT/PT/Cardiology/Pulm evaluations
Assessment / Plan
Assessment / Plan
IMPRESSION:
In summary, Ms. Lugo is an 89-year-old patient with a past medical history of COPD, hypertension, A-fib with RVR who is presenting in acute respiratory distress following a recent choking episode
PLAN:
1) Acute hypoxic respiratory failure
Multifactorial, likely secondary to COPD Exacerbation, with possible aspiration pneumonitis/pneumonia
Admitted to IVU
Placed on oxygen supplementation, goal O2 >92%
Respiratory treatment with DuoNebs 3 mL q6hr
IV cefepime 1 g Q8
IV vancomycin [continue pending MRSA screen]
P.o. Prednisone 50 mg, taper
Pulmonology consult in a.m.
Monitor respiratory status, vital signs closely.
Daily CBC, CMP, trend lactate.
2) Atrial flutter with variable AV block
Patient with history of A-fib with RVR, now with a flutter
Had a tachy episode of 140 at 10pm last night, received Amiodarone
Monitor on telemetry
Continue home amiodarone/diltiazem
Cardiology consult in a.m.
3) Chronic HFpEF
Last echo 03/07/2025 EF 64%
Pro BNP elevated;8000 Lasix was on hold
Since now showing signs of volume overload, consider resuming Lasix IV
Repeat CXR
Strict I/O, Daily weight
Monitor renal status
No need for IVF or repeat ECHO
Cardiology consult
4) Dysphagia
She is presenting following a choking episode.
Speech-language pathology consult.
Npo for now
5) Essential Hypertension
Blood pressure now ranging low
Off blood pressure meds for now
6) Deconditioning
Patient with multiple hospital admission in the past 2 months
POT/OT
7) Chronic constipation
Continue bowel regimen
8) Anxiety
Currently on Lorazepam
Patient wants to continue the medication, she says it calms her nerves and helps her sleep.
Continue for now.
Monitor mental status
DVT prophylaxis Eliquis
Code, DNR, living will available
Dispo acute care rehab
Anticipated Discharge: > 48 hours
Subjective/Interval History
-
Date of Service: April 24, 2025
Admitted yesterday for respiratory compromise
Had a symptomatic tachycardic event last night
C/O still having trouble moving her bowels
Objective Data
-
Labs:
Laboratory Results
04/24/25
04:13
WBC 9.5
Hgb 11.9 L
Hct 36.3 L
Plt Count 283
Sodium 133 L
Potassium 4.2
Chloride 107
Carbon Dioxide 17 L
BUN 31 H
Creatinine 1.0
Glucose 122 H
Calcium 8.1 L
Vital Signs:
Vital Signs
Temp Pulse Resp BP Pulse Ox
97.4 F 132 22 101/74 98
04/24/25 02:11 04/24/25 05:15 04/24/25 02:11 04/24/25 04:24 04/24/25 02:11
I&O
04/23/25 04/24/25 04/25/25
06:59 06:59 06:59
Intake Total 200 / 200
Balance 200 / 200
Review of Systems
-
History Source: Patient
Constitutional: Reports Weight Loss
Respiratory: Reports Trouble Breathing; Denies Wheezing
Cardiac: Reports Other (Had fast heart beat last night, feels ok this morning)
Abdomen/GI: Reports Constipated (On bowel regimen)
Genitourinary: Reports Other (Incontinent on adult diaper)
Physical Exam
-
General: Respiratory Distress (Respiratory distress with pursed lips) and Cachectic (Low weight)
HEENT: Oxygen (Intranasal O2 on 3L)
Respiratory: Other (Reduced air entry bilaterally on both lower lungs, with crepitations); Negative Wheezes or Rhonchi
Cardiac: Negative Irregular Rhythm
GI: Soft, Nontender, Nondistended and Normal Bowel Sounds
Genito-urinary: Other (Incontinent on Adult diapers)
Musculoskeletal: Other (1+ Chente ankle edema)
Skin: Warm and Other (Bilateral bruising on sheen, traumatic)
Neuro: Awake, Alert, Oriented and AO x 3
Psych: Calm
--- NOTE | 2025-04-24 07:32 | CON.CAR ---
Addendum entered and electronically signed by Isrrael Conn DO 04/24/25 10:24:
I saw and examined the patient.
The Christian Counselor's note was reviewed and I agree with the note.
Comment:
Plan:
Pt admitted with AFib RVR, HF and concern for aspiration PNA
Pt has received Amiodarone load last admit and IV boluses this admit
Add IV Digoxin and may consider IV Cardizem if needed for bp control
Cont Eliquis for stroke prophylaxis
She may benefit from cardioversion prior to d/c pending clinically course
IV lasix diuresis. Monitor Is and Os, daily wts and cr
proBNP is highest this had ever been at 8000 and chest x-ray shows evidence of bilateral pleural effusions
Wean O2 as able
Tx of aspiration PNA as per primary service.
Bp has limited tx options
Reviewed most recent echo with her and discussed her significant MR. Discussed consideration for Mitraclip however she may at elevated risk given her deconditioning, fraility and comorbid conditions.
Could consider outpt eval.
Remains with guarded prognosis
- DNR code status
Discussed with nursing.
Original Note:
Consultation
Consultation Request
Date/Time Consultation Performed: 04/24/25
Requesting Provider: Dr. Ramírez
Performing Provider: Victoria Lorenzo PA-C for Dr. Conn
Reason for Consultation: afib
Medical History
-
Chief Complaint: SOB
History of Present Illness:
Patient with several recent admissions for atrial fibrillation, initially diagnosed 02/2025, now presents back to PM on 04/23 due to shortness of breath and cough. Earlier in day yesterday, patient reports she had 'choked on an egg'. She had an
x-ray at her rehab facility and was told that she has pneumonia. Noted to be in rapid atrial flutter. She does report some palpitations, however currently improved. She has been maintained on Amio 200 mg nightly after sufficient loading last 2
admissions. She is also on diltiazem to 40 mg daily and Eliquis 2.5 mg twice daily based on age and weight.
PMH:
Symptomatic paroxysmal atrial fibrillation, initially diagnosed 03/06/25
Admission [facility] for hematuria, urinary retention, afib, abd pain 03/06-03/16/25
Admission for afib 04/01-04/05/25
Moderate to severe MR
Severe TR
HTN
COPD
Active smoker
Hypoalbuminemia
DNR code status
Past Medical History
Past Medical History: Other (In HPI)
Past Surgical History: None
Social History
Tobacco: Smoker
Alcohol: None
Drug: None
Personal:
Living[facility] ([facility]hab since 03/2025 admission)
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
Family History
Family History: Other (No FH of CAD)
Allergies / Home Medications
Allergy/AdvReac Type Severity Reaction Status Date / Time
Penicillins Allergy Rash Verified 04/01/25 14:13
�Medication �Instructions �Recorded �Confirmed �Type
lidocaine 5 % topical patch 1 patch topical DAILYPRN PRN lower 03/06/25 04/23/25 History
back
apixaban 2.5 mg tablet (Eliquis) 2.5 mg PO BID Blood clot 03/15/25 04/23/25 Rx
prevention/tx #0 tabs
guaifenesin 600 mg tablet, 600 mg PO Q12 Lung/breathing 03/15/25 04/23/25 Rx
extended release 12 hr issues #0 tabs
ipratropium 0.5 mg-albuterol 3 mg 3 ml inhalation R Q4HPRN PRN sob 03/15/25 04/23/25 Rx
(2.5 mg base)/3 mL nebulization #0 mL
soln
ipratropium 0.5 mg-albuterol 3 mg 3 ml inhalation R QID 03/15/25 04/23/25 Rx
(2.5 mg base)/3 mL nebulization Lung/breathing issues #0 mL
soln
oxycodone 5 mg tablet 5 mg PO BIDPRN PRN severe pain #5 03/15/25 04/23/25 Rx
tabs
pantoprazole 40 mg tablet,delayed 40 mg PO DAILY Gastrointestinal 03/15/25 04/23/25 Rx
release issue #0 tabs
bisacodyl 10 mg rectal suppository 10 mg IN DAILYPRN PRN if no bm 04/01/25 04/23/25 History
(Dulcolax (bisacodyl)) aftr mom give on day 5
docusate sodium 100 mg capsule 200 mg PO HS Constipation 04/01/25 04/23/25 History
(Colace)
peppermint 350 mg capsule 50 mg PO DAILY 04/01/25 04/23/25 History
polyethylene glycol 3350 17 gram 17 g PO DAILYPRN PRN constipation 04/01/25 04/23/25 History
oral powder packet
sennosides 8.6 mg tablet (senna) 17.2 mg PO Q48H 04/01/25 04/23/25 History
sodium phosphates 19 gram-7 118 ml IN DAILYPRN PRN if no bm 04/01/25 04/23/25 History
gram/118 mL enema (Fleet Enema) aftr dulcolax give on day 6
lorazepam 0.5 mg tablet 0.5 mg PO Q6HPRN PRN anixety #4 04/05/25 04/23/25 Rx
tabs
Saccharomyces boulardii 250 mg 250 mg PO BID 04/23/25 04/23/25 History
capsule (Florastor)
acetaminophen 325 mg tablet 650 mg PO Q4H PRN fever 04/23/25 04/23/25 History
acetaminophen 325 mg tablet 650 mg PO Q6HPRN PRN mild pain 04/23/25 04/23/25 History
amiodarone 200 mg tablet (Pacerone) 200 mg PO HS Arrhythmia 04/23/25 04/23/25 History
calcium 500 mg (as 1 tab PO DAILY@1200 04/23/25 04/23/25 History
carbonate)-vitamin D3 3.125 mcg
(125 unit) tablet
diltiazem HCl 240 mg capsule,24 240 mg PO DAILY 04/23/25 04/23/25 History
hr,extended release
doxycycline hyclate 100 mg tablet 100 mg PO BID 04/23/25 04/23/25 History
furosemide 20 mg tablet 20 mg PO MOWEFR 04/23/25 04/23/25 History
magnesium hydroxide 400 mg/5 mL 30 ml PO [id number] PRN if no bm for 04/23/25 04/23/25 History
oral suspension (Milk of Magnesia) 3 days gvie on day 4
nicotine 7 mg/24 hr daily 7 mg transdermal QPM Smoking 04/23/25 04/23/25 History
transdermal patch cessation
Review of Systems
-
History Source: Patient
All other systems: Negative unless noted
Physical Exam
Vital Signs
Temp Pulse Resp BP Pulse Ox
97.4 F 132 22 101/74 99
04/24/25 02:11 04/24/25 05:15 04/24/25 02:11 04/24/25 04:24 04/24/25 07:22
Lab Results
04/24/25 04:13
04/24/25 04:13
Troponin I 0.029 ng/ml 04/23/25 14:30
Xhy-M-Igttzmkemve Pept 8000 pg/ml 04/23/25 14:30
Physical Exam
General: No Apparent Distress, Comfortable and Other (frail appearing. on supp O2)
HEENT: Normocephalic, Anicteric and Moist Mucous Membranes
Respiratory: Rhonchi and Non Labored Respirations
Cardiac: S1/S2 and Irregular Rhythm
GI: Soft, Non Tender, Non Distended and Normal Bowel Sounds
Musculoskeletal: No Clubbing, No Cyanosis and Edema (trace of B/L LE)
Skin: Warm and Dry
Neuro: AO x 3
Impression / Plan
-
Primary Er Nurse: initially seen by Dr. Shantal Mercado
Assessment:
Presentation with cough, SOB
Concern for aspiration PNA
Concern for acute HFpEF
Typical atrial flutter with RVR
Symptomatic paroxysmal atrial fibrillation, initially diagnosed 03/06/25
Admission [facility] for hematuria, urinary retention, afib, abd pain 03/06-03/16/25
Admission for afib 04/01-04/05/25
Moderate to severe MR
Severe TR
HTN
COPD
Active smoker
Hypoalbuminemia
DNR code status
ECHO 03/07/25: EF 64%, aortic sclerosis, dense MAC, in some views possible posterior MVP, moderate to severe probably severe MR, severe TR, PAP 61 mmHg
Plan:
- Patient presents with cough and shortness of breath
- Noted to be in typical atrial flutter with RVR. She has had several recent admissions for atrial fibrillation, which has been refractory to amiodarone therapy
- Also hypotensive, limiting rate control options.
- Will plan to initiate IV digoxin stat as creatinine stable at 1. if BP improves with HR stabilization, would start IV cardizem gtt later this morning
- Treatment of possible aspiration pneumonia per primary service
- Would also attempt IV diuresis as blood pressure allows as proBNP is highest this had ever been at 8000 and chest x-ray shows evidence of bilateral pleural effusions
- Wean supplemental O2 as able
- Most recent echo 03/07/2025 with results as above. Suspect mitral regurgitation contributing to arrhythmia
- Continue amiodarone 200 mg daily. Would not uptitrate given significant prior load
- continue eliquis 2.5mg BID
- would consider for CV prior to DC once improved from respiratory status
- could consider candidacy for mitraclip however could be high risk given frailty and comorbidities
- patient very ill from cardiac standpoint
- DNR code status
Data Reviewed
-
EKG: Tracing Personally Visualized and interpreted
Radiology: Report Reviewed by me
Medical Tests (Nuc Med, Echo etc): Report Reviewed by me
Labs: Labs Reviewed by me
Old Records: Reviewed
[2025-04-24] MEDS: DUONEB 3 ML INH ×4 (07:56→19:52)
--- NOTE | 2025-04-24 09:06 | CON.PUL ---
Consultation
Consultation Request
Date/Time Consultation Requested: 04/24/25
Date/Time Consultation Performed: 04/24/25
Performing Provider: Del
Reason for Consultation: AE COPD
Medical History
-
History of Present Illness:
Patient is an 89-year-old female with previous history of COPD, hypertension, anxiety, A-fib presenting from [facility] for recent choking episode that occurred while she was eating eggs which resulted in difficulty breathing and a checks x-ray. The
chest x-ray was concerning for pneumonia. She has complaints of fast heart rate and palpitations. She has been hospitalized twice for COPD, A-fib and hypotension in the past 2 months. In the emergency room, she was noted to have elevated proBNP,
bilateral pleural effusions, EKG with atrial flutter with variable AV block, lactic acidosis. She is placed on 3 L nasal cannula, at baseline on no oxygen supplementation at home.
Past Medical History
Past Medical History: Other (see list below)
Social History
Tobacco: Former Smoker
Alcohol: None
Drug: None
Family History
Family History: Reviewed & Not Pertinent
Allergies / Home Medications
Allergies
Allergy/AdvReac Type Severity Reaction Status Date / Time
Penicillins Allergy Rash Verified 04/01/25 14:13
Home Medications
�Medication �Instructions �Recorded �Confirmed �Last Taken �Type
lidocaine 5 % topical patch 1 patch topical DAILYPRN PRN lower 03/06/25 04/23/25 Unknown History
back
apixaban 2.5 mg tablet (Eliquis) 2.5 mg PO BID Blood clot 03/15/25 04/23/25 04/23/25 Rx
prevention/tx #0 tabs
guaifenesin 600 mg tablet, 600 mg PO Q12 Lung/breathing 03/15/25 04/23/25 04/23/25 Rx
extended release 12 hr issues #0 tabs
ipratropium 0.5 mg-albuterol 3 mg 3 ml inhalation R Q4HPRN PRN sob 03/15/25 04/23/2504/23/25 Rx
(2.5 mg base)/3 mL nebulization #0 mL
soln
ipratropium 0.5 mg-albuterol 3 mg 3 ml inhalation R QID 03/15/25 04/23/25 04/23/25 Rx
(2.5 mg base)/3 mL nebulization Lung/breathing issues #0 mL
soln
oxycodone 5 mg tablet 5 mg PO BIDPRN PRN severe pain #5 03/15/25 04/23/25 03/20/25 Rx
tabs
pantoprazole 40 mg tablet,delayed 40 mg PO DAILY Gastrointestinal 03/15/25 04/23/25 04/23/25 Rx
release issue #0 tabs
bisacodyl 10 mg rectal suppository 10 mg ND DAILYPRN PRN if no bm 04/01/25 04/23/25 Unknown History
(Dulcolax (bisacodyl)) aftr mom give on day 5
docusate sodium 100 mg capsule 200 mg PO HS Constipation 04/01/25 04/23/25 04/22/25 History
(Colace)
peppermint 350 mg capsule 50 mg PO DAILY 04/01/25 04/23/25 04/23/25 History
polyethylene glycol 3350 17 gram 17 g PO DAILYPRN PRN constipation 04/01/25 04/23/25 Unknown History
oral powder packet
sennosides 8.6 mg tablet (senna) 17.2 mg PO Q48H 04/01/25 04/23/25 04/19/25 History
sodium phosphates 19 gram-7 118 ml ND DAILYPRN PRN if no bm 04/01/25 04/23/25 Unknown History
gram/118 mL enema (Fleet Enema) aftr dulcolax give on day 6
lorazepam 0.5 mg tablet 0.5 mg PO Q6HPRN PRN anixety #4 04/05/25 04/23/25 04/23/25 Rx
tabs
Saccharomyces boulardii 250 mg 250 mg PO BID 04/23/25 04/23/25 04/23/25 History
capsule (Florastor)
acetaminophen 325 mg tablet 650 mg PO Q4H PRN fever 04/23/25 04/23/25 Unknown History
acetaminophen 325 mg tablet 650 mg PO Q6HPRN PRN mild pain 04/23/25 04/23/25 Unknown History
amiodarone 200 mg tablet (Pacerone) 200 mg PO HS Arrhythmia 04/23/25 04/23/25 04/22/25 History
calcium 500 mg (as 1 tab PO DAILY@1200 04/23/25 04/23/25 04/23/25 History
carbonate)-vitamin D3 3.125 mcg
(125 unit) tablet
diltiazem HCl 240 mg capsule,24 240 mg PO DAILY 04/23/25 04/23/25 04/23/25 History
hr,extended release
doxycycline hyclate 100 mg tablet 100 mg PO BID 04/23/25 04/23/25 04/23/25 History
furosemide 20 mg tablet 20 mg PO MOWEFR 04/23/25 04/23/25 04/22/25 History
magnesium hydroxide 400 mg/5 mL 30 ml PO [id number] PRN if no bm for 04/23/25 04/23/25 Unknown History
oral suspension (Milk of Magnesia) 3 days gvie on day 4
nicotine 7 mg/24 hr daily 7 mg transdermal QPM Smoking 04/23/25 04/23/25 04/22/25 History
transdermal patch cessation
Review of Systems
-
History Source: Patient
All other systems: Negative unless noted
Vitals / Labs / Diagnostic Testing
Vital Signs
Temp Pulse Resp BP Pulse Ox
97.4 F 136 18 101/74 98
04/24/25 02:11 04/24/25 07:59 04/24/25 07:59 04/24/25 04:24 04/24/25 07:59
Lab Data
04/24/25 04:13
04/24/25 04:13
Microbiology
04/23/25 14:32 Nasal Swab Influenza Types A & B (GERI) - Final
Negative for Influenza A & B, NAAT
Negative results must be combined with clinical observations
and patient history.
Nucleic Acid Amplification test (NAAT)performed on the
[employer] platform.
Diagnostic Testing:
Physical Exam
-
HEENT: Normocephalic, Anicteric and Moist Mucous Membranes
Cardiovascular: S1/S2 and Regular Rhythm
Respiratory: Clear and Non-Labored Respirations
GI: Soft, Non Distended and Non Tender
Neurology: Awake, Alert, Oriented, No Motor Deficits and Other (depressed appearing)
Skin: Warm, Dry and Good Color
General: Comfortable, Poor Appetite and Other (thin/cachectic appearing)
Assessment
-
Patient is an 89-year-old female with previous history of COPD, hypertension, anxiety, A-fib presenting from [facility] for recent choking episode that occurred while she was eating eggs which resulted in difficulty breathing and a checks x-ray. The
chest x-ray was concerning for pneumonia. She has complaints of fast heart rate and palpitations. She has been hospitalized twice for COPD, A-fib and hypotension in the past 2 months. In the emergency room, she was noted to have elevated proBNP,
bilateral pleural effusions, EKG with atrial flutter with variable AV block, lactic acidosis. She is placed on 3 L nasal cannula, at baseline on no oxygen supplementation at home. Adm to tele for AECOPD. We are consulted for eval.
AE COPD
SOB 2/2 choking episode
Acute hypoxic respiratory insufficiency
Acute on chronic heart failure exacerbation, proBNP 8000
Bilateral pleural effusions
A-fib/A-flutter
Hyponatremia
Metabolic acidosis
Conditions present prior to admission
COPD
Former smoker, 60 pack years-active on and off
Persistent atrial fibrillation on amiodarone and Eliquis
Chronic heart failure with preserved EF
Plan
Hypoxemia noted on arrival, O2 radha 64%, placed on 3 L
She has been placed on oxygen in the past but has been able to improved to room air
Home O2 evaluation will be needed eventually
Prior history of lung disease is noted including COPD, last seen in office 2018 has not followed up
No prior PFTs for review
I will obtain one for staging purposes
Suspect patient has AECOPD, AE CHF, decompensation overall
She has had previous admissions and discharges from on 04/05 and 03/17 for similar
CXR/CT obtained indicating bilateral effusions
Other imaging reviewed-has minimal effusions on prior imaging
She is placed on IV antibiotics and p.o. prednisone
proBNP 8000, she has not yet resumed on Lasix
Cardiology evaluation obtained for active A-fib, given Amio
Prior ECHO results are reviewed indicating preserved function
Comorbid heart failure exacerbation is noted
Smoking history noted-60 pack years, likely ongoing/intermittent use
Smoking cessation encouraged
Weight loss is noted, BMI 16
She has evidence of pulmonary cachexia
Prior ABG does not demonstrate chronic CO2 retention
She is DNR
Will need outpatient pulmonary evaluation in our office for PFTs and 6MWT-however she has been noncompliant in the past with no-show visits
Goals of care discussions would be needed in this situation with recurrent admissions and multiple serious comorbidities
We will follow
Diagnostic Data
Chest X-Ray: 04/23/25-Left greater than right small bilateral pleural effusions with adjacent airspace opacities favored to represent atelectasis, however pneumonia cannot be excluded.
04/01/25-Mild opacity in the left lung base suggesting atelectasis and/or trace pleural fluid. No other pulmonary consolidation. No pneumothorax. Stable cardiomediastinal silhouette. Chronic degenerative changes of the spine.
CT Scan: AP 03/06/25-lung base- Lower Chest: Small bilateral pleural effusions with adjacent compressive atelectasis. Mild to moderate cardiomegaly. Small to moderate sliding hernia.
Echo: 03/07/25-1. Left ventricular ejection fraction is normal with an ejection fraction of 64 % by Garcia's biplane method of discs.
2. Right ventricular size and systolic function are within normal limits.
3. Aortic valve sclerosis without stenosis.
4. Dense mitral annular calcification.
5. In some views possibly posterior leaflet mitral valve prolapse. Moderate to severe probably severe mitral regurgitation.
6. Severe tricuspid regurgitation. Estimated pulmonary artery pressure of 61 mmHg assuming a right atrial pressure of 8 mmHg.
PFT's:
Reports and relevant images were personally reviewed.
Total time spent on this consultation __75__ minutes which includes review of history, physical exam, medications, laboratory data, personal review of imaging, extensive review of outpatient records, discussion with care team and respiratory therapy.
[2025-04-24] MEDS: CARDIZEM CD 240 MG PO (09:24)
[2025-04-24] MEDS: DELTASONE 50 MG PO (09:24)
[2025-04-24] MEDS: FLORASTOR 250 MG PO ×2 (09:25→20:17)
[2025-04-24] MEDS: MUCINEX 600 MG PO ×2 (09:25→20:16)
[2025-04-24] MEDS: PROTONIX 40 MG PO (09:25)
[2025-04-24] MEDS: ELIQUIS 2.5 MG PO ×2 (09:25→20:17)
[2025-04-24] MEDS: LANOXIN 250 MCG IV ×2 (10:13→13:00)
[2025-04-24] MEDS: LIDOCAINE 4% PATCH 1 PATCH TOPICAL (10:20)
--- NOTE | 2025-04-24 11:36 | PHA.VAN.FU ---
Vancomycin Assessment / Plan
- Assessment
Renal Function: Stable
WBC's are: WNL
In the past 24 hrs, patient has been: Afebrile
Concomitant Antimicrobials: CEFEPIME 1 GRAM Q12
- Assessment - Therapeutic Drug Monitoring
Random Level: R=14.5 DRAWN~ 5 HRS AFTER LOADING DOSE
- Dosing Plan
Dosing by Level: Re-dose today (500 MG X 1 DOSE)
- Monitoring Plan
Next Level Due (Date): 04/25 @0600
- Follow Up
Pharmacy will continue to follow.
Vancomycin Follow UP
- -
Patient Age: 89
Patient Sex: Female
Vancomycin Day #: 2
Indication: Pulmonary/Respiratory
Requesting Provider: Dr Esther Valenzuela ( Resident)
Pertinent Antimicrobial Allergies:
Penicillin w. rash.
Height / Weight:
Height 5 ft
Actual Weight 38.192 kg
IBW in k.5
Pertinent Past Medical History: COPD, DYSPHAGIA, BMI~16
- Vital Signs / Lab Results
Temp Pulse Resp BP Pulse Ox
97.9 F 104 18 101/74 100
04/24/25 11:15 04/24/25 11:12 04/24/25 11:12 04/24/25 04:24 04/24/25 11:15
Lab Results - Hematology
04/23/25 04/24/25
14:30 04:13
WBC 10.0 9.5
Lab Results - Chemistry
04/23/25 04/24/25
14:30 04:13
BUN 26 H 31 H
Creatinine 0.9 1.0
Estimated Creat Clear 27 24
Albumin 2.9 L
04/23/25 04/23/25
14:30 19:04
Lactic Acid 2.1 H 1.8
Microbiology Results
04/23/25 14:32 Influenza Types A & B (GERI) - Final
Nasal Swab Negative for Influenza A & B, NAAT
Negative results must be combined with clinical observations
and patient history.
Nucleic Acid Amplification test (NAAT)performed on the
[employer] platform.
Therapeutic Drug Monitoring
Random Vancomycin 14.5 ug/ml 04/24/25 04:13
[2025-04-24] MEDS: LASIX 20 MG IV (13:53)
[2025-04-24] MEDS: VANCOCIN HCL 500 MG 100 IV (13:53)
[2025-04-24] MEDS: OSCAL 500 + D PO (13:54)
--- NOTE | 2025-04-24 14:33 | PTCARENOTE ---
Assumed care of the pt @0700. Pt is AAOx3 forgetful @ times A Flutter on the monitor rates 110- 130's B/L LE pulses by Doppler. Lungs diminished with crackles in bases o2 down to 2 LPM NC. +HOLM. Pt is incontinent of urine. Q2 turns and skin care
provided . Wound care order placed. Call shields within reach.
--- NOTE | 2025-04-24 14:42 | PN.CDI ---
CDI
- -
CDI:
Physician Documentation Request
Admit Date: 04/23/25 19:34
Dear Doctor Esther and Dr. Ramírez,
Please review the following and provide your response in the progress notes.
Clinical Indicators:
Nut Culler, 04/24
#Current BW: (04/24) 84 lbs 3.2 oz BMI: 16.4 (underweight).
#...Weight history (03/13/25) 87 lbs
#...meets AND and ASPEN criteria for severe protein calorie malnutrition
#...of chronic disease due to
#...severe fat and muscle loss at her clavicle and around her orbital.
Based on the above information and your clinical assessment, please clarify which of the following most accurately represents the patient's nutritional status:
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
severe fat and muscle loss clavicle and orbital, if you agree)
Other (please specify)
[place] Criteria ([facility] Hospitalist 2017)
2 or more criteria must be present for either
non severe or severe malnutrition
Note that the criteria differs related to the
presence of an acute or chronic illness
Chronic Illness
Energy Intake Non Severe: <75% for >1 month
Severe: <75% for >1 month
Weight Loss Non Severe: 5% over 1 month
7.5% over 3 months
10% over 6 months
20% over 1 year
Severe: >5% over 1 month
>7.5% over 3 months
>10% over 6 months
>20% over 1 year
Body Fat Non Severe: Mild Loss
Severe: Severe Loss
Muscle Mass Non Severe: Mild Loss
Severe: Severe Loss
Use of terms such as suspected, likely, concern for, or probable (associated with a specific diagnosis that is being evaluated, monitored, or treated as if it exists) are acceptable and can be coded in the inpatient setting, when documented at the
time of discharge.
Thank you,
Virgie Kim RN BSN CCDS
CDI Specialist
Please contact via tiger text
Please use your independent medical judgment in providing your response.
--- NOTE | 2025-04-24 14:45 | PTCARENOTE ---
Speech Therapist up to eval pt and recommended supervised feeds meds with applesauce
--- NOTE | 2025-04-24 14:52 | PN.CDI ---
CDI
- -
CDI:
Physician Documentation Request
Admit Date: 04/23/25 19:34
Dear Doctor Esther and Dr. Ramírez,
Please review the following and provide your response in the progress notes.
Clinical Indicators:
Nurses Note/Assessment, 04/22
Selected Entries
04/23/25
21:45
Pressure injury stage [Present on admission Sacrum] Stage 2
Physician documentation of the type and location of wounds is required for compliant documentation. Based on the above clinical findings and your assessment, please provide the following in your progress note:
Yes, Stage 2 sacrum pressure injury, POA
No, Stage 2 sacrum pressure injury
Other (please specify)
1. Location of the ulcer/wound, including laterality.
2. Type (etiology) of ulcer/wound:
- Diabetic ulcer
- Arterial (ischemic) ulcer
- Traumatic wound
- Venous stasis ulcer
- Pressure (decubitus) ulcer
3. For a pressure ulcer, please also include the stage* of the ulcer:
- Stage 1 - Skin intact, non-blanchable redness
- Stage 2 - Partial thickness loss of dermis, includes intact or open blister
- Stage 3 - Full thickness tissue not including bone, tendon or muscle
- Stage 4 - Full thickness tissue loss, including exposed bone, tendon or muscle
- Unstageable - Full thickness loss in which the base of the ulcer is covered by slough (yellow, villa, hennessy, green or brown) and/or eschar (villa, brown or black) in the wound bed.
- Unable to determine
Use of terms such as suspected, likely, concern for, or probable (associated with a specific diagnosis that is being evaluated, monitored, or treated as if it exists) are acceptable and can be coded in the inpatient setting, when documented at the
time of discharge.
Thank you,
Virgie Kim RN BSN CCDS
CDI Specialist
Please contact via tiger text
Please use your independent medical judgment in providing your response.
*Source: National Pressure Ulcer Advisory Panel (NPUAP)
--- NOTE | 2025-04-24 15:15 | PTOTSP ---
Speech Therapy Evaluation:
Pt with chronic risk factors of dysphagia (AE COPD, RLD, active smoker, known oropharyngeal dysphagia s/p VSE 03/2025). Pt presented to hospital following choking incident on eggs. Pt reported choking incident was an isolated event and denied prior
difficulty with PO intake. At bedside, mild oral impairments observed, likely related to partially edentulous state. No overt s/sx of aspiration across trials. Did observe consistent belching following ingestion of liquids, suspicious for esophageal
involvement. Given CXR in favor of atelectasis, WBC WNL, performance at bedside, and pt reported isolated incident, recommend to initiate baseline diet with direct supervision.
Recommend:
1. Initiate baseline diet of IDDSI Level 6 (soft and bite sized solids) and IDDSI Level 2 (mildly thick liquids)
2. Medications in puree
3. Strict aspiration and reflux precautions
4. Direct supervision with intake
5. [employer] to follow to monitor tolerance of diet, determine if pt would benefit from further modifications, and determine if pt would benefit from repeat instrumental assessment
--- NOTE | 2025-04-24 15:54 | WOUNDNOTE ---
TIP OF RIGHT GREAT TOE
--- NOTE | 2025-04-24 15:55 | WOUNDNOTE ---
RIGHT 5TH TOE
--- NOTE | 2025-04-24 15:55 | WOUNDNOTE ---
TIP OF LEFT GREAT TOE
--- NOTE | 2025-04-24 15:58 | WOUNDNOTE ---
[facility] RN note: Patient admitted with COPD exacerbation
See H&P for complete history.
PMH: COPD, HTN, recently diagnosed atrial fibrillation with recent admission from 04/01-04/05 for A-fib with RVR and resultant hypotension. Per chart review, patient is an active smoker.
Wound Location and type/assessment: Patient admitted with stage 3 sacral PI with yellow necrotic wound base. Wound has deteriorated since prior admission. See worklist for measurements and details. Patient also has intact blisters to bilateral
first toes. Heels intact and off-loaded with pillows under calves.
Appetite: BMI 16
Pressure redistribution devices in place: Static air overlay ordered. MADYSON Clarke made aware. Patient is on a turning schedule and was repositioned on a right semi-side lying position.
Plan: Will recommend Honey gel to sacral wound. This keno writer/runner called [facility] for Honey Gel. MADYSON Clarke made aware. Orders confirmed with hospitalist. Patient has several comorbidities including COPD, BMI 16, and 60 pack year smoker. Wounds may worsen and
new wounds may develop, even with optimal care.
.
Note to case management of equipment requested for discharge:
Recommend follow up at wound care center upon discharge.
--- NOTE | 2025-04-24 16:09 | CM ---
Chart reviewed. I spoke with the patient and her son, Chandrakant. Patient was recently discharged (04/05) from [facility] to [facility]. Prior to that the patient was independent of ADLS, lives with alone in a split level, ambulates with a SPC. Patient
was wheelchair bound at [place]. Patient does not want to go back to [facility]. Referrals sent to [facility] and [facility]. Plan is for the patient to go to [facility] Rehab when medically stable. CM to follow
--- NOTE | 2025-04-24 16:30 | PTCARENOTE ---
Wound care nurse up to kadie pt and ordered static air overlay. Virgil and I placed on bed. Sacral wound was treated with honey gel by this nurse. mid back foam boarder applied for protection. Mouth care performed with swabs.
[2025-04-24] MEDS: NICODERM TRANSDERMAL 7 MG TRANSDERM (17:50)
[2025-04-24] MEDS: LASIX 40 MG IV (17:51)
[2025-04-24] MEDS: REMOVE LIDOCAINE PATCH 1 PATCH REMOVE (20:19)
[2025-04-24] MEDS: PACERONE 200 MG PO (22:22)
[2025-04-24] MEDS: COLACE 200 MG PO (22:22)
[2025-04-25] VITALS (9 sets, daily range): BP systolic 95–126; BP diastolic 64–85; PULSE 83; O2SAT 98; BMI 18.3
--- NOTE | 2025-04-25 01:50 | PTCARENOTE ---
Assumed care on pt at 1900, aaox3, declined and weak, able to make needs known. O2 at 2L/min, lungs diminished throughout, Pox 94%. Afib/Aflutter on tele monitor, HR sustaining 80-90's, bp stable. T&R q2hr, sacral dressing intact, overlay mattress
check for inflation. Aspiration precautions maintained. Call light within reach, updated pt on POC.
[2025-04-25] MEDS: MAXIPIME 1000 MG IV (03:26)
[2025-04-25] MEDS: STERILE WATER FOR INJECTION 10 ML IV (03:26)
[2025-04-25 04:11] LABS: Hematocrit 34.8 % (37.0-47.0); Hemoglobin 11.4 g/dL (12.0-16.0); Mean Corp Hgb Conc. 32.8 g/dL (33.0-37.0); Mean Corpuscular Volume 85.7 fL (81.0-99.0); Platelet Count 309 10^3/uL (130-400); Red Cell Dist. Width 21.0 % (11.5-14.5)
[2025-04-25 04:31] LABS: Blood Urea Nitrogen 34 mg/dl (7-17); Calcium 7.7 mg/dl (8.4-10.2); Carbon Dioxide 20 mmol/L (22-30); Chloride 106 mmol/L (98-107); Estimated Creatinine Clearance 24 ml/min; Glucose 115 mg/dl (70-99); Magnesium 1.7 mg/dl (1.6-2.3); Potassium 3.9 mmol/L (3.5-5.1); Sodium 132 mmol/L (135-145); eGFR 48.63
--- NOTE | 2025-04-25 07:01 | W.PN.HOSP.TC ---
Addendum entered and electronically signed by Virgie Ramírez MD 04/25/25 14:29:
I saw and evaluated the patient independently. I reviewed the resident�s note and agree with findings and plan as documented by Dr. Santana.
GENERAL: frail cachectic female in some resp distress with less pursed lip breathing
HEENT: NC/AT--off O2
HEART: irreg irreg --tachy
LUNGS : clear to auscultation bilaterally--decreased breath sounds-- no wheezing
ABDOM: soft, nontender, nondistended, + bowel sounds
EXT: no cyanosis, clubbing, or edema
NEUROLOGIC: grossly intact
Acute hypoxic respiratory failure --on 2-3 L O2--likely from COPD exacerbation with less likely possible aspiration pneumonitis/pneumonia but more likely CHF exacerbation--this is 2nd or 3rd visit in the last 2 months--cont O2, stop
vanco/cefepime--would cont nebs/diuresis and apprec pulm--off O2 and sitting in the chair
Atrial flutter with variable AV block--Patient with history of A-fib with RVR, now with a flutter--has seen cards in past--apprec cards--amio/dig--discussion cardioversion for tomorrow ---likely precipitated by resp issues--cont eliquis
Acute on Chronic HFpEF--Last echo 03/07/2025 EF 64%--pro BNP 8000 -cont lasix--no need for repeat ECHO
Dysphagia--had choking episode on eggs earlier--apprec speech eval
wounds-POA--stage 2 sacrum pressure injury
severe protein calorie malnutrition--apprec dietary
Essential Hypertension--BP soft but may be from intolerant rapid aflutter--apprec cards input to help with rate control
DVT prophylaxis Eliquis
Code status-- DNR, living will available
Original Note:
Today's Communication/Plan
-
Do CXR
DC Abx
Assessment / Plan
Assessment / Plan
IMPRESSION:
In summary, Ms. Lugo is an 89-year-old patient with a past medical history of COPD, hypertension, A-fib with RVR who was admitted 2 days ago in acute respiratory distress.
PLAN:
1) Acute hypoxic respiratory failure
Multifactorial, likely secondary to COPD Exacerbation, with possible aspiration pneumonitis/pneumonia Admitted to IVU
Patient without rales or wheezing, minimal pitting edema, consider chronic respiratory insufficiency
Do home O2 assessment (Upon discharge as patient is too decondition to appropriately participate).
Check repeat CXR
Placed on oxygen supplementation, goal O2 >88%,
Continue respiratory treatment with DuoNebs 3 mL q6hr
Pneumonia unlikely, discontinue IV cefepime 1 g Q8
MRSA Neg, IV vancomycin discontinued (ED gave oral vanco but that does not work for pneumonia)
P.o. Prednisone 50 mg, taper, continue
Pulmonology following
Monitor respiratory status, vital signs closely.
Daily CBC, CMP,
2) Atrial flutter with variable AV block
Patient with history of A-fib with RVR, now with a flutter, heart rate mostly <90s
Cardiology input appreciated, to decide if he cardioversion.
IV Digoxin started yesterday.
May consider IV Cardizem if needed for bp control
Monitor on telemetry
Ct Eliquis
3) Chronic HFpEF
Last echo 03/07/2025 EF 64%
Pro BNP elevated;8000
Commenced on Lasix yesterday, IV 40mg
Cr now at 1.1 up from 1 yesterday, monitor S Cr closely
Repeat CXR
Strict I/O, Daily weight
No need for IVF or repeat ECHO
4) Renal insufficiency
Se Cr now u from baseline of 0.9 to 1.1
Continue to monitor daily renal status
Continue IV Lasix, patient needs diuresing
5) Hypocalcemia
Se Ca 7.7, do CMP to correct for Hypoalbuminemia.
6) Dysphagia
She is presenting following a choking episode.
Speech-language pathology recommendations appreciated .
Choking episode is an isolated event.
Can diet resumed
7) Protein Energy malnutrition.
Severely cachectic, BMI 16
Cleared for diet on IDDSI 2, 6 PEM. DIET
8) Essential Hypertension
Blood pressure now ranging low
Off blood pressure meds for now
On rate control for arrhythmia
9) Deconditioning
Patient with multiple hospital admission in the past 2 months
POT/OT
10) Chronic constipation
No bowel movement since admission.
Schedule bowel regimen
11) Anxiety
Currently on Lorazepam
Patient wants to continue the medication, she says it calms her nerves and helps her sleep.
Continue for now.
Monitor mental status
12) Sacral Pressure wound, Stage 3
Present on admission
Continue on going wound care
DVT prophylaxis Eliquis
Code, DNR, living will available
Dispo Skilled rehab
Anticipated Discharge: 24 - 48 hours
Subjective/Interval History
-
Date of Service: April 25, 2025
Still dyspneic, says she does feel better.
Has yet to move her bowel since admission.
She states to be voiding a lot more and is more incontinent
Objective Data
-
Labs:
Laboratory Results
04/25/25
03:40
WBC 8.5
Hgb 11.4 L
Hct 34.8 L
Plt Count 309
Sodium 132 L
Potassium 3.9
Chloride 106
Carbon Dioxide 20 L
BUN 34 H
Creatinine 1.1 H
Glucose 115 H
Calcium 7.7 L
Vital Signs:
Vital Signs
Temp Pulse Resp BP Pulse Ox
98.0 F 77 20 112/78 100
04/25/25 03:31 04/25/25 03:32 04/25/25 03:31 04/25/25 03:32 04/25/25 03:31
I&O
04/24/25 04/25/25 04/26/25
06:59 06:59 06:59
Intake Total 200 / 200
Balance 200 / 200
Review of Systems
-
History Source: Patient
Abdomen/GI: Reports Other (Hasn't had a bowel movement since admission)
Neuro: Reports Other (Having trouble word finding)
Physical Exam
-
General: Respiratory Distress (Respiratory distress with pursed lips, better than yesterday), Appears Chronically Ill (BMI is 18.3) and Cachectic (Sev)
HEENT: Oxygen (Intranasal O2 on 3L)
Respiratory: Clear to Auscultation; Negative Wheezes or Rhonchi
Cardiac: Irregular Rhythm (Rates in the 80s during exam)
GI: Soft, Nontender, Nondistended and Normal Bowel Sounds
Genito-urinary: Other (Incontinent on Adult diapers, Increased frequency of urination)
Musculoskeletal: Other (1+ Chente ankle edema. L now reduced)
Skin: Warm and Other (Bilateral bruising on sheen, traumatic)
Neuro: Awake, Alert, Oriented and AO x 3
Psych: Calm
[2025-04-25] MEDS: DUONEB 3 ML INH ×4 (08:05→19:56)
[2025-04-25] MEDS: ELIQUIS 2.5 MG PO ×2 (08:40→19:48)
--- NOTE | 2025-04-25 09:37 | W.PN.PUL3 ---
Today's Communication / Plan
-
PFT with severe reduction in function likely combination of COPD and CHF
Remains on IV lasix and PO prednisone
Planning for possible DCCV per cards
Continue nebs for now
IS effort, OOB as able
Assessment
-
Patient is an 89-year-old female with previous history of COPD, hypertension, anxiety, A-fib presenting from [facility] for recent choking episode that occurred while she was eating eggs which resulted in difficulty breathing and a checks x-ray. The
chest x-ray was concerning for pneumonia. She has complaints of fast heart rate and palpitations. She has been hospitalized twice for COPD, A-fib and hypotension in the past 2 months. In the emergency room, she was noted to have elevated proBNP,
bilateral pleural effusions, EKG with atrial flutter with variable AV block, lactic acidosis. She is placed on 3 L nasal cannula, at baseline on no oxygen supplementation at home. Adm to tele for AECOPD. We are consulted for eval.
AE COPD
SOB 2/2 choking episode
Acute hypoxic respiratory insufficiency
Acute on chronic heart failure exacerbation, proBNP 8000
Bilateral pleural effusions
A-fib/A-flutter
Hyponatremia
Metabolic acidosis
Conditions present prior to admission
COPD
Former smoker, 60 pack years-active on and off
Persistent atrial fibrillation on amiodarone and Eliquis
Chronic heart failure with preserved EF
Plan
Hypoxemia noted on arrival, O2 radha 64%, placed on 3 L--now weaned to RA
She has been placed on oxygen in the past but has been able to improved to room air
Home O2 evaluation can be done if needed
Prior history of lung disease is noted including COPD, last seen in office 2018 has not followed up
No prior PFTs for review
Spirometry obtained--mixed pattern that is severely reduced likely with OLD and RLD
This is likely due to COPD and CHF
She is already on Duonebs QID at home
Physical deconditioning is also likely a contributing factor
IS encouragement
Suspect patient has AECOPD, AE CHF, decompensation overall
She has had previous admissions and discharges from on 04/05 and 03/17 for similar
CXR/CT obtained indicating bilateral effusions
Other imaging reviewed-has minimal effusions on prior imaging
She is placed on IV antibiotics and p.o. prednisone
Can likely stop abx
proBNP 8000, she has not yet resumed on Lasix
Cardiology evaluation obtained for active A-fib, given Amio
Prior ECHO results are reviewed indicating preserved function
Comorbid heart failure exacerbation is noted
Smoking history noted-60 pack years, likely ongoing/intermittent use
Smoking cessation encouraged
Weight loss is noted, BMI 16
She has evidence of pulmonary cachexia
Prior ABG does not demonstrate chronic CO2 retention
Will need outpatient pulmonary evaluation in our office for PFTs and 6MWT-however she has been noncompliant in the past with no-show visits
Goals of care discussions would be needed in this situation with recurrent admissions and multiple serious comorbidities
She is DNR
Diagnostic Data
Chest X-Ray: 04/23/25-Left greater than right small bilateral pleural effusions with adjacent airspace opacities favored to represent atelectasis, however pneumonia cannot be excluded.
04/01/25-Mild opacity in the left lung base suggesting atelectasis and/or trace pleural fluid. No other pulmonary consolidation. No pneumothorax. Stable cardiomediastinal silhouette. Chronic degenerative changes of the spine.
CT Scan: AP 03/06/25-lung base- Lower Chest: Small bilateral pleural effusions with adjacent compressive atelectasis. Mild to moderate cardiomegaly. Small to moderate sliding hernia.
Echo: 03/07/25-1. Left ventricular ejection fraction is normal with an ejection fraction of 64 % by Garcia's biplane method of discs.
2. Right ventricular size and systolic function are within normal limits.
3. Aortic valve sclerosis without stenosis.
4. Dense mitral annular calcification.
5. In some views possibly posterior leaflet mitral valve prolapse. Moderate to severe probably severe mitral regurgitation.
6. Severe tricuspid regurgitation. Estimated pulmonary artery pressure of 61 mmHg assuming a right atrial pressure of 8 mmHg.
PFT's: 04/24/2025-FEV1 0.61 L 40%, FVC 0.62 L 31%, ratio 98-mixed pattern, overall severely reduced-weak effort
Reports and relevant images were personally reviewed.
Total time spent on this consultation __51__ minutes which includes review of history, physical exam, medications, laboratory data, personal review of imaging, extensive review of outpatient records, discussion with care team and respiratory therapy.
Subjective Data
-
Date of Service:
Date of Service: April 25, 2025
Chief Complaint: Pulmonary Follow Up
Subjective:
no new complaints, remains stable on RA
SOB with minimal activity
Objective Data
Data Reviewed
Vital Signs / I&O / Oxygen:
Vital Signs
Temp Pulse Resp BP Pulse Ox
96.1 F L 97 18 115/70 98
04/25/25 07:36 04/25/25 08:08 04/25/25 08:08 04/25/25 07:34 04/25/25 08:08
Intake and Output
04/24/25 04/25/25 04/26/25
06:59 06:59 06:59
Intake Total 200 / 200
Balance 200 / 200
SaO2 98
Nasal Cannula flow liters per 2
minute
Physical Exam
General: Comfortable and Other (thin appearing, NAD)
HEENT: Normocephalic, Anicteric, Moist Mucous Membranes and Other (L eye patch noted)
Cardiovascular: S1-S2 and Regular Rhythm
Respiratory: Clear (decreased overall) and Non-Labored Respirations
GI: Soft, Non Distended and Non Tender
Neurology: Awake, Alert, Oriented and No Motor Deficits
Skin: Warm, Dry and Good Color
Labs/Micro/Reports
Lab Data
04/25/25 03:40
04/25/25 03:40
Microbiology
04/23/25 14:30 Blood/Venous Blood Culture - Preliminary
No Growth in 24 hours- Final report to follow
04/23/25 14:42 Blood/Venous Blood Culture - Preliminary
No Growth in 24 hours- Final report to follow
04/23/25 14:32 Nasal Swab Influenza Types A & B (GERI) - Final
Negative for Influenza A & B, NAAT
Negative results must be combined with clinical observations
and patient history.
Nucleic Acid Amplification test (NAAT)performed on the
[employer] platform.
[2025-04-25] MEDS: DELTASONE 50 MG PO (11:08)
[2025-04-25] MEDS: FLORASTOR 250 MG PO ×2 (11:11→19:48)
[2025-04-25] MEDS: LASIX 40 MG IV (11:12)
[2025-04-25] MEDS: PROTONIX 40 MG PO (11:12)
[2025-04-25] MEDS: LIDOCAINE 4% PATCH 1 PATCH TOPICAL (11:15)
[2025-04-25] MEDS: MUCINEX 600 MG PO ×2 (11:16→19:48)
[2025-04-25] MEDS: ATIVAN 0.5 MG PO ×2 (11:16→19:48)
[2025-04-25] MEDS: LANOXIN 125 MCG PO (11:22)
[2025-04-25] MEDS: OSCAL 500 + D 500 MG PO (11:24)
[2025-04-25] MEDS: CARDIZEM CD 240 MG PO (11:24)
--- NOTE | 2025-04-25 11:54 | W.PN.CARDCBS ---
Addendum entered and electronically signed by Isrrael Conn DO 04/25/25 12:24:
I saw and examined the patient.
The Android Ios Developer's note was reviewed and I agree with the note.
Comment:
Plan:
Patient has recurrent atrial flutter with RVR despite amiodarone therapy.
Heart rate is improved with digoxin however remains in atrial flutter
Continue amiodarone 200 mg daily. Would not uptitrate again as she has already had a recent load.
Continue Eliquis 2.5 mg twice a day.
Discussed cardioversion for tomorrow. Patient has been cleared from a pulmonary standpoint for sedation.
Continue IV diuresis. Her proBNP on admission was the highest it has ever been.
Hypotension has limited treatment options for her atrial flutter.
We did discuss consideration for mitral valve intervention such as MitraClip, however she could be high risk given her frailty and comorbidities. She will be considered for outpatient evaluation
Original Note:
Today's Communication / Plan
-
continue IV lasix
continue ST and treatment of asp PNA
continue dig, po cardizem, amiodarone, eliquis
CV in AM
Impression / Plan
-
Primary Communications Department Chairperson: initially seen by Dr. Shantal Mercado
Assessment:
Presentation with cough, SOB
Concern for aspiration PNA
Concern for acute HFpEF
Typical atrial flutter with RVR
Symptomatic paroxysmal atrial fibrillation, initially diagnosed 03/06/25
Admission [facility] for hematuria, urinary retention, afib, abd pain 03/06-03/16/25
Admission for afib 04/01-04/05/25
Moderate to severe MR
Severe TR
HTN
COPD
Active smoker
Hypoalbuminemia
DNR code status
ECHO 03/07/25: EF 64%, aortic sclerosis, dense MAC, in some views possible posterior MVP, moderate to severe probably severe MR, severe TR, PAP 61 mmHg
Plan:
- Patient presents with cough and shortness of breath
- Noted to be in typical atrial flutter with RVR. She has had several recent admissions for atrial fibrillation, which has been refractory to amiodarone therapy
- Also hypotensive, limiting rate control options.
- overall HR trends improving with addition of digoxin, but remains in aflutter
- Continue amiodarone 200 mg daily. Would not uptitrate given significant prior load
- continue eliquis 2.5mg BID
- continue treatment of aspiration per pulm/speech
- supp O2 weaned off today
- plan for CV in AM. d/w pulm, and felt ok from resp standpoint to proceed
- continue diuresis with IV lasix. Cr 1.1 on 04/25
- Most recent echo 03/07/2025 with results as above. Suspect mitral regurgitation contributing to arrhythmia. could consider candidacy for mitraclip however could be high risk given frailty and comorbidities
- patient very ill. DNR code status
- d/w nursing
Progress Note - Communications Department Chairperson
Subjective
Date of Service: April 25, 2025
no SOB, palpitations
Objective
Labs:
04/25/25 03:40
04/25/25 03:40
Labs
Hgb 11.4 g/dL (12.0-16.0) L 04/25/25 03:40
Hct 34.8 % (37.0-47.0) L 04/25/25 03:40
Plt Count 309 10^3/uL (130-400) 04/25/25 03:40
Sodium 132 mmol/L (135-145) L 04/25/25 03:40
Potassium 3.9 mmol/L (3.5-5.1) 04/25/25 03:40
BUN 34 mg/dl (7-17) H 04/25/25 03:40
Creatinine 1.1 mg/dL (0.6-1.0) H 04/25/25 03:40
Glucose 115 mg/dl (70-99) H 04/25/25 03:40
Troponins
04/23/25
14:30
Troponin I 0.029
Vital Signs and I&O:
Vital Signs
Temp Pulse Resp BP Pulse Ox
96.3 F L 153 18 115/70 95
04/25/25 11:00 04/25/25 11:28 04/25/25 11:28 04/25/25 07:34 04/25/25 11:28
Vital Signs
Temp Pulse Resp BP Pulse Ox
96.3 F L 153 18 115/70 95
04/25/25 11:00 04/25/25 11:28 04/25/25 11:28 04/25/25 07:34 04/25/25 11:28
Intake & Output
04/23/25 04/24/25 04/25/25 04/26/25
07:59 07:59 07:59 07:59
Intake Total 200 / 200
Balance 200 / 200
Physical Exam
Physical Exam
GEN: No distress, awake, alert, oriented to self, place. sitting in chair. frail. glasses on with patch over L eye
HEENT: supple, anicteric, mmm, eomi
LUNGS: Few rhonchi, no wheezes
CV: Irreg irreg, S1/S2, 2/6 murmur
ABD: soft, BS+, NT/ND
EXT: No cyanosis, clubbing, edema
NEURO: Gross non-focal
SKIN: Warm, pink, dry. No rash
[2025-04-25] MEDS: NICODERM TRANSDERMAL 7 MG TRANSDERM (17:51)
--- NOTE | 2025-04-25 19:00 | PTCARENOTE ---
Received pt at change of shift, resting in bed with no complaints of pain or SOB, sat 90% Ra, O2 applied for comfort--> pox 94% on 2L. SR on tel, HR 70's. Aspiration precautions and fall precautions in place, call shields within reach. POC ongoing.
--- NOTE | 2025-04-25 19:42 | PTCARENOTE ---
Pt converted into SR, EKG obtained confirming rhythm.
[2025-04-25] MEDS: REMOVE LIDOCAINE PATCH 1 PATCH REMOVE (19:49)
[2025-04-25] MEDS: PACERONE 200 MG PO (22:28)
[2025-04-25] MEDS: SENOKOT 17.2 MG PO (22:28)
[2025-04-25] MEDS: COLACE 200 MG PO (22:28)
[2025-04-26] VITALS (7 sets, daily range): BP systolic 112–131; BP diastolic 54–98; PULSE 78; O2SAT 98; BMI 17.4
[2025-04-26 04:16] LABS: Hematocrit 34.4 % (37.0-47.0); Hemoglobin 11.7 g/dL (12.0-16.0); Mean Corp Hgb Conc. 34.0 g/dL (33.0-37.0); Mean Corpuscular Volume 86.0 fL (81.0-99.0); Platelet Count 303 10^3/uL (130-400); Red Cell Dist. Width 20.6 % (11.5-14.5)
[2025-04-26 04:39] LABS: ALT (SGPT) 29 U/L (0-35); AST (SGOT) 18 U/L (14-36); Albumin 2.6 g/dl (3.5-5.0); Alkaline Phosphatase 94 U/L (38-126); Blood Urea Nitrogen 37 mg/dl (7-17); Calcium 7.9 mg/dl (8.4-10.2); Carbon Dioxide 22 mmol/L (22-30); Chloride 104 mmol/L (98-107); Estimated Creatinine Clearance 24 ml/min; Glucose 107 mg/dl (70-99); Potassium 4.1 mmol/L (3.5-5.1); Sodium 134 mmol/L (135-145); Total Protein 4.8 g/dl (6.3-8.2); eGFR 48.63
[2025-04-26] MEDS: DUONEB 3 ML INH ×3 (07:08→14:43)
--- NOTE | 2025-04-26 07:52 | W.PN.HOSP.TC ---
Addendum entered and electronically signed by Virgie Ramírez MD 04/26/25 19:38:
I saw and evaluated the patient independently. I reviewed the resident�s note and agree with findings and plan as documented by Dr. Santana.
GENERAL: frail cachectic female in some resp distress with less pursed lip breathing
HEENT: NC/AT--off O2
HEART: irreg irreg --tachy
LUNGS : clear to auscultation bilaterally--decreased breath sounds-- no wheezing
ABDOM: soft, nontender, nondistended, + bowel sounds
EXT: no cyanosis, clubbing, or edema
NEUROLOGIC: grossly intact
Acute hypoxic respiratory failure --on 2-3 L O2--likely from COPD exacerbation with less likely possible aspiration pneumonitis/pneumonia but more likely CHF exacerbation--this is 2nd or 3rd visit in the last 2 months--cont O2, stop
vanco/cefepime--would cont nebs/diuresis and apprec pulm
Atrial flutter with variable AV block--Patient with history of A-fib with RVR, now with a flutter--has seen cards in past--apprec cards--amio/dig--discussion cardioversion but pt spontaneously converted back to sinus rhythm---likely precipitated by
resp issues--cont eliquis
Acute on Chronic HFpEF--Last echo 03/07/2025 EF 64%--pro BNP 8000 -cont lasix--no need for repeat ECHO
Dysphagia--had choking episode on eggs earlier--apprec speech eval
wounds-POA--stage 2 sacrum pressure injury
severe protein calorie malnutrition--apprec dietary
Essential Hypertension--BP soft but may be from intolerant rapid aflutter--apprec cards input to help with rate control
DVT prophylaxis Eliquis
Code status-- DNR, living will available
Original Note:
Today's Communication/Plan
-
Plan is for discharge today
No need for cardioversion
Assessment / Plan
Assessment / Plan
IMPRESSION:
In summary, Ms. Lugo is an 89-year-old patient with a past medical history of COPD, hypertension, A-fib with RVR who was admitted 3 days ago in acute respiratory distress.
PLAN:
1) Acute hypoxic respiratory failure
Multifactorial, likely secondary to COPD Exacerbation, with possible aspiration pneumonitis/pneumonia Admitted to IVU
Patient without rales or wheezing, minimal pitting edema, consider chronic respiratory insufficiency.
Check repeat CXR showed Chente Pleural effusion similar to presentation
She is significantly better than initial presentation, though still intermittently on 1L of Oxygen.
Do home O2 assessment today.
Continue respiratory treatment with DuoNebs 3 mL q6hr
Pneumonia unlikely, discontinue IV cefepime 1 g Q8
MRSA Neg, IV vancomycin discontinued (ED gave oral vanco but that does not work for pneumonia)
P.o. Prednisone 50 mg, taper, continue
Pulmonology following
2) Atrial flutter with variable AV block
Patient with history of A-fib with RVR, now with a flutter, heart rate mostly <90s
She spontaneously converted to Sinus rhythm early last night
Currently on Digoxin.
Ct Eliquis
3) Chronic HFpEF
Last echo 03/07/2025 EF 64%
Pro BNP elevated;8000
On IV Lasix 40mg
Cr now at 1.1 up from 1 yesterday, monitor S Cr closely
Repeat CXR
Strict I/O,
Weight is down to 40.3kg from 42.5kg
No need for IVF or repeat ECHO
4) Renal insufficiency
Stabilized at 1.1
Continue to monitor daily renal status
Continue IV Lasix, patient needs diuresing
5) Hypocalcemia
Se Ca 7.9, corrected 9.0
6) Dysphagia
She is presenting following a choking episode.
Speech-language pathology recommendations appreciated .
Choking episode is an isolated event.
Has resumed diet
7) Protein Energy malnutrition.
Severely cachectic, BMI 16
Cleared for diet on IDDSI 2, 6
8) Essential Hypertension
Blood pressure now ranging low
Off blood pressure meds for now
On rate control for arrhythmia
9) Deconditioning
Patient with multiple hospital admission in the past 2 months
POT/OT
10) Chronic constipation
No bowel movement since admission.
Schedule bowel regimen
11) Anxiety
Currently on Lorazepam
Patient wants to continue the medication, she says it calms her nerves and helps her sleep.
Continue for now.
Monitor mental status
12) Sacral Pressure wound, Stage 3
Present on admission
Continue on going wound care
Patient spontaneously converted to Sinus rythm early hours of this morning.
Home O2 assessment, sat is 98% sitting and 88% ambulating.
Patient's current status was discussed with son, Chandrakant and his .
She is stable now for discharge to be discharged to continue rehab at acute care facility to follow-up with primary care, cardiology, pulmonology and speech therapy after discharge
DVT prophylaxis Eliquis
Code, DNR, living will available
Dispo Skilled rehab
Anticipated Discharge: Today
Subjective/Interval History
-
Date of Service: April 26, 2025
Patient seen.
Says she feels better.
Objective Data
-
Labs:
Laboratory Results
04/26/25
03:42
WBC 8.3
Hgb 11.7 L
Hct 34.4 L
Plt Count 303
Sodium 134 L
Potassium 4.1
Chloride 104
Carbon Dioxide 22
BUN 37 H
Creatinine 1.1 H
Glucose 107 H
Calcium 7.9 L
Total Bilirubin 0.4
AST 18
ALT 29
Alkaline Phosphatase 94
Vital Signs:
Vital Signs
Temp Pulse Resp BP Pulse Ox
97.6 F 78 18 117/67 92
04/25/25 22:35 04/26/25 07:30 04/26/25 07:10 04/26/25 03:26 04/26/25 07:10
I&O
04/25/25 04/26/25 04/27/25
06:59 06:59 06:59
Intake Total 480 / 480
Balance 480 / 480
Review of Systems
-
History Source: Patient
Abdomen/GI: Reports Other (No bowel movement today)
Neuro: Reports Other (Having trouble word finding)
Physical Exam
-
General: Appears Chronically Ill
HEENT: Oxygen (Intranasal O2 on 1L)
Respiratory: Clear to Auscultation; Negative Wheezes or Rhonchi
Cardiac: Irregular Rhythm (Rates in the 80s during exam)
GI: Soft, Nontender, Nondistended and Normal Bowel Sounds
Genito-urinary: Other (Incontinent on Adult diapers, Increased frequency of urination)
Musculoskeletal: Other (1+ Chente ankle edema. L now reduced)
Skin: Warm and Other (Bilateral bruising on sheen, traumatic)
Neuro: Awake, Alert, Oriented and AO x 3
Psych: Calm
Data Reviewed
-
Labs: Labs Reviewed by me, Discussed with Physician, Discussed with Patient and Discussed with Family
--- NOTE | 2025-04-26 08:00 | PTCARENOTE ---
Assumed care of pt from prev nsg shift; Pt drowsy, but easily arousable. AAOx3 w/no c/o CP or SOB. Pt's VSS w/HR in the 70's-80's & BP 115/98 this AM. Pt is SR w/freq PVC's on telemetry monitoring. Pt w/Stg 3 sacral pressure ulcer-dressing changed
overnight, C/D/I. Pt repositioned for comfort. Pt w/call shields within reach & plan of care ongoing.
--- NOTE | 2025-04-26 09:19 | W.PN.PUL3 ---
Today's Communication / Plan
-
DCCV cancelled this AM
No further new recs from our standpoint, continue nebs
OP FU recommended, she has a history of no shows
Discharge planning otherwise per team, we will sign off at this time-pls call with questions
Assessment
-
Patient is an 89-year-old female with previous history of COPD, hypertension, anxiety, A-fib presenting from [facility] for recent choking episode that occurred while she was eating eggs which resulted in difficulty breathing and a checks x-ray. The
chest x-ray was concerning for pneumonia. She has complaints of fast heart rate and palpitations. She has been hospitalized twice for COPD, A-fib and hypotension in the past 2 months. In the emergency room, she was noted to have elevated proBNP,
bilateral pleural effusions, EKG with atrial flutter with variable AV block, lactic acidosis. She is placed on 3 L nasal cannula, at baseline on no oxygen supplementation at home. Adm to tele for AECOPD. We are consulted for eval.
AE COPD
SOB 2/2 choking episode
Acute hypoxic respiratory insufficiency
Acute on chronic heart failure exacerbation, proBNP 8000
Bilateral pleural effusions
A-fib/A-flutter
Hyponatremia
Metabolic acidosis
Conditions present prior to admission
COPD
Former smoker, 60 pack years-active on and off
Persistent atrial fibrillation on amiodarone and Eliquis
Chronic heart failure with preserved EF
Plan
Hypoxemia noted on arrival, O2 radha 64%, placed on 3 L--now weaned to RA
She has been placed on oxygen in the past but has been able to improved to room air
Home O2 evaluation can be done if needed
Prior history of lung disease is noted including COPD, last seen in office 2018 has not followed up
No prior PFTs for review
Spirometry obtained--mixed pattern that is severely reduced likely with OLD and RLD
This is likely due to COPD and CHF
She is already on Duonebs QID at home
Physical deconditioning is also likely a contributing factor
IS encouragement
Suspect patient has AECOPD, AE CHF, decompensation overall
She has had previous admissions and discharges from on 04/05 and 03/17 for similar
CXR/CT obtained indicating bilateral effusions
Other imaging reviewed-has minimal effusions on prior imaging
She is placed on IV antibiotics and p.o. prednisone
Can likely stop abx
proBNP 8000, she has not yet resumed on Lasix
Cardiology evaluation obtained for active A-fib, given Amio
Prior ECHO results are reviewed indicating preserved function
Comorbid heart failure exacerbation is noted
Smoking history noted-60 pack years, likely ongoing/intermittent use
Smoking cessation encouraged
Weight loss is noted, BMI 16
She has evidence of pulmonary cachexia
Prior ABG does not demonstrate chronic CO2 retention
Will need outpatient pulmonary evaluation in our office for PFTs and 6MWT-however she has been noncompliant in the past with no-show visits
Goals of care discussions would be needed in this situation with recurrent admissions and multiple serious comorbidities
She is DNR
We can arrange FU again, but she has history of no shows
Diagnostic Data
Chest X-Ray: 04/23/25-Left greater than right small bilateral pleural effusions with adjacent airspace opacities favored to represent atelectasis, however pneumonia cannot be excluded.
04/01/25-Mild opacity in the left lung base suggesting atelectasis and/or trace pleural fluid. No other pulmonary consolidation. No pneumothorax. Stable cardiomediastinal silhouette. Chronic degenerative changes of the spine.
CT Scan: AP 03/06/25-lung base- Lower Chest: Small bilateral pleural effusions with adjacent compressive atelectasis. Mild to moderate cardiomegaly. Small to moderate sliding hernia.
Echo: 03/07/25-1. Left ventricular ejection fraction is normal with an ejection fraction of 64 % by Garcia's biplane method of discs.
2. Right ventricular size and systolic function are within normal limits.
3. Aortic valve sclerosis without stenosis.
4. Dense mitral annular calcification.
5. In some views possibly posterior leaflet mitral valve prolapse. Moderate to severe probably severe mitral regurgitation.
6. Severe tricuspid regurgitation. Estimated pulmonary artery pressure of 61 mmHg assuming a right atrial pressure of 8 mmHg.
PFT's: 04/24/2025-FEV1 0.61 L 40%, FVC 0.62 L 31%, ratio 98-mixed pattern, overall severely reduced-weak effort
Reports and relevant images were personally reviewed.
Total time spent on this consultation __45__ minutes which includes review of history, physical exam, medications, laboratory data, personal review of imaging, extensive review of outpatient records, discussion with care team and respiratory therapy.
Subjective Data
-
Date of Service:
Date of Service: April 26, 2025
Chief Complaint: Pulmonary Follow Up
Subjective:
Denies new complaints, wants to eat lunch
DCCV cancelled
Objective Data
Data Reviewed
Vital Signs / I&O / Oxygen:
Vital Signs
Temp Pulse Resp BP Pulse Ox
96.8 F L 79 20 115/98 98
04/26/25 07:52 04/26/25 07:50 04/26/25 07:52 04/26/25 07:50 04/26/25 07:52
Intake and Output
04/25/25 04/26/25 04/27/25
06:59 06:59 06:59
Intake Total 480 / 480
Balance 480 / 480
SaO2 98
Nasal Cannula flow liters per 1
minute
Physical Exam
General: Comfortable and Other (thin appearing, NAD)
HEENT: Normocephalic, Anicteric, Moist Mucous Membranes and Other (L eye patch noted)
Cardiovascular: S1-S2 and Regular Rhythm
Respiratory: Clear (decreased overall) and Non-Labored Respirations
GI: Soft, Non Distended and Non Tender
Neurology: Awake, Alert, Oriented and No Motor Deficits
Skin: Warm, Dry and Good Color
Labs/Micro/Reports
Lab Data
04/26/25 03:42
04/26/25 03:42
Microbiology
04/23/25 14:42 Blood/Venous Blood Culture - Preliminary
No Growth in 48 hours- Final report to follow
04/23/25 14:30 Blood/Venous Blood Culture - Preliminary
No Growth in 48 hours- Final report to follow
04/23/25 14:32 Nasal Swab Influenza Types A & B (GERI) - Final
Negative for Influenza A & B, NAAT
Negative results must be combined with clinical observations
and patient history.
Nucleic Acid Amplification test (NAAT)performed on the
[employer] platform.
[2025-04-26] MEDS: MILK OF MAGNESIA 30 ML PO (10:14)
[2025-04-26] MEDS: ELIQUIS 2.5 MG PO (10:14)
[2025-04-26] MEDS: LIDOCAINE 4% PATCH 1 PATCH TOPICAL (10:15)
[2025-04-26] MEDS: PROTONIX 40 MG PO (10:15)
[2025-04-26] MEDS: CARDIZEM CD 240 MG PO (10:15)
[2025-04-26] MEDS: MUCINEX 600 MG PO (10:15)
[2025-04-26] MEDS: DELTASONE 40 MG PO (10:15)
[2025-04-26] MEDS: FLORASTOR 250 MG PO (10:15)
[2025-04-26] MEDS: LASIX 40 MG IV (10:15)
[2025-04-26] MEDS: FLUSH (NSS) 2 FLUSH IV (10:16)
--- NOTE | 2025-04-26 10:50 | W.PN.CARDCBS ---
Addendum entered and electronically signed by Krishna Harrell MD 04/26/25 12:43:
I saw and examined the patient.
The Trimmer Operator Three Knife's note was reviewed and I agree with the note.
Comment:
GEN: No distress, awake, Ox3
HEENT: supple, anicteric, mmm
LUNGS: scatt rhonchi
CV: Reg, S1/S2, 2/6 syst LSB, no gallop
ABD: soft, BS+, NT/ND
EXT: No edema
NEURO: Gross non-focal
SKIN: No rash
PLan:
Remains in sinus rhythm. Hopefully can maintain sinus rhythm as outpatient. Continue amiodarone 200 mg daily and digoxin 0.125 mg daily. Check digoxin level in 1 week.
Continue diltiazem and Eliquis.
Has diuresed relatively well. Continue Lasix 40 mg daily.
Her long-term prognosis is very poor with a high risk of readmission. I do not think with her age and frailty she is a candidate for any percutaneous valvular intervention.
Original Note:
Today's Communication / Plan
-
Cardiac medications for discharge:
Amiodarone 200 mg daily
Cardizem 240 mg daily
Digoxin 0.125 mg daily
Eliquis 2.5 mg twice daily
Lasix 40 mg p.o. daily
BMP/dig level in 1 week
Will arrange outpatient cardiac follow-up
Impression / Plan
-
Primary Ham Facer: initially seen by Dr. Shantal Mercado
Assessment:
Presentation with cough, SOB
Concern for aspiration PNA
Concern for acute HFpEF
Typical atrial flutter with RVR
Symptomatic paroxysmal atrial fibrillation, initially diagnosed 03/06/25
Admission [facility] for hematuria, urinary retention, afib, abd pain 03/06-03/16/25
Admission for afib 04/01-04/05/25
Moderate to severe MR
Severe TR
HTN
COPD
Active smoker
Hypoalbuminemia
DNR code status
ECHO 03/07/25: EF 64%, aortic sclerosis, dense MAC, in some views possible posterior MVP, moderate to severe probably severe MR, severe TR, PAP 61 mmHg
Plan:
- Patient presented with cough and shortness of breath
- Noted to be in typical atrial flutter with RVR. She has had several recent admissions for atrial fibrillation, which has been refractory to amiodarone therapy
- Also hypotensive, limiting rate control options.
- Digoxin added this admission to Amio 200 mg daily and Cardizem 240 mg daily
- She was scheduled for cardioversion today however spontaneously converted to sinus rhythm around 12 PM 04/25 and has maintained sinus rhythm since that time!
- continue eliquis 2.5mg BID
- continue treatment of aspiration per pulm/speech
- Diuresed this admission. Will plan to transition to p.o. Lasix 40 mg daily for discharge. Creatinine 1.1
- check BMP and dig level in 1 week
- Most recent echo 03/07/2025 with results as above. Suspect mitral regurgitation contributing to arrhythmia. Unclear if mitraclip candidate due to given frailty and comorbidities
- DNR code status
- Will arrange outpatient cardiac follow-up
- d/w hospitalist
Progress Note - Ham Facer
Subjective
Date of Service: April 26, 2025
With no new complaints overnight
Objective
Labs:
04/26/25 03:42
04/26/25 03:42
Labs
Hgb 11.7 g/dL (12.0-16.0) L 04/26/25 03:42
Hct 34.4 % (37.0-47.0) L 04/26/25 03:42
Plt Count 303 10^3/uL (130-400) 04/26/25 03:42
Sodium 134 mmol/L (135-145) L 04/26/25 03:42
Potassium 4.1 mmol/L (3.5-5.1) 04/26/25 03:42
BUN 37 mg/dl (7-17) H 04/26/25 03:42
Creatinine 1.1 mg/dL (0.6-1.0) H 04/26/25 03:42
Glucose 107 mg/dl (70-99) H 04/26/25 03:42
Troponins
04/23/25
14:30
Troponin I 0.029
Vital Signs and I&O:
Vital Signs
Temp Pulse Resp BP Pulse Ox
96.8 F L 79 20 115/98 98
04/26/25 07:52 04/26/25 07:50 04/26/25 07:52 04/26/25 07:50 04/26/25 07:52
Vital Signs
Temp Pulse Resp BP Pulse Ox
96.8 F L 79 20 115/98 98
04/26/25 07:52 04/26/25 07:50 04/26/25 07:52 04/26/25 07:50 04/26/25 07:52
Intake & Output
04/24/25 04/25/25 04/26/25 04/27/25
07:59 07:59 07:59 07:59
Intake Total 200 / 200 480 / 480
Balance 200 / 200 480 / 480
Physical Exam
Physical Exam
GEN: No distress, awake, alert, oriented to self, place. frail. glasses on with patch over L eye
HEENT: supple, anicteric, mmm, eomi
LUNGS: Few rhonchi, no wheezes
CV: Reg, S1/S2, 2/6 murmur
ABD: soft, BS+, NT/ND
EXT: No cyanosis, clubbing, edema
NEURO: Gross non-focal
SKIN: Warm, pink, dry. No rash
[2025-04-26] MEDS: OSCAL 500 + D PO (13:30)
[2025-04-26] MEDS: ATIVAN 0.5 MG PO (13:35)
[2025-04-26] MEDS: LANOXIN 125 MCG PO (13:35)
--- NOTE | 2025-04-26 14:27 | CM ---
Addendum entered by Dyana Hernandez RN 04/26/25 15:13:
Insurance authorization approved with ref# [id number] start date 04/26/25 with NRD 04/30/25 to be faxed to [phone]
Original Note:
Chart reviewed. Patient is an assist of ADLS, recently discharged from [facility] to [facility], prior to that she was living alone, independent of ADLS, split level, ambulates with a SPC. PT evaluation recommending SNF. Referrals sent to [facility] and [facility]. Patient medically stable for discharge. [facility] is the only facility with bed availability. Family and patient agreeable. Insurance Authorization sent to [facility], ref#
[id number]. Once we receive authorization patient will need ambulance transport set up to go to [facility]. Report to be called to [phone] 2nd floor, fax [phone]
[2025-04-26] MEDS: NICODERM TRANSDERMAL 7 MG TRANSDERM (16:26)
--- NOTE | 2025-04-26 18:20 | PTCARENOTE ---
Report called to [facility] at [facility]. Pt transported via ambulance stretcher. Pt left w/personal belongings incl cell phone, coding specialist home health, and clothing.
--- NOTE | 2025-04-26 20:37 | W.DCSUMMARY ---
Addendum entered and electronically signed by Virgie Ramírez MD 04/27/25 07:55:
Read, reviewed, and agree. See same day progress note for additional details. Time spent coordinating care, DC planning, review of DC plan of care with resident, transition of care, review of records in EMR, med rec, consults, notes, d/w
consultants, nursing, family, and CM = [address] Santana spoke with her son. It would appear, that if she has another exacerbation that they may lean towards comfort/hospice.
Original Note:
Discharge Summary
Discharge Data
Date of Admission: 04/23/25
Date of Discharge: 04/26/25
-
Pending Results: No
Hospital Course
Discharging Physician : Bianca Snatana MD, Darrell,Virgie Arias MD
Disposition : Skilled rehab
Primary care physician : Raquel Abbott
Principal Discharge diagnosis :
Acute exacerbation of Chronic obstructive pulmonary disease
Acute hypoxic respiratory failure
A-flutter atrial flutter variable block
Acute exacerbation of Chronic heart failure with preserved ejection fraction
Renal insufficiency
Dysphagia
Hypocalcemia
Protein energy malnutrition
Essential hypertension
Chronic constipation
Anxiety
Sacral pressure wound stage III
Deconditioning
Hospital Course :
She is an 89-year-old female with past medical history of COPD hypertension A-fib via RVR who presented on 04/24/2025 to the [facility] ED, from her acute care rehab due to trouble breathing.
She had a choking episode while eating and chest x-ray done revealed visit to the ED.
Of note she this is her third trip to the hospital in 3 months between rehabs
on presentation to the ED, she was seen to be in acute respiratory distress, vital signs unstable, reduced right lower lung air entry and an irregular heart rate.
Investigations showed, lactic acidosis, elevated proBNP, Left greater than right small bilateral pleural effusions with adjacent airspace opacities, atelectasis versus pneumonia, EKG with atrial flutter with variable AV block.
Flu and COVID-negatives
She was admitted to the IVU and was seen in consultation with pulmonology and cardiology.
During admission to the hospital she she was placed on a prednisone taper, oxygen therapy, respiratory treatment, IV Lasix, IV digoxin.
Her other chronic conditions were appropriately managed.
She was seen by speech-language pathologist which recommended IDDSI 2 and 6 diet.
She eventually spontaneously converted to sinus rhythm with improvement in her respiratory status she was subsequently discharged on oral digoxin have furosemide increased to 40 mg and prednisone taper
To continue with her other medications.
She she has been discharged to a half-way facility for rehabilitation and is to follow-up in outpatient with cardiology, pulmonology, speech and memory pathology, and her primary care.
Important imaging findings :
CR Chest Portable - 1 View
04/23/2025
Left greater than right small bilateral pleural effusions with adjacent airspace opacities favored to represent atelectasis, however pneumonia cannot be excluded
CR Chest Portable - 1 View
04/25/2025
There are bilateral pleural effusions. Bibasilar airspace disease is likely compressive atelectasis
Discharge Plan
-
Patient Disposition: Halfway/SNF
Discharge Diagnosis/Procedures: Acute exacerbation of Chronic obstructive pulmonary disease
Acute hypoxic respiratory failure
A-flutter atrial flutter variable block
Acute exacerbation of Chronic heart failure with preserved ejection fraction
Renal insufficiency
Dysphagia
Hypocalcemia
Protein energy malnutrition
Essential hypertension
Chronic constipation
Anxiety
Sacral pressure wound stage III
Deconditioning on
Condition: Fair
Diet: 2 Gram Sodium and Restrict fluids to 48 oz
Additional Diets: 1. Level 6 (soft and bite-sized) solids, but downgrade to mildly thick liquids.
2. Pills whole in applesauce.
3. Allow ice chips in between meals per ARHP guidelines.
4. Aspiration precautions.
5. Follow up speech therapy after discharge to assist in advancing diet as clinically indicated. Further diet modifications per treating therapist discretion based on their personal assessment and observations with patient after discharge.
Activity: As tolerated
Driving Restrictions: As prior to admission
Bathing Restrictions: None
Blood Work: CBC/BMP/digoxin level in 1 week
Other Services: VN, PT, OT and ST
Specialty Instructions: Weigh Daily- Call MD for wt gain/loss 3 lbs overnight/5 lbs in 1 week
Activity Restrictions/Additional Instructions:
Wound Care Instructions Sacral Stage 3 PI- Clean with normal saline, apply Honey Gel to open wound, cover with adaptic and foam. Change Q 48 hours and PRN.
Air overlay or air bed
Turning schedule
Follow up at wound care center call for an appointment.
Instructions: *[facility] Heart Failure Instructions
Referrals:
Bradley Lewis [Outside]
Raquel Abbott DO [Family Provider, General]
Referral Note: Follow up with your primary care in less than 1 week for your post hospital discharge visit
Cassandra Florence CRNP [Specified Professional Personl, Cardiology] - 05/14/25 1:40 pm
Referral Note: You have a cardiology follow-up appointment at the [place] office. Please call with questions
Additional Discharge Medication Instructions: Digoxin was added to your medication list to be taking by mouth daily. You will need to follow up with your roller staker in 1 week and have this levels checked in your blood.
Your Furosemide (Lasix ) was increased to 40mg, take this medication daily by mouth
You where prescribed Prednisone tablets to be taken in daily with reduction of 1 tablet every 2 days. This will be completed in 7 days (05/03/2025)
Doxycycline was stopped in this admission
You can continue to take your other medications as prior to admission.
Prescriptions:
New
furosemide 10 mg/mL Solution
40 mg IV DAILY Qty: 30 0RF
prednisone 10 mg Tablet
See Taper PO DAILY Qty: 16 0RF
Taper: Prednisone DC Starting at 40 mg daily
40 mg Daily for 1 Day and 0 Hour
30 mg Daily for 2 Days and 0 Hour
20 mg Daily for 2 Days and 0 Hour
10 mg Daily for 2 Days and 0 Hour
digoxin 125 mcg (0.125 mg) Tablet
125 mcg PO NOON Qty: 30 0RF
Continued
lidocaine 5 % Adhesive Patch,Medicated
1 patch TOPICAL DAILYPRN PRN (Reason: lower back)
ipratropium-albuterol 0.5 mg-3 mg(2.5 mg base)/3 mL Solution For Nebulization
3 ml inhalation R QID Qty: 0 0RF
ipratropium-albuterol 0.5 mg-3 mg(2.5 mg base)/3 mL Solution For Nebulization
3 ml inhalation R Q4HPRN PRN (Reason: sob) Qty: 0 0RF
pantoprazole 40 mg Tablet,Delayed Release (Dr/Ec)
40 mg PO DAILY Qty: 0 0RF
oxycodone 5 mg Tablet
5 mg PO BIDPRN PRN (Reason: severe pain) Qty: 5 0RF
Eliquis 2.5 mg Tablet
2.5 mg PO BID Qty: 0 0RF
guaifenesin 600 mg Tablet Extended Release 12hr
600 mg PO Q12 Qty: 0 0RF
sennosides [senna] 8.6 mg Tablet
17.2 mg PO Q48H
bisacodyl [Dulcolax (bisacodyl)] 10 mg Suppository
10 mg AL DAILYPRN PRN (Reason: if no bm aftr mom give on day 5)
Fleet Enema 19-7 gram/118 mL Enema
118 ml AL DAILYPRN PRN (Reason: if no bm aftr dulcolax give on day 6)
docusate sodium [Colace] 100 mg Capsule
200 mg PO HS
polyethylene glycol 3350 17 gram powder in packet
17 g PO DAILYPRN PRN (Reason: constipation)
lorazepam 0.5 mg Tablet
0.5 mg PO Q6HPRN PRN (Reason: anixety) Qty: 4 0RF
acetaminophen 325 mg Tablet
650 mg PO Q4H PRN (Reason: fever)
magnesium hydroxide [Milk of Magnesia] 400 mg/5 mL Suspension
30 ml PO K24KGUR PRN (Reason: if no bm for 3 days gvie on day 4)
acetaminophen 325 mg tablet
650 mg PO Q6HPRN PRN (Reason: mild pain)
amiodarone [Pacerone] 200 mg tablet
200 mg PO HS
nicotine 7 mg/24 hr patch 24 hour
7 mg transdermal QPM
diltiazem HCl 240 mg Capsule,Extended Release 24 Hr
240 mg PO DAILY Qty: 0 0RF
Saccharomyces boulardii [Florastor] 250 mg Capsule
250 mg PO BID Qty: 0 0RF
calcium carbonate-vitamin D3 500 mg-3.125 mcg (125 unit) Tablet
1 tab PO DAILY@1200 Qty: 0 0RF
peppermint 350 mg Capsule
50 mg PO DAILY Qty: 0 0RF
Discontinued
furosemide 20 mg Tablet
20 mg PO MOWEFR
doxycycline hyclate 100 mg Tablet
100 mg PO BID
Rx Instructions:
started 04/23/25 ends 04/30/25 MKO
Discharge Orders:
Discharge Patient (As Directed); Ordered 04/26/25
Ordered By: Bianca Santana
Care Plan Goals
Care Plan Goals:
Problem: Readiness for enhanced knowledge related to diagnosis and treatment plan
Goal: Understand your diagnosis and treatment plan needs, including medications if applicable.
Instructions: Know your diagnosis, underlying causes and treatment plan options, including medications if applicable. Consult with your health care team to learn about your diagnosis and treatment plan, including medications if applicable.
Discharge Date and Time
Discharge Date/Time: 04/26/25 18:40
Print Language: FILIPINO
== END 2025-04-26 18:40 | DRG 177 ==
LOC: IVU 19:34
PROVIDERS: ADMITTING PHYSICIAN Internal Medicine; CONSULT PHYSICIAN Nuclear Medicine Nuclear Cardiology; EMERGENCY PHYSICIAN Emergency Medicine; FAMILY PHYSICIAN Family Medicine; OTHER PHYSICIAN Internal Medicine
DX: J69.0 Pneumonitis due to inhalation of food and vomit (principal); I50.33 Acute on chronic diastolic (congestive) heart failure; J96.01 Acute respiratory failure with hypoxia; J44.1 Chronic obstructive pulmonary disease with (acute) exacerbation; I48.3 Typical atrial flutter; E46 Unspecified protein-calorie malnutrition; R64 Cachexia; Z68.1 Body mass index [BMI] 19.9 or less, adult; J98.11 Atelectasis; E87.1 Hypo-osmolality and hyponatremia; E87.20 Acidosis, unspecified; I48.19 Other persistent atrial fibrillation; J44.0 Chronic obstructive pulmonary disease with (acute) lower respiratory infection; J18.9 Pneumonia, unspecified organism; I11.0 Hypertensive heart disease with heart failure; N28.9 Disorder of kidney and ureter, unspecified; R13.10 Dysphagia, unspecified; E83.51 Hypocalcemia; K59.09 Other constipation; F41.9 Anxiety disorder, unspecified; Z66 Do not resuscitate; I44.30 Unspecified atrioventricular block; R54 Age-related physical debility; Z11.52 Encounter for screening for COVID-19; Z88.0 Allergy status to penicillin; Z79.01 Long term (current) use of anticoagulants; E88.09 Other disorders of plasma-protein metabolism, not elsewhere classified; F17.200 Nicotine dependence, unspecified, uncomplicated; L89.152 Pressure ulcer of sacral region, stage 2
CPT/HCPCS: 71045; 71046; 80048; 80053; 80202; 83605; 83735; 83880; 84484; 85025; 85027; 87040; 87502; 87811; 92526; 92610; 93005; 94010; 94640; 96374; 97163; 97167; 97530; 97535; 99285; J1160